=== PATIENT | male | born 1960 | race Two or more races ===

== ENCOUNTER 2018-04-19 02:47 | Emergency (ER) | payer SELFPAY ==
[~2018-04-19] VITALS: Ht 193 cm; Wt 158.8 kg
[2018-04-19] MEDS ORDERED: ONDANSETRON HCL 4 MG/2 ML VIAL ONE (03:51)
[2018-04-19] MEDS ORDERED: ONDANSETRON HCL 4 MG/2 ML VIAL IV ONE (04:00)
[2018-04-19] MEDS ORDERED: HYDROmorphone HCL 2 MG/ML VL IV ONE (04:00)
[2018-04-19] MEDS ORDERED: CARISOPRODOL 350 MG TAB PO ONE (08:30)
[2018-04-19 09:05] VITALS: BP 130/78
== END 2018-04-19 08:19 | disposition home or self-care (01) ==
LOC: EDBD 02:47 → ER 02:53
DX: M54.5 Low back pain (principal); J45.909 Unspecified asthma, uncomplicated
CPT/HCPCS: 72131; 93005; 96374; 96375; 99284; J1170; J2405

== ENCOUNTER → 2020-06-08 | Outpatient (CLI) | payer OTHER ==
[2020-06-08 10:32] LABS: Basophils # (auto) 0.1 10 ^3/uL (0-0.2); Basophils % (auto) 1.6 % (0.0-2.0); Eosinophils # (auto) 0.1 10 ^3/uL (0-0.8); Eosinophils % (auto) 1.5 % (0.0-7.0); Hematocrit 40.1 % (41.0-53.0); Hemoglobin 13.7 g/dL (13.5-17.5); Lymphocytes # (auto) 1.2 10 ^3/uL (0.4-5.4); Lymphocytes % (auto) 25.9 % (10.0-50.0); Mean Corpuscular Hemoglobin 30.2 pg (28.0-32.0); Mean Corpuscular Hgb Conc. 34.1 g/dL (32.0-36.0); Mean Corpuscular Volume 88.5 fL (80.0-100.0); Monocytes # (auto) 0.5 10 ^3/uL (0-1.3); Monocytes % (auto) 10.2 % (0.0-12.0); Neutrophils # (auto) 2.8 10 ^3/uL (1.6-8.6); Neutrophils % (auto) 60.8 % (37.0-80.0); Nucleated Red Blood Cells % 0.1 %; Platelet Count (auto) 221 10^3/uL (140-450); Red Blood Cells 4.53 10^6/uL (4.5-5.90); Red Cell Distribution Width 13.5 % (11.8-14.3); Urine Bacteria NONE SEEN /hpf (None Seen); Urine Blood Negative /uL (Negative); Urine Mucus FEW (None Seen); Urine Specific Gravity 1.024 (1.001-1.035); Urine WBC <1 /hpf (0 - 3); White Blood Cell 4.6 10^3/uL (4.4-10.8)
[2020-06-08 10:52] LABS: INR 1.05 (0.9-1.15); Partial Thromboplastin Time 30.5 sec (23.0-31.2)
[2020-06-08 11:06] LABS: Albumin 3.5 g/dL (3.4-5.0); Potassium 3.6 mmol/L (3.5-5.1)
[2020-06-08 11:11] LABS: Bilirubin, Total 0.6 mg/dL (0.2-1.0); Total Protein 6.7 g/dL (6.4-8.2)
== END | disposition home or self-care (01) ==
LOC: LAB 10:04
PROVIDERS: ATTEND Internal Medicine
DX: I50.9 Heart failure, unspecified (principal); J45.909 Unspecified asthma, uncomplicated; E66.01 Morbid (severe) obesity due to excess calories; K70.9 Alcoholic liver disease, unspecified; G47.33 Obstructive sleep apnea (adult) (pediatric); Z12.5 Encounter for screening for malignant neoplasm of prostate
CPT/HCPCS: 36415; 80053; 80061; 81001; 83036; 83880; 84153; 85025; 85610; 85730

== ENCOUNTER 2020-07-09 15:08 | Inpatient (IN) | payer OTHER ==
[~2020-07-09] VITALS: Ht 165.1 cm; Wt 147.9 kg
[2020-07-09] MEDS ORDERED: ETOMIDATE (2MG/ML) 20ML VIAL IV ONE ×2 (15:27→15:45)
[2020-07-09] MEDS ORDERED: SUCCINYLCHOLINE CHLORIDE 20 MG/ML 10ML VIAL IV ONE ×2 (15:27→15:45)
[2020-07-09] MEDS ORDERED: MIDAZOLAM DRIP 50 mg/50mL 50 ML IV ONE ×2 (15:28→16:39)
[2020-07-09] MEDS ORDERED: cefTRIAXone 1GM/50ML D5W 50 ML IV ONE (15:30)
[2020-07-09] MEDS ORDERED: FUROSEMIDE 40 MG/4 ML VIAL IV ONE (15:30)
[2020-07-09] MEDS: MIDAZOLAM DRIP 50 mg/50mL 50 ML IV SCH ×2 (15:45→20:00)
[2020-07-09] MEDS ORDERED: fentaNYL Drip 2500mCg/250mlNS 250 ML IV ONE (15:52)
[2020-07-09] MEDS ORDERED: NOREPINEPHRINE 8 MG/250ML KIT 250 ML IV ONE (15:58)
[2020-07-09 15:59] LABS: Urine Bacteria FEW /hpf (None Seen); Urine Blood 2+ /uL (Negative); Urine Hyaline Cast FEW /lpf (0 - 2); Urine Mucus FEW (None Seen); Urine WBC 2 /hpf (0 - 3)
[2020-07-09] MEDS: fentaNYL Drip 2500mCg/250mlNS 250 ML IV SCH (16:00)
[2020-07-09] MEDS: NOREPINEPHRINE 8 MG/250ML KIT 250 ML IV SCH (16:00)
[2020-07-09 16:03] LABS: Basophils # (auto) 0.1 10 ^3/uL (0-0.2); Basophils % (auto) 0.5 % (0.0-2.0); Eosinophils # (auto) 0 10 ^3/uL (0-0.8); Hematocrit 42.6 % (41.0-53.0); Hemoglobin 14.2 g/dL (13.5-17.5); Lymphocytes % (auto) 9.9 % (10.0-50.0); Mean Corpuscular Hemoglobin 29.9 pg (28.0-32.0); Mean Corpuscular Hgb Conc. 33.2 g/dL (32.0-36.0); Monocytes # (auto) 1.6 10 ^3/uL (0-1.3); Neutrophils # (auto) 16.4 10 ^3/uL (1.6-8.6); Neutrophils % (auto) 81.6 % (37.0-80.0); Nucleated Red Blood Cells % 0.2 %; Red Blood Cells 4.73 10^6/uL (4.5-5.90); Red Cell Distribution Width 13.8 % (11.8-14.3); White Blood Cell 20.1 10^3/uL (4.4-10.8)
[2020-07-09 16:12] LABS: Lactic Acid w/Reflex 10.2 mmol/L (0.4-2.0)
[2020-07-09 16:32] LABS: Potassium 3.4 mmol/L (3.5-5.1)
[2020-07-09 16:33] LABS: Albumin 2.6 g/dL (3.4-5.0); BUN/Creatinine Ratio 14.6; Bilirubin, Total 1.1 mg/dL (0.2-1.0); Calcium 7.4 mg/dL (8.5-10.1); Total Protein 7.4 g/dL (6.4-8.2)
[2020-07-09 16:34] LABS: CRP High Sensitivity 17.3 mg/dL (< 0.3); Magnesium 2.6 mg/dL (1.6-2.6)
[2020-07-09] MEDS ORDERED: ACETAMINOPHEN 650 mg PER 20.3 mL UD ONE (16:36)
[2020-07-09 16:53] LABS: INR 1.22 (0.9-1.15); Partial Thromboplastin Time 25.8 sec (23.0-31.2)
[2020-07-09] MEDS ORDERED: ACETAMINOPHEN 650 mg PER 20.3 mL UD PO ONE (17:15)
[2020-07-09] MEDS ORDERED: ENOXAPARIN SOD 150 MG/1 ML SYRINGE SC ONE (17:30)
[2020-07-09] MEDS ORDERED: DOXYCYCLINE 100MG/250ML 250 ML IV ONE (17:45)
[2020-07-09] MEDS ORDERED: DexAMETHasone SOD PHOS 10MG/1ML VIAL INJ IV ONE (17:45)
[2020-07-09] MEDS ORDERED: MORPHINE SULFATE INJECTION 2 MG/ML SYRG IV PRN (18:00)
[2020-07-09] MEDS ORDERED: NITROGLYCERIN 0.4 MG SL TAB SL PRN (18:00)
[2020-07-09 18:05] VITALS: BP 92/57
[2020-07-09] MEDS: PIPERACILLIN-TAZOB 2.25GM 50 ML IV SCH (18:49)
[2020-07-09 21:35] LABS: Creatinine, Urine 245 mg/dL (30.0-125.0); Sodium Urine 12 mmol/L (40-220)
[2020-07-10] VITALS (8 sets, daily range): BP systolic 98–128; BP diastolic 57–75
[2020-07-10] MEDS: PIPERACILLIN-TAZOB 2.25GM 50 ML IV SCH ×4 (01:17→17:31)
[2020-07-10] MEDS: NOREPINEPHRINE 8 MG/250ML KIT 250 ML IV SCH (07:26)
[2020-07-10] MEDS: DexAMETHasone SOD PHOS 10MG/1ML VIAL INJ IV SCH (09:58)
[2020-07-10] MEDS: ZINC SULFATE 220mg CAP or TAB PO SCH (09:59)
[2020-07-10] MEDS: ASPirin 81 mg TAB PO SCH (09:59)
[2020-07-10] MEDS: CHOLECALCIFEROL (VITD3) 2,000 UNIT CAP/TAB PO SCH (09:59)
[2020-07-10] MEDS: PANTOPRAZOLE 40 MG/10 ML VIAL INJ IV SCH (09:59)
[2020-07-10] MEDS: ENOXAPARIN SOD 150 MG/1 ML SYRINGE SC SCH (09:59)
[2020-07-10] MEDS: ASCORBIC ACID 1,000 MG TAB PO SCH (10:00)
[2020-07-10] MEDS ORDERED: DOXYCYCLINE 100MG/250ML 250 ML IV SCH (10:00)
[2020-07-10 11:02] LABS: Hematocrit 41.9 % (41.0-53.0); Hemoglobin 13.9 g/dL (13.5-17.5); Mean Corpuscular Hemoglobin 29.4 pg (28.0-32.0); Mean Corpuscular Hgb Conc. 33.3 g/dL (32.0-36.0); Mean Corpuscular Volume 88.3 fL (80.0-100.0); Red Blood Cells 4.74 10^6/uL (4.5-5.90); Red Cell Distribution Width 13.3 % (11.8-14.3); White Blood Cell 23.5 10^3/uL (4.4-10.8)
[2020-07-10 11:05] LABS: Basophils % (manual) 0 (0.0-2.0); Blast Cells 0; Eosinophils % (manual) 0 (0-7); Monocytes % (manual) 0 (0-12); Promyelocytes % 0; Reactive Lymphocytes 0
[2020-07-10 11:14] LABS: Albumin 2.4 g/dL (3.4-5.0); BUN/Creatinine Ratio 20.2; Bilirubin, Total 0.7 mg/dL (0.2-1.0); Calcium 7.7 mg/dL (8.5-10.1); Potassium 3.4 mmol/L (3.5-5.1)
[2020-07-10] MEDS ORDERED: SODIUM CHLORIDE 0.9% 1,000 ML IV ONE (12:30)
[2020-07-10] MEDS: MIDAZOLAM DRIP 50 mg/50mL 50 ML IV SCH ×3 (12:54→22:00)
[2020-07-10 13:24] LABS: Band Neutrophils % (manual) 12; Lymphocytes % (manual) 3 (10.0-50.0); Metamyelocytes % 2; Myelocytes % 1
[2020-07-10] MEDS: fentaNYL Drip 2500mCg/250mlNS 250 ML IV SCH (16:00)
[2020-07-10] MEDS ORDERED: REMDESIVIR 200 MG in NS 210ml LOADING DOSE ADULT IV ONE (18:00)
[2020-07-10] MEDS: LINEZOLID 600MG/300ML 300 ML IV SCH (22:21)
[2020-07-11] VITALS (88 sets, daily range): BP systolic 81–126; BP diastolic 33–66
[2020-07-11] MEDS ORDERED: MIDAZOLAM DRIP 50 mg/50mL 50 ML IV ONE (00:24)
[2020-07-11 05:55] LABS: Eosinophils # (auto) 0 10 ^3/uL (0-0.8); Lymphocytes # (auto) 0.6 10 ^3/uL (0.4-5.4); Monocytes # (auto) 0.9 10 ^3/uL (0-1.3); Monocytes % (auto) 3.8 % (0.0-12.0)
[2020-07-11] MEDS: PIPERACILLIN-TAZOB 2.25GM 50 ML IV SCH ×3 (06:00→12:06)
[2020-07-11 06:03] LABS: Basophils # (auto) 0.2 10 ^3/uL (0-0.2); Basophils % (auto) 0.7 % (0.0-2.0); Hemoglobin 13.2 g/dL (13.5-17.5); Lymphocytes % (auto) 2.5 % (10.0-50.0); Mean Corpuscular Hemoglobin 30.8 pg (28.0-32.0); Mean Corpuscular Hgb Conc. 34.8 g/dL (32.0-36.0); Mean Corpuscular Volume 88.6 fL (80.0-100.0); Neutrophils # (auto) 21.3 10 ^3/uL (1.6-8.6); Nucleated Red Blood Cells % 0.7 %; Red Blood Cells 4.29 10^6/uL (4.5-5.90); Red Cell Distribution Width 13.7 % (11.8-14.3); White Blood Cell 22.9 10^3/uL (4.4-10.8)
[2020-07-11 07:41] LABS: Potassium 3.7 mmol/L (3.5-5.1)
[2020-07-11 07:53] LABS: BUN/Creatinine Ratio 21.3; Calcium 7.6 mg/dL (8.5-10.1)
[2020-07-11] MEDS: ENOXAPARIN SOD 150 MG/1 ML SYRINGE SC SCH ×2 (09:02→22:00)
[2020-07-11] MEDS: LINEZOLID 600MG/300ML 300 ML IV SCH ×2 (09:02→22:00)
[2020-07-11] MEDS: ASPirin 81 mg TAB PO SCH (09:03)
[2020-07-11] MEDS: CHOLECALCIFEROL (VITD3) 2,000 UNIT CAP/TAB PO SCH (09:03)
[2020-07-11] MEDS: MIDAZOLAM DRIP 50 mg/50mL 50 ML IV SCH ×2 (09:03→18:47)
[2020-07-11] MEDS: ASCORBIC ACID 1,000 MG TAB PO SCH (09:03)
[2020-07-11] MEDS: ZINC SULFATE 220mg CAP or TAB PO SCH (09:03)
[2020-07-11] MEDS: DexAMETHasone SOD PHOS 10MG/1ML VIAL INJ IV SCH (09:04)
[2020-07-11] MEDS: PANTOPRAZOLE 40 MG/10 ML VIAL INJ IV SCH (10:00)
[2020-07-11] MEDS: fentaNYL Drip 2500mCg/250mlNS 250 ML IV SCH (16:00)
[2020-07-11] MEDS: NOREPINEPHRINE 8 MG/250ML KIT 250 ML IV SCH (16:00)
[2020-07-11] MEDS: REMDESIVIR 100mg in NS 230ml DAILYx4DAYS (NO VENT) IV SCH (17:45)
[2020-07-11] MEDS: PIPERACILLIN-TAZOB 3.375GM 100 ML IV SCH (17:47)
[2020-07-12] VITALS (84 sets, daily range): BP systolic 84–131; BP diastolic 46–78
[2020-07-12 01:32] LABS: Basophils # (auto) 0.2 10 ^3/uL (0-0.2); Basophils % (auto) 0.8 % (0.0-2.0); Eosinophils # (auto) 0 10 ^3/uL (0-0.8); Hemoglobin 13.6 g/dL (13.5-17.5); Lymphocytes # (auto) 0.7 10 ^3/uL (0.4-5.4); Lymphocytes % (auto) 3.2 % (10.0-50.0); Mean Corpuscular Volume 88.2 fL (80.0-100.0); Monocytes # (auto) 0.7 10 ^3/uL (0-1.3); Monocytes % (auto) 3.2 % (0.0-12.0); Neutrophils # (auto) 20.4 10 ^3/uL (1.6-8.6); Neutrophils % (auto) 92.8 % (37.0-80.0); Nucleated Red Blood Cells % 0.8 %; Red Blood Cells 4.53 10^6/uL (4.5-5.90); Red Cell Distribution Width 13.9 % (11.8-14.3); White Blood Cell 21.9 10^3/uL (4.4-10.8)
[2020-07-12 01:47] LABS: Albumin 2.2 g/dL (3.4-5.0); Calcium 7.7 mg/dL (8.5-10.1); Potassium 3.7 mmol/L (3.5-5.1)
[2020-07-12 01:52] LABS: BUN/Creatinine Ratio 25.7; Bilirubin, Total 0.5 mg/dL (0.2-1.0); Total Protein 6.3 g/dL (6.4-8.2)
[2020-07-12] MEDS: PIPERACILLIN-TAZOB 3.375GM 100 ML IV SCH ×4 (05:48→20:00)
[2020-07-12] MEDS: LINEZOLID 600MG/300ML 300 ML IV SCH ×2 (09:42→21:52)
[2020-07-12] MEDS: CHOLECALCIFEROL (VITD3) 2,000 UNIT CAP/TAB PO SCH (10:25)
[2020-07-12] MEDS: DexAMETHasone SOD PHOS 10MG/1ML VIAL INJ IV SCH (10:25)
[2020-07-12] MEDS: PANTOPRAZOLE 40 MG/10 ML VIAL INJ IV SCH (10:25)
[2020-07-12] MEDS: ASCORBIC ACID 1,000 MG TAB PO SCH (10:25)
[2020-07-12] MEDS: ZINC SULFATE 220mg CAP or TAB PO SCH (10:25)
[2020-07-12] MEDS: ASPirin 81 mg TAB PO SCH (10:25)
[2020-07-12] MEDS: ENOXAPARIN SOD 150 MG/1 ML SYRINGE SC SCH ×2 (10:26→21:36)
[2020-07-12] MEDS ORDERED: ATROPINE SULF 1 MG/10ml SYR IV PRN (12:00)
[2020-07-12] MEDS ORDERED: DEXTROSE (50%) 50ML SYRG IV PRN (12:00)
[2020-07-12] MEDS ORDERED: FUROSEMIDE 20 MG/2 ML VIAL IV ONE (13:30)
[2020-07-12] MEDS: SOD CHL 0.45% 1,000 ML IV SCH (15:10)
[2020-07-12] MEDS: REMDESIVIR 100mg in NS 230ml DAILYx4DAYS (NO VENT) IV SCH (17:00)
[2020-07-12 17:47] LABS: Creatinine, Urine 189 mg/dL (30.0-125.0); Sodium Urine 22 mmol/L (40-220)
[2020-07-12] MEDS ORDERED: FUROSEMIDE 20 MG/2 ML VIAL IV SCH (18:00)
[2020-07-12] MEDS ORDERED: SOD CHL 0.45% 500 ML IV ONE (18:15)
[2020-07-12] MEDS: ACCU-CHEK COMFORT CURVE STRIP VI SCH ×2 (18:20→21:36)
[2020-07-12] MEDS: InsuLIN REG 1unit/0.01ml Soln (100units/ml) SC SCH ×2 (18:30→22:19)
[2020-07-12] MEDS: NOREPINEPHRINE 8 MG/250ML KIT 250 ML IV SCH (19:02)
[2020-07-12] MEDS: fentaNYL Drip 2500mCg/250mlNS 250 ML IV SCH (19:32)
[2020-07-12] MEDS: MIDAZOLAM DRIP 50 mg/50mL 50 ML IV SCH (21:37)
[2020-07-12] MEDS ORDERED: ATORVASTATIN 20 MG TAB PO SCH (22:00)
[2020-07-13] VITALS (89 sets, daily range): BP systolic 92–148; BP diastolic 49–97
[2020-07-13] MEDS: PIPERACILLIN-TAZOB 3.375GM 100 ML IV SCH ×4 (00:27→19:03)
[2020-07-13] MEDS: MIDAZOLAM DRIP 50 mg/50mL 50 ML IV SCH ×3 (00:43→12:56)
[2020-07-13] MEDS: SOD CHL 0.45% 1,000 ML IV SCH ×2 (06:34→17:40)
[2020-07-13] MEDS: fentaNYL Drip 2500mCg/250mlNS 250 ML IV SCH (06:39)
[2020-07-13] MEDS: ACCU-CHEK COMFORT CURVE STRIP VI SCH ×4 (06:54→21:31)
[2020-07-13] MEDS: InsuLIN REG 1unit/0.01ml Soln (100units/ml) SC SCH ×4 (06:55→21:31)
[2020-07-13 09:12] LABS: Basophils # (auto) 0.1 10 ^3/uL (0-0.2); Basophils % (auto) 0.4 % (0.0-2.0); Eosinophils # (auto) 0 10 ^3/uL (0-0.8); Hemoglobin 13.6 g/dL (13.5-17.5); Lymphocytes # (auto) 0.3 10 ^3/uL (0.4-5.4); Mean Corpuscular Hemoglobin 29.7 pg (28.0-32.0); Mean Corpuscular Volume 89.8 fL (80.0-100.0); Monocytes # (auto) 0.7 10 ^3/uL (0-1.3); Monocytes % (auto) 4.4 % (0.0-12.0); Neutrophils # (auto) 15.7 10 ^3/uL (1.6-8.6); Neutrophils % (auto) 93.2 % (37.0-80.0); Nucleated Red Blood Cells % 0.2 %; Red Blood Cells 4.57 10^6/uL (4.5-5.90); Red Cell Distribution Width 13.7 % (11.8-14.3); White Blood Cell 16.9 10^3/uL (4.4-10.8)
[2020-07-13 09:33] LABS: Albumin 2.1 g/dL (3.4-5.0); BUN/Creatinine Ratio 27.9; Calcium 7.3 mg/dL (8.5-10.1); Potassium 3.9 mmol/L (3.5-5.1)
[2020-07-13 09:36] LABS: Bilirubin, Total 0.7 mg/dL (0.2-1.0); Total Protein 6.1 g/dL (6.4-8.2)
[2020-07-13] MEDS: ASPirin 81 mg TAB PO SCH (09:44)
[2020-07-13] MEDS: PANTOPRAZOLE 40 MG/10 ML VIAL INJ IV SCH (09:44)
[2020-07-13] MEDS: DexAMETHasone SOD PHOS 10MG/1ML VIAL INJ IV SCH (09:44)
[2020-07-13] MEDS: ZINC SULFATE 220mg CAP or TAB PO SCH (09:44)
[2020-07-13] MEDS: ASCORBIC ACID 1,000 MG TAB PO SCH (09:44)
[2020-07-13] MEDS: ENOXAPARIN SOD 150 MG/1 ML SYRINGE SC SCH ×2 (09:45→21:30)
[2020-07-13] MEDS: CHOLECALCIFEROL (VITD3) 2,000 UNIT CAP/TAB PO SCH (09:45)
[2020-07-13] MEDS: LINEZOLID 600MG/300ML 300 ML IV SCH ×2 (09:46→21:30)
[2020-07-13] MEDS: IPRATROPIUM BROM 0.5 MG/2.5ML INH SOL NEB SCH ×2 (13:05→18:36)
[2020-07-13] MEDS: ALBUTEROL SULF 2.5 MG/0.5ML(0.5%) NEB SOLN NEB SCH ×2 (13:06→18:36)
[2020-07-13] MEDS: REMDESIVIR 100mg in NS 230ml DAILYx4DAYS (NO VENT) IV SCH (17:34)
[2020-07-13] MEDS: NOREPINEPHRINE 8 MG/250ML KIT 250 ML IV SCH (17:34)
[2020-07-13] MEDS: BUDESONIDE (INHALATION) 0.5 MG/2 ML NEB NEB SCH (18:36)
[2020-07-13] MEDS ORDERED: DOPamine 1600MCG/ML D5W 250 ML IV ONE (21:38)
[2020-07-13] MEDS: DOPamine 1600MCG/ML D5W 250 ML IV SCH (22:00)
[2020-07-13] MEDS: ACETAMINOPHEN 500 MG TAB PO PRN (23:57)
[2020-07-14] VITALS (92 sets, daily range): BP systolic 89–161; BP diastolic 58–103
[2020-07-14] MEDS: IPRATROPIUM BROM 0.5 MG/2.5ML INH SOL NEB SCH ×4 (00:23→18:24)
[2020-07-14] MEDS: ALBUTEROL SULF 2.5 MG/0.5ML(0.5%) NEB SOLN NEB SCH ×4 (00:23→18:24)
[2020-07-14 03:42] LABS: Basophils # (auto) 0.1 10 ^3/uL (0-0.2); Basophils % (auto) 0.5 % (0.0-2.0); Eosinophils # (auto) 0 10 ^3/uL (0-0.8); Eosinophils % (auto) 0.1 % (0.0-7.0); Hemoglobin 14.7 g/dL (13.5-17.5); Lymphocytes # (auto) 0.2 10 ^3/uL (0.4-5.4); Lymphocytes % (auto) 1.4 % (10.0-50.0); Mean Corpuscular Hemoglobin 28.8 pg (28.0-32.0); Mean Corpuscular Volume 90.2 fL (80.0-100.0); Monocytes # (auto) 0.9 10 ^3/uL (0-1.3); Monocytes % (auto) 5.4 % (0.0-12.0); Neutrophils % (auto) 92.6 % (37.0-80.0); Nucleated Red Blood Cells % 0.5 %; Red Cell Distribution Width 13.4 % (11.8-14.3); White Blood Cell 17.2 10^3/uL (4.4-10.8)
[2020-07-14 04:00] LABS: Albumin 2.2 g/dL (3.4-5.0); Calcium 7.5 mg/dL (8.5-10.1); Potassium 4.3 mmol/L (3.5-5.1)
[2020-07-14] MEDS: DOPamine 1600MCG/ML D5W 250 ML IV SCH ×2 (04:00→13:44)
[2020-07-14 04:05] LABS: BUN/Creatinine Ratio 26.6; Bilirubin, Total 1.3 mg/dL (0.2-1.0); Total Protein 6.3 g/dL (6.4-8.2)
[2020-07-14] MEDS: PIPERACILLIN-TAZOB 3.375GM 100 ML IV SCH ×4 (05:30→18:32)
[2020-07-14] MEDS: SOD CHL 0.45% 1,000 ML IV SCH ×2 (05:31→12:29)
[2020-07-14] MEDS: ACCU-CHEK COMFORT CURVE STRIP VI SCH ×4 (05:31→22:00)
[2020-07-14] MEDS: InsuLIN REG 1unit/0.01ml Soln (100units/ml) SC SCH ×4 (05:31→22:00)
[2020-07-14] MEDS: LINEZOLID 600MG/300ML 300 ML IV SCH ×2 (10:05→22:00)
[2020-07-14] MEDS: DexAMETHasone SOD PHOS 10MG/1ML VIAL INJ IV SCH (10:05)
[2020-07-14] MEDS: ENOXAPARIN SOD 150 MG/1 ML SYRINGE SC SCH ×2 (10:06→22:00)
[2020-07-14] MEDS: CHOLECALCIFEROL (VITD3) 2,000 UNIT CAP/TAB PO SCH (10:06)
[2020-07-14] MEDS: ASCORBIC ACID 1,000 MG TAB PO SCH (10:06)
[2020-07-14] MEDS: ZINC SULFATE 220mg CAP or TAB PO SCH (10:06)
[2020-07-14] MEDS: PANTOPRAZOLE 40 MG/10 ML VIAL INJ IV SCH (10:06)
[2020-07-14] MEDS: ASPirin 81 mg TAB PO SCH (10:06)
[2020-07-14] MEDS: BUDESONIDE (INHALATION) 0.5 MG/2 ML NEB NEB SCH ×2 (10:22→18:24)
[2020-07-14] MEDS ORDERED: Jevity 1.2 Cal/Fiber 1 Liter GT SCH (11:15)
[2020-07-14] MEDS: fentaNYL Drip 2500mCg/250mlNS 250 ML IV SCH (16:00)
[2020-07-14] MEDS: NOREPINEPHRINE 8 MG/250ML KIT 250 ML IV SCH (16:00)
[2020-07-14] MEDS: REMDESIVIR 100mg in NS 230ml DAILYx4DAYS (NO VENT) IV SCH (17:10)
[2020-07-14] MEDS: MIDAZOLAM DRIP 50 mg/50mL 50 ML IV SCH ×2 (17:10→18:36)
[2020-07-14] MEDS: ACETAMINOPHEN 500 MG TAB PO PRN (20:14)
[2020-07-15] VITALS (98 sets, daily range): BP systolic 103–150; BP diastolic 57–91
[2020-07-15] MEDS: DOPamine 1600MCG/ML D5W 250 ML IV SCH ×3 (00:42→13:41)
[2020-07-15 02:40] LABS: Basophils # (auto) 0.1 10 ^3/uL (0-0.2); Eosinophils # (auto) 0 10 ^3/uL (0-0.8); Hematocrit 46.3 % (41.0-53.0); Lymphocytes # (auto) 0.2 10 ^3/uL (0.4-5.4); Lymphocytes % (auto) 1.1 % (10.0-50.0); Mean Corpuscular Hemoglobin 29.2 pg (28.0-32.0); Mean Corpuscular Hgb Conc. 32.4 g/dL (32.0-36.0); Mean Corpuscular Volume 90.2 fL (80.0-100.0); Monocytes # (auto) 0.6 10 ^3/uL (0-1.3); Monocytes % (auto) 4.2 % (0.0-12.0); Neutrophils # (auto) 13.8 10 ^3/uL (1.6-8.6); Neutrophils % (auto) 93.7 % (37.0-80.0); Nucleated Red Blood Cells % 0.2 %; Red Blood Cells 5.13 10^6/uL (4.5-5.90); Red Cell Distribution Width 13.7 % (11.8-14.3); White Blood Cell 14.7 10^3/uL (4.4-10.8)
[2020-07-15 03:00] LABS: Calcium 7.2 mg/dL (8.5-10.1); Potassium 4.6 mmol/L (3.5-5.1)
[2020-07-15 03:03] LABS: Albumin 2.1 g/dL (3.4-5.0); BUN/Creatinine Ratio 21.1
[2020-07-15 03:08] LABS: Bilirubin, Total 1.2 mg/dL (0.2-1.0); Total Protein 6.2 g/dL (6.4-8.2)
[2020-07-15] MEDS: ACCU-CHEK COMFORT CURVE STRIP VI SCH ×4 (05:36→21:14)
[2020-07-15] MEDS: InsuLIN REG 1unit/0.01ml Soln (100units/ml) SC SCH ×4 (05:36→21:14)
[2020-07-15] MEDS: PIPERACILLIN-TAZOB 3.375GM 100 ML IV SCH ×4 (05:36→18:00)
[2020-07-15] MEDS: ALBUTEROL SULF 2.5 MG/0.5ML(0.5%) NEB SOLN NEB SCH ×5 (06:00→22:21)
[2020-07-15] MEDS: IPRATROPIUM BROM 0.5 MG/2.5ML INH SOL NEB SCH ×5 (06:00→22:22)
[2020-07-15] MEDS: SOD CHL 0.45% 1,000 ML IV SCH (07:15)
[2020-07-15] MEDS: DexAMETHasone SOD PHOS 10MG/1ML VIAL INJ IV SCH (09:31)
[2020-07-15] MEDS: PANTOPRAZOLE 40 MG/10 ML VIAL INJ IV SCH (09:32)
[2020-07-15] MEDS: CHOLECALCIFEROL (VITD3) 2,000 UNIT CAP/TAB PO SCH (09:32)
[2020-07-15] MEDS: ZINC SULFATE 220mg CAP or TAB PO SCH (09:32)
[2020-07-15] MEDS: ASCORBIC ACID 1,000 MG TAB PO SCH (09:32)
[2020-07-15] MEDS: LINEZOLID 600MG/300ML 300 ML IV SCH ×2 (09:32→21:13)
[2020-07-15] MEDS: ENOXAPARIN SOD 150 MG/1 ML SYRINGE SC SCH ×3 (09:33→22:00)
[2020-07-15] MEDS: BUDESONIDE (INHALATION) 0.5 MG/2 ML NEB NEB SCH ×2 (09:34→18:46)
[2020-07-15] MEDS: fentaNYL Drip 2500mCg/250mlNS 250 ML IV SCH (11:56)
[2020-07-15] MEDS: MIDAZOLAM DRIP 50 mg/50mL 50 ML IV SCH (13:41)
[2020-07-15] MEDS: ACETAMINOPHEN 500 MG TAB PO PRN (14:25)
[2020-07-15] MEDS: NOREPINEPHRINE 8 MG/250ML KIT 250 ML IV SCH (17:19)
[2020-07-15] MEDS ORDERED: IBUPROFEN 600 MG TAB PO PRN (22:15)
[2020-07-15] MEDS ORDERED: ACETAMINOPHEN 650 MG RECT SUPP PR PRN (22:15)
[2020-07-16] VITALS (99 sets, daily range): BP systolic 89–142; BP diastolic 52–89
[2020-07-16 01:54] LABS: Basophils # (auto) 0 10 ^3/uL (0-0.2); Basophils % (auto) 0.2 % (0.0-2.0); Eosinophils # (auto) 0 10 ^3/uL (0-0.8); Hematocrit 44.3 % (41.0-53.0); Hemoglobin 14.8 g/dL (13.5-17.5); Lymphocytes # (auto) 0.2 10 ^3/uL (0.4-5.4); Lymphocytes % (auto) 1.4 % (10.0-50.0); Mean Corpuscular Hemoglobin 29.9 pg (28.0-32.0); Mean Corpuscular Hgb Conc. 33.5 g/dL (32.0-36.0); Mean Corpuscular Volume 89.3 fL (80.0-100.0); Monocytes # (auto) 0.8 10 ^3/uL (0-1.3); Monocytes % (auto) 5.6 % (0.0-12.0); Neutrophils # (auto) 13.6 10 ^3/uL (1.6-8.6); Neutrophils % (auto) 92.8 % (37.0-80.0); Nucleated Red Blood Cells % 0.3 %; Red Blood Cells 4.97 10^6/uL (4.5-5.90); Red Cell Distribution Width 13.6 % (11.8-14.3); White Blood Cell 14.6 10^3/uL (4.4-10.8)
[2020-07-16 02:08] LABS: INR 1.27 (0.9-1.15); Partial Thromboplastin Time 29.5 sec (23.0-31.2)
[2020-07-16] MEDS: SOD CHL 0.45% 1,000 ML IV SCH ×2 (03:15→23:00)
[2020-07-16] MEDS: DOPamine 1600MCG/ML D5W 250 ML IV SCH ×3 (03:39→21:00)
[2020-07-16] MEDS: PIPERACILLIN-TAZOB 3.375GM 100 ML IV SCH ×4 (05:30→18:17)
[2020-07-16] MEDS: BUDESONIDE (INHALATION) 0.5 MG/2 ML NEB NEB SCH ×2 (06:01→22:47)
[2020-07-16] MEDS: IPRATROPIUM BROM 0.5 MG/2.5ML INH SOL NEB SCH ×3 (06:01→18:55)
[2020-07-16] MEDS: ALBUTEROL SULF 2.5 MG/0.5ML(0.5%) NEB SOLN NEB SCH ×3 (06:01→18:55)
[2020-07-16] MEDS: InsuLIN REG 1unit/0.01ml Soln (100units/ml) SC SCH ×4 (06:14→21:39)
[2020-07-16] MEDS: ACCU-CHEK COMFORT CURVE STRIP VI SCH ×4 (06:15→21:40)
[2020-07-16] MEDS: ZINC SULFATE 220mg CAP or TAB PO SCH (09:45)
[2020-07-16] MEDS: PANTOPRAZOLE 40 MG/10 ML VIAL INJ IV SCH (09:45)
[2020-07-16] MEDS: DexAMETHasone SOD PHOS 10MG/1ML VIAL INJ IV SCH (09:45)
[2020-07-16] MEDS: LINEZOLID 600MG/300ML 300 ML IV SCH (09:45)
[2020-07-16] MEDS: ASCORBIC ACID 1,000 MG TAB PO SCH (09:45)
[2020-07-16] MEDS: ENOXAPARIN SOD 150 MG/1 ML SYRINGE SC SCH ×2 (09:46→20:27)
[2020-07-16] MEDS: CHOLECALCIFEROL (VITD3) 2,000 UNIT CAP/TAB PO SCH (09:46)
[2020-07-16] MEDS: MIDAZOLAM DRIP 50 mg/50mL 50 ML IV SCH (10:34)
[2020-07-16] MEDS: fentaNYL Drip 2500mCg/250mlNS 250 ML IV SCH (12:42)
[2020-07-16] MEDS: NOREPINEPHRINE 8 MG/250ML KIT 250 ML IV SCH (16:00)
[2020-07-17] VITALS (94 sets, daily range): BP systolic 72–125; BP diastolic 36–76
[2020-07-17] MEDS: ALBUTEROL SULF 2.5 MG/0.5ML(0.5%) NEB SOLN NEB SCH ×4 (00:16→18:22)
[2020-07-17] MEDS: IPRATROPIUM BROM 0.5 MG/2.5ML INH SOL NEB SCH ×4 (00:16→18:22)
[2020-07-17 02:27] LABS: Basophils # (auto) 0 10 ^3/uL (0-0.2); Basophils % (auto) 0.2 % (0.0-2.0); Eosinophils # (auto) 0.2 10 ^3/uL (0-0.8); Eosinophils % (auto) 1.3 % (0.0-7.0); Hematocrit 40.4 % (41.0-53.0); Hemoglobin 13.5 g/dL (13.5-17.5); Lymphocytes # (auto) 0.5 10 ^3/uL (0.4-5.4); Lymphocytes % (auto) 3.6 % (10.0-50.0); Mean Corpuscular Hgb Conc. 33.5 g/dL (32.0-36.0); Mean Corpuscular Volume 89.7 fL (80.0-100.0); Monocytes # (auto) 1.3 10 ^3/uL (0-1.3); Monocytes % (auto) 8.5 % (0.0-12.0); Neutrophils # (auto) 12.7 10 ^3/uL (1.6-8.6); Neutrophils % (auto) 86.4 % (37.0-80.0); Nucleated Red Blood Cells % 0.1 %; Red Cell Distribution Width 13.5 % (11.8-14.3); White Blood Cell 14.7 10^3/uL (4.4-10.8)
[2020-07-17 02:54] LABS: Albumin 2.1 g/dL (3.4-5.0); Calcium 7.3 mg/dL (8.5-10.1); Potassium 5.3 mmol/L (3.5-5.1)
[2020-07-17 02:57] LABS: BUN/Creatinine Ratio 26.5; Bilirubin, Total 1.4 mg/dL (0.2-1.0); Total Protein 5.6 g/dL (6.4-8.2)
[2020-07-17] MEDS: PIPERACILLIN-TAZOB 3.375GM 100 ML IV SCH ×5 (05:18→23:20)
[2020-07-17] MEDS: DOPamine 1600MCG/ML D5W 250 ML IV SCH ×2 (05:18→11:00)
[2020-07-17] MEDS: InsuLIN REG 1unit/0.01ml Soln (100units/ml) SC SCH ×4 (06:09→22:00)
[2020-07-17] MEDS: ACCU-CHEK COMFORT CURVE STRIP VI SCH ×4 (06:09→22:00)
[2020-07-17] MEDS: BUDESONIDE (INHALATION) 0.5 MG/2 ML NEB NEB SCH ×2 (06:15→18:22)
[2020-07-17] MEDS: ENOXAPARIN SOD 150 MG/1 ML SYRINGE SC SCH ×2 (10:00→22:00)
[2020-07-17] MEDS: MIDAZOLAM DRIP 50 mg/50mL 50 ML IV SCH ×2 (10:30→15:07)
[2020-07-17] MEDS: fentaNYL Drip 2500mCg/250mlNS 250 ML IV SCH (11:01)
[2020-07-17] MEDS: PANTOPRAZOLE 40 MG/10 ML VIAL INJ IV SCH (11:20)
[2020-07-17] MEDS: DexAMETHasone SOD PHOS 10MG/1ML VIAL INJ IV SCH (11:20)
[2020-07-17] MEDS: ASCORBIC ACID 1,000 MG TAB PO SCH (11:21)
[2020-07-17] MEDS: ZINC SULFATE 220mg CAP or TAB PO SCH (11:21)
[2020-07-17] MEDS: CHOLECALCIFEROL (VITD3) 2,000 UNIT CAP/TAB PO SCH (11:21)
[2020-07-17] MEDS ORDERED: InsuLIN REG 1unit/0.01ml Soln (100units/ml) IV ONE (11:45)
[2020-07-17] MEDS ORDERED: DEXTROSE (50%) 50ML SYRG IV ONE (11:45)
[2020-07-17] MEDS ORDERED: SODIUM BICARBONATE 8.4% INJ 50ML SYRINGE IV ONE (12:00)
[2020-07-17] MEDS: NOREPINEPHRINE 8 MG/250ML KIT 250 ML IV SCH (12:20)
[2020-07-18] VITALS (93 sets, daily range): BP systolic 95–124; BP diastolic 39–64
[2020-07-18] MEDS: IPRATROPIUM BROM 0.5 MG/2.5ML INH SOL NEB SCH ×4 (01:30→22:03)
[2020-07-18] MEDS: ALBUTEROL SULF 2.5 MG/0.5ML(0.5%) NEB SOLN NEB SCH ×4 (01:30→22:03)
[2020-07-18] MEDS: DOPamine 1600MCG/ML D5W 250 ML IV SCH ×2 (03:45→19:05)
[2020-07-18 04:20] LABS: Basophils # (auto) 0 10 ^3/uL (0-0.2); Basophils % (auto) 0.1 % (0.0-2.0); Eosinophils # (auto) 0 10 ^3/uL (0-0.8); Eosinophils % (auto) 0.1 % (0.0-7.0); Hematocrit 36.3 % (41.0-53.0); Hemoglobin 12.1 g/dL (13.5-17.5); Lymphocytes # (auto) 0.2 10 ^3/uL (0.4-5.4); Lymphocytes % (auto) 1.6 % (10.0-50.0); Mean Corpuscular Hemoglobin 29.9 pg (28.0-32.0); Mean Corpuscular Hgb Conc. 33.4 g/dL (32.0-36.0); Mean Corpuscular Volume 89.6 fL (80.0-100.0); Monocytes # (auto) 0.7 10 ^3/uL (0-1.3); Monocytes % (auto) 4.9 % (0.0-12.0); Neutrophils # (auto) 12.6 10 ^3/uL (1.6-8.6); Neutrophils % (auto) 93.3 % (37.0-80.0); Red Blood Cells 4.05 10^6/uL (4.5-5.90); Red Cell Distribution Width 13.3 % (11.8-14.3); White Blood Cell 13.4 10^3/uL (4.4-10.8)
[2020-07-18] MEDS: PIPERACILLIN-TAZOB 3.375GM 100 ML IV SCH ×3 (06:00→19:03)
[2020-07-18] MEDS: InsuLIN REG 1unit/0.01ml Soln (100units/ml) SC SCH ×4 (06:02→22:34)
[2020-07-18] MEDS: ACCU-CHEK COMFORT CURVE STRIP VI SCH ×4 (06:03→22:30)
[2020-07-18] MEDS: fentaNYL Drip 2500mCg/250mlNS 250 ML IV SCH (09:46)
[2020-07-18] MEDS: MIDAZOLAM DRIP 50 mg/50mL 50 ML IV SCH ×2 (09:48→19:06)
[2020-07-18] MEDS: ENOXAPARIN SOD 150 MG/1 ML SYRINGE SC SCH ×2 (09:48→22:00)
[2020-07-18] MEDS: BUDESONIDE (INHALATION) 0.5 MG/2 ML NEB NEB SCH ×2 (10:00→22:03)
[2020-07-18] MEDS: CHOLECALCIFEROL (VITD3) 2,000 UNIT CAP/TAB PO SCH (11:24)
[2020-07-18] MEDS: ASCORBIC ACID 1,000 MG TAB PO SCH (11:24)
[2020-07-18] MEDS: PANTOPRAZOLE 40 MG/10 ML VIAL INJ IV SCH (11:24)
[2020-07-18] MEDS: ZINC SULFATE 220mg CAP or TAB PO SCH (11:24)
[2020-07-18] MEDS: DexAMETHasone SOD PHOS 10MG/1ML VIAL INJ IV SCH (11:25)
[2020-07-18 11:43] LABS: Potassium 5.3 mmol/L (3.5-5.1); Sodium 134 mmol/L (136-145)
[2020-07-18 11:44] LABS: Alanine Aminotransferase 98 U/L (16-61); Albumin 2.1 g/dL (3.4-5.0); Alkaline Phosphatase 70 U/L (45-117); Anion Gap 5 (5-15); Aspartate Aminotransferase 37 U/L (15-37); BUN/Creatinine Ratio 26.5; Bilirubin, Total 0.7 mg/dL (0.2-1.0); Blood Urea Nitrogen 26 mg/dL (7-18); Calcium 7.3 mg/dL (8.5-10.1); Carbon Dioxide 29 mmol/L (21-32); Chloride 100 mmol/L (98-107); GFR African American 101 mL/min; GFR Non-African American 84 mL/min; Glucose 202 mg/dL (74-106); Total Protein 5.5 g/dL (6.4-8.2)
[2020-07-18] MEDS: NOREPINEPHRINE 8 MG/250ML KIT 250 ML IV SCH (16:00)
[2020-07-19] VITALS (89 sets, daily range): BP systolic 100–132; BP diastolic 48–68
[2020-07-19] MEDS: PIPERACILLIN-TAZOB 3.375GM 100 ML IV SCH ×4 (00:40→18:00)
[2020-07-19] MEDS: ALBUTEROL SULF 2.5 MG/0.5ML(0.5%) NEB SOLN NEB SCH ×3 (05:37→23:01)
[2020-07-19] MEDS: BUDESONIDE (INHALATION) 0.5 MG/2 ML NEB NEB SCH ×2 (05:37→23:02)
[2020-07-19] MEDS: IPRATROPIUM BROM 0.5 MG/2.5ML INH SOL NEB SCH ×3 (05:40→23:03)
[2020-07-19 06:05] LABS: Basophils # (auto) 0 10 ^3/uL (0-0.2); Basophils % (auto) 0.1 % (0.0-2.0); Eosinophils # (auto) 0 10 ^3/uL (0-0.8); Eosinophils % (auto) 0.1 % (0.0-7.0); Hematocrit 32.5 % (41.0-53.0); Hemoglobin 11.1 g/dL (13.5-17.5); Lymphocytes # (auto) 0.4 10 ^3/uL (0.4-5.4); Mean Corpuscular Hemoglobin 30.7 pg (28.0-32.0); Mean Corpuscular Hgb Conc. 34.2 g/dL (32.0-36.0); Mean Corpuscular Volume 89.6 fL (80.0-100.0); Monocytes # (auto) 0.8 10 ^3/uL (0-1.3); Monocytes % (auto) 5.4 % (0.0-12.0); Neutrophils # (auto) 12.8 10 ^3/uL (1.6-8.6); Neutrophils % (auto) 91.4 % (37.0-80.0); Red Blood Cells 3.63 10^6/uL (4.5-5.90); Red Cell Distribution Width 13.4 % (11.8-14.3)
[2020-07-19 06:11] LABS: INR 1.18 (0.9-1.15); Partial Thromboplastin Time 27.6 sec (23.0-31.2)
[2020-07-19 06:13] LABS: Potassium 5.2 mmol/L (3.5-5.1)
[2020-07-19 06:19] LABS: Albumin 2.2 g/dL (3.4-5.0); BUN/Creatinine Ratio 27.6; Bilirubin, Total 0.7 mg/dL (0.2-1.0); Calcium 7.5 mg/dL (8.5-10.1); Total Protein 5.6 g/dL (6.4-8.2)
[2020-07-19] MEDS: InsuLIN REG 1unit/0.01ml Soln (100units/ml) SC SCH ×4 (06:36→22:00)
[2020-07-19] MEDS: ACCU-CHEK COMFORT CURVE STRIP VI SCH ×4 (07:13→22:00)
[2020-07-19] MEDS: ENOXAPARIN SOD 150 MG/1 ML SYRINGE SC SCH ×2 (10:00→22:00)
[2020-07-19] MEDS: ZINC SULFATE 220mg CAP or TAB PO SCH (10:00)
[2020-07-19] MEDS: CHOLECALCIFEROL (VITD3) 2,000 UNIT CAP/TAB PO SCH (10:00)
[2020-07-19] MEDS: ASCORBIC ACID 1,000 MG TAB PO SCH (10:00)
[2020-07-19] MEDS: PANTOPRAZOLE 40 MG/10 ML VIAL INJ IV SCH (10:33)
[2020-07-19] MEDS: DexAMETHasone SOD PHOS 10MG/1ML VIAL INJ IV SCH (10:33)
[2020-07-19] MEDS ORDERED: IOHEXOL 350 MG/ML 100ML IJ ONE (13:57)
[2020-07-19] MEDS: DOPamine 1600MCG/ML D5W 250 ML IV SCH (14:15)
[2020-07-19] MEDS: NOREPINEPHRINE 8 MG/250ML KIT 250 ML IV SCH (16:00)
[2020-07-19] MEDS: fentaNYL Drip 2500mCg/250mlNS 250 ML IV SCH (16:00)
[2020-07-20] VITALS (88 sets, daily range): BP systolic 104–144; BP diastolic 49–78
[2020-07-20] MEDS: PIPERACILLIN-TAZOB 3.375GM 100 ML IV SCH ×4 (00:12→17:55)
[2020-07-20] MEDS: fentaNYL Drip 2500mCg/250mlNS 250 ML IV SCH ×2 (01:32→13:32)
[2020-07-20 06:03] LABS: Hematocrit 33.2 % (41.0-53.0); Hemoglobin 10.8 g/dL (13.5-17.5); Mean Corpuscular Hemoglobin 29.5 pg (28.0-32.0); Mean Corpuscular Hgb Conc. 32.6 g/dL (32.0-36.0); Mean Corpuscular Volume 90.4 fL (80.0-100.0); Red Blood Cells 3.68 10^6/uL (4.5-5.90); Red Cell Distribution Width 13.7 % (11.8-14.3); White Blood Cell 14.7 10^3/uL (4.4-10.8)
[2020-07-20] MEDS: ALBUTEROL SULF 2.5 MG/0.5ML(0.5%) NEB SOLN NEB SCH ×3 (06:15→22:47)
[2020-07-20] MEDS: BUDESONIDE (INHALATION) 0.5 MG/2 ML NEB NEB SCH ×2 (06:15→22:47)
[2020-07-20] MEDS: InsuLIN REG 1unit/0.01ml Soln (100units/ml) SC SCH ×4 (06:17→21:48)
[2020-07-20] MEDS: ACCU-CHEK COMFORT CURVE STRIP VI SCH ×4 (06:18→21:58)
[2020-07-20] MEDS: IPRATROPIUM BROM 0.5 MG/2.5ML INH SOL NEB SCH ×3 (06:20→22:47)
[2020-07-20 06:28] LABS: Albumin 2.3 g/dL (3.4-5.0); BUN/Creatinine Ratio 27.3; Bilirubin, Total 0.6 mg/dL (0.2-1.0); Calcium 7.8 mg/dL (8.5-10.1); Total Protein 5.7 g/dL (6.4-8.2)
[2020-07-20 07:08] LABS: Band Neutrophils % (manual) 0; Basophils % (manual) 0 (0.0-2.0); Blast Cells 0; Eosinophils % (manual) 0 (0-7); Promyelocytes % 0; Reactive Lymphocytes 0
[2020-07-20] MEDS: DOPamine 1600MCG/ML D5W 250 ML IV SCH (07:30)
[2020-07-20 07:48] LABS: Lymphocytes % (manual) 4 (10.0-50.0); Metamyelocytes % 1; Monocytes % (manual) 4 (0-12); Myelocytes % 2
[2020-07-20] MEDS: MIDAZOLAM DRIP 50 mg/50mL 50 ML IV SCH ×2 (08:38→16:50)
[2020-07-20] MEDS: DexAMETHasone SOD PHOS 10MG/1ML VIAL INJ IV SCH (09:56)
[2020-07-20] MEDS: ASCORBIC ACID 1,000 MG TAB PO SCH (09:56)
[2020-07-20] MEDS: PANTOPRAZOLE 40 MG/10 ML VIAL INJ IV SCH (09:56)
[2020-07-20] MEDS: ZINC SULFATE 220mg CAP or TAB PO SCH (09:56)
[2020-07-20] MEDS: CHOLECALCIFEROL (VITD3) 2,000 UNIT CAP/TAB PO SCH (09:57)
[2020-07-20] MEDS: ENOXAPARIN SOD 150 MG/1 ML SYRINGE SC SCH ×2 (09:57→21:58)
[2020-07-20] MEDS: NOREPINEPHRINE 8 MG/250ML KIT 250 ML IV SCH (16:00)
[2020-07-21] VITALS (101 sets, daily range): BP systolic 95–153; BP diastolic 41–87
[2020-07-21] MEDS: PIPERACILLIN-TAZOB 3.375GM 100 ML IV SCH ×3 (00:33→11:33)
[2020-07-21] MEDS: DOPamine 1600MCG/ML D5W 250 ML IV SCH ×3 (00:33→15:30)
[2020-07-21] MEDS: fentaNYL Drip 2500mCg/250mlNS 250 ML IV SCH ×3 (00:39→21:47)
[2020-07-21] MEDS: NOREPINEPHRINE 8 MG/250ML KIT 250 ML IV SCH (00:47)
[2020-07-21] MEDS: MIDAZOLAM DRIP 50 mg/50mL 50 ML IV SCH ×3 (00:48→23:07)
[2020-07-21] MEDS: ACCU-CHEK COMFORT CURVE STRIP VI SCH ×4 (06:03→22:00)
[2020-07-21] MEDS: InsuLIN REG 1unit/0.01ml Soln (100units/ml) SC SCH ×4 (06:04→22:00)
[2020-07-21 06:20] LABS: Hematocrit 32.7 % (41.0-53.0); Hemoglobin 10.7 g/dL (13.5-17.5); Mean Corpuscular Hemoglobin 29.6 pg (28.0-32.0); Mean Corpuscular Hgb Conc. 32.8 g/dL (32.0-36.0); Mean Corpuscular Volume 90.1 fL (80.0-100.0); Red Blood Cells 3.63 10^6/uL (4.5-5.90); Red Cell Distribution Width 13.9 % (11.8-14.3); White Blood Cell 19.6 10^3/uL (4.4-10.8)
[2020-07-21 06:45] LABS: Potassium 4.8 mmol/L (3.5-5.1)
[2020-07-21 06:51] LABS: Basophils % (manual) 0 (0.0-2.0); Blast Cells 0; Eosinophils % (manual) 0 (0-7); Promyelocytes % 0; Reactive Lymphocytes 0
[2020-07-21 06:58] LABS: Albumin 2.3 g/dL (3.4-5.0); Bilirubin, Total 0.7 mg/dL (0.2-1.0); Calcium 7.7 mg/dL (8.5-10.1); Total Protein 5.7 g/dL (6.4-8.2)
[2020-07-21] MEDS: IPRATROPIUM BROM 0.5 MG/2.5ML INH SOL NEB SCH ×3 (07:18→18:33)
[2020-07-21] MEDS: BUDESONIDE (INHALATION) 0.5 MG/2 ML NEB NEB SCH ×2 (07:18→18:33)
[2020-07-21] MEDS: ALBUTEROL SULF 2.5 MG/0.5ML(0.5%) NEB SOLN NEB SCH ×3 (07:18→18:33)
[2020-07-21] MEDS: ZINC SULFATE 220mg CAP or TAB PO SCH (09:30)
[2020-07-21] MEDS: DexAMETHasone SOD PHOS 10MG/1ML VIAL INJ IV SCH (09:30)
[2020-07-21] MEDS: PANTOPRAZOLE 40 MG/10 ML VIAL INJ IV SCH (09:30)
[2020-07-21] MEDS: ASCORBIC ACID 1,000 MG TAB PO SCH (09:31)
[2020-07-21] MEDS: CHOLECALCIFEROL (VITD3) 2,000 UNIT CAP/TAB PO SCH (09:31)
[2020-07-21] MEDS: ENOXAPARIN SOD 150 MG/1 ML SYRINGE SC SCH (09:31)
[2020-07-21 11:42] LABS: Band Neutrophils % (manual) 1; Lymphocytes % (manual) 3 (10.0-50.0); Metamyelocytes % 1; Monocytes % (manual) 9 (0-12); Myelocytes % 1
[2020-07-22] VITALS (96 sets, daily range): BP systolic 99–142; BP diastolic 48–93
[2020-07-22] MEDS: MIDAZOLAM DRIP 50 mg/50mL 50 ML IV SCH ×4 (00:05→22:19)
[2020-07-22] MEDS: DOPamine 1600MCG/ML D5W 250 ML IV SCH ×3 (00:23→15:56)
[2020-07-22] MEDS: IPRATROPIUM BROM 0.5 MG/2.5ML INH SOL NEB SCH ×3 (06:00→21:37)
[2020-07-22] MEDS: ALBUTEROL SULF 2.5 MG/0.5ML(0.5%) NEB SOLN NEB SCH ×3 (06:00→21:37)
[2020-07-22 06:06] LABS: Basophils # (auto) 0.1 10 ^3/uL (0-0.2); Basophils % (auto) 0.3 % (0.0-2.0); Eosinophils # (auto) 0 10 ^3/uL (0-0.8); Eosinophils % (auto) 0.1 % (0.0-7.0); Hematocrit 34.5 % (41.0-53.0); Hemoglobin 11.4 g/dL (13.5-17.5); Lymphocytes # (auto) 0.9 10 ^3/uL (0.4-5.4); Lymphocytes % (auto) 4.5 % (10.0-50.0); Mean Corpuscular Hgb Conc. 33.1 g/dL (32.0-36.0); Mean Corpuscular Volume 90.4 fL (80.0-100.0); Monocytes # (auto) 1.1 10 ^3/uL (0-1.3); Neutrophils % (auto) 89.1 % (37.0-80.0); Nucleated Red Blood Cells % 0.1 %; Red Blood Cells 3.82 10^6/uL (4.5-5.90); Red Cell Distribution Width 13.8 % (11.8-14.3); White Blood Cell 19.1 10^3/uL (4.4-10.8)
[2020-07-22 06:26] LABS: Potassium 4.6 mmol/L (3.5-5.1)
[2020-07-22 06:36] LABS: Albumin 2.4 g/dL (3.4-5.0); BUN/Creatinine Ratio 31.5; Bilirubin, Total 0.6 mg/dL (0.2-1.0); Calcium 8.2 mg/dL (8.5-10.1); Total Protein 5.9 g/dL (6.4-8.2)
[2020-07-22] MEDS: InsuLIN REG 1unit/0.01ml Soln (100units/ml) SC SCH ×4 (07:00→22:11)
[2020-07-22] MEDS: ACCU-CHEK COMFORT CURVE STRIP VI SCH ×4 (07:00→22:10)
[2020-07-22] MEDS: fentaNYL Drip 2500mCg/250mlNS 250 ML IV SCH ×2 (08:19→20:39)
[2020-07-22] MEDS: CHOLECALCIFEROL (VITD3) 2,000 UNIT CAP/TAB PO SCH (09:38)
[2020-07-22] MEDS: ASCORBIC ACID 1,000 MG TAB PO SCH (09:38)
[2020-07-22] MEDS: PANTOPRAZOLE 40 MG/10 ML VIAL INJ IV SCH (09:38)
[2020-07-22] MEDS: ZINC SULFATE 220mg CAP or TAB PO SCH (09:38)
[2020-07-22] MEDS ORDERED: DexAMETHasone SOD PHOS 10MG/1ML VIAL INJ IV SCH (10:00)
[2020-07-22] MEDS: BUDESONIDE (INHALATION) 0.5 MG/2 ML NEB NEB SCH ×2 (10:16→21:37)
[2020-07-22] MEDS: NOREPINEPHRINE 8 MG/250ML KIT 250 ML IV SCH (16:00)
[2020-07-23] VITALS (96 sets, daily range): BP systolic 79–138; BP diastolic 39–79
[2020-07-23] MEDS: DOPamine 1600MCG/ML D5W 250 ML IV SCH ×3 (01:50→18:56)
[2020-07-23] MEDS: MIDAZOLAM DRIP 50 mg/50mL 50 ML IV SCH ×3 (01:51→22:31)
[2020-07-23 04:35] LABS: Basophils # (auto) 0 10 ^3/uL (0-0.2); Basophils % (auto) 0.1 % (0.0-2.0); Eosinophils # (auto) 0 10 ^3/uL (0-0.8); Eosinophils % (auto) 0.1 % (0.0-7.0); Hematocrit 34.5 % (41.0-53.0); Hemoglobin 11.6 g/dL (13.5-17.5); Lymphocytes # (auto) 0.6 10 ^3/uL (0.4-5.4); Lymphocytes % (auto) 3.1 % (10.0-50.0); Mean Corpuscular Hemoglobin 30.1 pg (28.0-32.0); Mean Corpuscular Hgb Conc. 33.5 g/dL (32.0-36.0); Monocytes # (auto) 1.1 10 ^3/uL (0-1.3); Monocytes % (auto) 5.8 % (0.0-12.0); Neutrophils # (auto) 16.4 10 ^3/uL (1.6-8.6); Neutrophils % (auto) 90.9 % (37.0-80.0); Nucleated Red Blood Cells % 0.1 %; Red Blood Cells 3.84 10^6/uL (4.5-5.90); Red Cell Distribution Width 14.1 % (11.8-14.3); White Blood Cell 18.1 10^3/uL (4.4-10.8)
[2020-07-23 04:36] LABS: Albumin 2.4 g/dL (3.4-5.0); Potassium 4.6 mmol/L (3.5-5.1)
[2020-07-23 04:42] LABS: BUN/Creatinine Ratio 32.4; Bilirubin, Total 0.6 mg/dL (0.2-1.0); Total Protein 5.9 g/dL (6.4-8.2)
[2020-07-23] MEDS: InsuLIN REG 1unit/0.01ml Soln (100units/ml) SC SCH ×3 (07:00→17:00)
[2020-07-23] MEDS: ACCU-CHEK COMFORT CURVE STRIP VI SCH ×3 (07:03→17:00)
[2020-07-23] MEDS: IPRATROPIUM BROM 0.5 MG/2.5ML INH SOL NEB SCH ×3 (07:48→21:29)
[2020-07-23] MEDS: ALBUTEROL SULF 2.5 MG/0.5ML(0.5%) NEB SOLN NEB SCH ×3 (07:48→21:29)
[2020-07-23] MEDS: fentaNYL Drip 2500mCg/250mlNS 250 ML IV SCH ×2 (09:09→18:55)
[2020-07-23] MEDS: ASCORBIC ACID 1,000 MG TAB PO SCH (10:00)
[2020-07-23] MEDS: BUDESONIDE (INHALATION) 0.5 MG/2 ML NEB NEB SCH ×2 (10:00→21:29)
[2020-07-23] MEDS: PANTOPRAZOLE 40 MG/10 ML VIAL INJ IV SCH (10:09)
[2020-07-23] MEDS: CHOLECALCIFEROL (VITD3) 2,000 UNIT CAP/TAB PO SCH (10:10)
[2020-07-23] MEDS: ZINC SULFATE 220mg CAP or TAB PO SCH (10:10)
[2020-07-23] MEDS: NOREPINEPHRINE 8 MG/250ML KIT 250 ML IV SCH (16:00)
[2020-07-23] MEDS ORDERED: TPN PER PHARMACY 0 ML IV SCH (19:00)
[2020-07-23] MEDS ORDERED: AMINO ACID INFUSION IN D5W 2,000 ML IV NR (20:00)
[2020-07-24] VITALS (97 sets, daily range): BP systolic 61–127; BP diastolic 27–78
[2020-07-24] MEDS: DOPamine 1600MCG/ML D5W 250 ML IV SCH ×3 (05:03→20:20)
[2020-07-24] MEDS: fentaNYL Drip 2500mCg/250mlNS 250 ML IV SCH (05:03)
[2020-07-24] MEDS: MIDAZOLAM DRIP 50 mg/50mL 50 ML IV SCH ×4 (05:03→20:15)
[2020-07-24] MEDS: IPRATROPIUM BROM 0.5 MG/2.5ML INH SOL NEB SCH ×3 (06:49→20:35)
[2020-07-24] MEDS: ALBUTEROL SULF 2.5 MG/0.5ML(0.5%) NEB SOLN NEB SCH ×3 (06:49→20:35)
[2020-07-24] MEDS: BUDESONIDE (INHALATION) 0.5 MG/2 ML NEB NEB SCH ×2 (06:53→20:35)
[2020-07-24 08:30] LABS: Basophils # (auto) 0 10 ^3/uL (0-0.2); Basophils % (auto) 0.3 % (0.0-2.0); Eosinophils # (auto) 0.4 10 ^3/uL (0-0.8); Eosinophils % (auto) 3.6 % (0.0-7.0); Hemoglobin 12.1 g/dL (13.5-17.5); Lymphocytes # (auto) 0.8 10 ^3/uL (0.4-5.4); Mean Corpuscular Hemoglobin 30.4 pg (28.0-32.0); Mean Corpuscular Hgb Conc. 33.6 g/dL (32.0-36.0); Mean Corpuscular Volume 90.5 fL (80.0-100.0); Monocytes # (auto) 0.5 10 ^3/uL (0-1.3); Monocytes % (auto) 5.5 % (0.0-12.0); Neutrophils # (auto) 8.2 10 ^3/uL (1.6-8.6); Neutrophils % (auto) 82.6 % (37.0-80.0); Nucleated Red Blood Cells % 0.1 %; Red Blood Cells 3.98 10^6/uL (4.5-5.90); White Blood Cell 9.9 10^3/uL (4.4-10.8)
[2020-07-24 08:53] LABS: Potassium 3.7 mmol/L (3.5-5.1)
[2020-07-24 09:13] LABS: Albumin 2.4 g/dL (3.4-5.0); BUN/Creatinine Ratio 30.4; Bilirubin, Total 1.1 mg/dL (0.2-1.0); Calcium 8.1 mg/dL (8.5-10.1); Magnesium 2.3 mg/dL (1.6-2.6); Phosphorus 3.6 mg/dL (2.5-4.90); Pre Albumin 34.4 mg/dL (20.0-40.0); Total Protein 5.5 g/dL (6.4-8.2)
[2020-07-24] MEDS: ASCORBIC ACID 1,000 MG TAB PO SCH (11:46)
[2020-07-24] MEDS: ZINC SULFATE 220mg CAP or TAB PO SCH (11:46)
[2020-07-24] MEDS: PANTOPRAZOLE 40 MG/10 ML VIAL INJ IV SCH (11:46)
[2020-07-24] MEDS: CHOLECALCIFEROL (VITD3) 2,000 UNIT CAP/TAB PO SCH (11:47)
[2020-07-24] MEDS: ACCU-CHEK COMFORT CURVE STRIP VI SCH ×3 (11:48→23:32)
[2020-07-24] MEDS: InsuLIN REG 1unit/0.01ml Soln (100units/ml) SC SCH ×2 (11:48→18:03)
[2020-07-24] MEDS ORDERED: DEXTROSE (50%) 50ML SYRG IV SCH (12:00)
[2020-07-24] MEDS: NOREPINEPHRINE 8 MG/250ML KIT 250 ML IV SCH (16:00)
[2020-07-24] MEDS ORDERED: TPN PER PHARMACY IV NR ×9 (20:00)
[2020-07-25] VITALS (99 sets, daily range): BP systolic 71–120; BP diastolic 41–82
[2020-07-25 04:05] LABS: Basophils # (auto) 0.1 10 ^3/uL (0-0.2); Eosinophils # (auto) 0.5 10 ^3/uL (0-0.8); Eosinophils % (auto) 5.5 % (0.0-7.0); Hematocrit 35.4 % (41.0-53.0); Hemoglobin 11.7 g/dL (13.5-17.5); Lymphocytes # (auto) 0.5 10 ^3/uL (0.4-5.4); Lymphocytes % (auto) 6.1 % (10.0-50.0); Mean Corpuscular Hgb Conc. 33.2 g/dL (32.0-36.0); Mean Corpuscular Volume 90.6 fL (80.0-100.0); Monocytes # (auto) 0.4 10 ^3/uL (0-1.3); Monocytes % (auto) 4.8 % (0.0-12.0); Neutrophils # (auto) 6.9 10 ^3/uL (1.6-8.6); Neutrophils % (auto) 82.6 % (37.0-80.0); Red Blood Cells 3.91 10^6/uL (4.5-5.90); Red Cell Distribution Width 14.4 % (11.8-14.3); White Blood Cell 8.3 10^3/uL (4.4-10.8)
[2020-07-25 04:24] LABS: Potassium 3.6 mmol/L (3.5-5.1)
[2020-07-25 04:31] LABS: BUN/Creatinine Ratio 21.9; Bilirubin, Total 0.9 mg/dL (0.2-1.0); Calcium 7.2 mg/dL (8.5-10.1); Magnesium 2.1 mg/dL (1.6-2.6); Phosphorus 3.2 mg/dL (2.5-4.90); Total Protein 5.1 g/dL (6.4-8.2)
[2020-07-25] MEDS: MIDAZOLAM DRIP 50 mg/50mL 50 ML IV SCH ×4 (05:00→22:00)
[2020-07-25] MEDS: DOPamine 1600MCG/ML D5W 250 ML IV SCH ×3 (05:00→15:47)
[2020-07-25] MEDS: fentaNYL Drip 2500mCg/250mlNS 250 ML IV SCH ×2 (05:00→15:31)
[2020-07-25] MEDS: ACCU-CHEK COMFORT CURVE STRIP VI SCH ×3 (06:00→18:15)
[2020-07-25] MEDS: InsuLIN REG 1unit/0.01ml Soln (100units/ml) SC SCH ×4 (06:00→18:21)
[2020-07-25] MEDS: IPRATROPIUM BROM 0.5 MG/2.5ML INH SOL NEB SCH ×3 (08:39→23:32)
[2020-07-25] MEDS: ALBUTEROL SULF 2.5 MG/0.5ML(0.5%) NEB SOLN NEB SCH ×3 (08:39→23:32)
[2020-07-25] MEDS: BUDESONIDE (INHALATION) 0.5 MG/2 ML NEB NEB SCH ×2 (08:39→23:32)
[2020-07-25] MEDS: ZINC SULFATE 220mg CAP or TAB PO SCH (10:45)
[2020-07-25] MEDS: ASCORBIC ACID 1,000 MG TAB PO SCH (10:45)
[2020-07-25] MEDS: PANTOPRAZOLE 40 MG/10 ML VIAL INJ IV SCH (10:45)
[2020-07-25] MEDS: CHOLECALCIFEROL (VITD3) 2,000 UNIT CAP/TAB PO SCH (10:45)
[2020-07-25] MEDS: NOREPINEPHRINE 8 MG/250ML KIT 250 ML IV SCH (16:00)
[2020-07-25] MEDS ORDERED: TPN PER PHARMACY IV NR ×10 (20:00)
[2020-07-26] VITALS (96 sets, daily range): BP systolic 74–114; BP diastolic 38–79
[2020-07-26] MEDS: fentaNYL Drip 2500mCg/250mlNS 250 ML IV SCH ×2 (03:00→12:29)
[2020-07-26] MEDS: DOPamine 1600MCG/ML D5W 250 ML IV SCH ×5 (04:00→22:30)
[2020-07-26] MEDS: MIDAZOLAM DRIP 50 mg/50mL 50 ML IV SCH ×3 (05:00→18:13)
[2020-07-26 05:36] LABS: Basophils # (auto) 0 10 ^3/uL (0-0.2); Basophils % (auto) 0.5 % (0.0-2.0); Eosinophils # (auto) 0.6 10 ^3/uL (0-0.8); Eosinophils % (auto) 6.4 % (0.0-7.0); Hematocrit 35.4 % (41.0-53.0); Hemoglobin 12.1 g/dL (13.5-17.5); Lymphocytes # (auto) 0.5 10 ^3/uL (0.4-5.4); Lymphocytes % (auto) 4.9 % (10.0-50.0); Mean Corpuscular Hemoglobin 30.9 pg (28.0-32.0); Mean Corpuscular Hgb Conc. 34.1 g/dL (32.0-36.0); Mean Corpuscular Volume 90.6 fL (80.0-100.0); Monocytes # (auto) 0.5 10 ^3/uL (0-1.3); Monocytes % (auto) 5.1 % (0.0-12.0); Neutrophils # (auto) 8.3 10 ^3/uL (1.6-8.6); Neutrophils % (auto) 83.1 % (37.0-80.0); Nucleated Red Blood Cells % 0.1 %; Red Blood Cells 3.91 10^6/uL (4.5-5.90); Red Cell Distribution Width 14.5 % (11.8-14.3)
[2020-07-26 05:48] LABS: Potassium 3.8 mmol/L (3.5-5.1)
[2020-07-26 05:56] LABS: BUN/Creatinine Ratio 19.4
[2020-07-26 05:57] LABS: Bilirubin, Total 0.8 mg/dL (0.2-1.0); Calcium 7.5 mg/dL (8.5-10.1); Magnesium 2.1 mg/dL (1.6-2.6); Phosphorus 3.2 mg/dL (2.5-4.90); Total Protein 5.5 g/dL (6.4-8.2)
[2020-07-26] MEDS: InsuLIN REG 1unit/0.01ml Soln (100units/ml) SC SCH ×4 (06:00→17:31)
[2020-07-26] MEDS: ACCU-CHEK COMFORT CURVE STRIP VI SCH ×4 (06:00→17:30)
[2020-07-26] MEDS: PANTOPRAZOLE 40 MG/10 ML VIAL INJ IV SCH (09:21)
[2020-07-26] MEDS: CHOLECALCIFEROL (VITD3) 2,000 UNIT CAP/TAB PO SCH (09:22)
[2020-07-26] MEDS: ZINC SULFATE 220mg CAP or TAB PO SCH (09:22)
[2020-07-26] MEDS: ASCORBIC ACID 1,000 MG TAB PO SCH (09:22)
[2020-07-26] MEDS: ALBUTEROL SULF 2.5 MG/0.5ML(0.5%) NEB SOLN NEB SCH ×3 (09:56→22:33)
[2020-07-26] MEDS: IPRATROPIUM BROM 0.5 MG/2.5ML INH SOL NEB SCH ×3 (09:57→22:33)
[2020-07-26] MEDS: BUDESONIDE (INHALATION) 0.5 MG/2 ML NEB NEB SCH ×2 (09:57→22:33)
[2020-07-26] MEDS: NOREPINEPHRINE 8 MG/250ML KIT 250 ML IV SCH (16:00)
[2020-07-26] MEDS ORDERED: TPN PER PHARMACY IV NR ×21 (20:00)
[2020-07-27] VITALS (92 sets, daily range): BP systolic 50–140; BP diastolic 15–92
[2020-07-27] MEDS: InsuLIN REG 1unit/0.01ml Soln (100units/ml) SC SCH ×4 (00:20→18:00)
[2020-07-27] MEDS: DOPamine 1600MCG/ML D5W 250 ML IV SCH ×3 (03:00→23:22)
[2020-07-27 04:24] LABS: Basophils # (auto) 0.1 10 ^3/uL (0-0.2); Basophils % (auto) 0.6 % (0.0-2.0); Eosinophils # (auto) 0.7 10 ^3/uL (0-0.8); Eosinophils % (auto) 8.7 % (0.0-7.0); Hematocrit 37.3 % (41.0-53.0); Hemoglobin 12.5 g/dL (13.5-17.5); Lymphocytes # (auto) 0.5 10 ^3/uL (0.4-5.4); Lymphocytes % (auto) 6.4 % (10.0-50.0); Mean Corpuscular Hemoglobin 30.3 pg (28.0-32.0); Mean Corpuscular Hgb Conc. 33.5 g/dL (32.0-36.0); Mean Corpuscular Volume 90.5 fL (80.0-100.0); Monocytes # (auto) 0.5 10 ^3/uL (0-1.3); Monocytes % (auto) 6.3 % (0.0-12.0); Neutrophils # (auto) 6.6 10 ^3/uL (1.6-8.6); Red Blood Cells 4.13 10^6/uL (4.5-5.90); Red Cell Distribution Width 14.4 % (11.8-14.3); White Blood Cell 8.5 10^3/uL (4.4-10.8)
[2020-07-27 05:00] LABS: Albumin 2.1 g/dL (3.4-5.0); Calcium 8.1 mg/dL (8.5-10.1); Magnesium 2.3 mg/dL (1.6-2.6)
[2020-07-27 05:04] LABS: BUN/Creatinine Ratio 20.3; Bilirubin, Total 0.6 mg/dL (0.2-1.0); Phosphorus 2.9 mg/dL (2.5-4.90); Total Protein 5.7 g/dL (6.4-8.2)
[2020-07-27] MEDS: ACCU-CHEK COMFORT CURVE STRIP VI SCH ×4 (05:56→18:00)
[2020-07-27] MEDS: IPRATROPIUM BROM 0.5 MG/2.5ML INH SOL NEB SCH ×3 (06:29→22:04)
[2020-07-27] MEDS: ALBUTEROL SULF 2.5 MG/0.5ML(0.5%) NEB SOLN NEB SCH ×3 (06:29→22:04)
[2020-07-27] MEDS: BUDESONIDE (INHALATION) 0.5 MG/2 ML NEB NEB SCH ×2 (06:30→22:04)
[2020-07-27] MEDS: ASCORBIC ACID 1,000 MG TAB PO SCH (09:11)
[2020-07-27] MEDS: ZINC SULFATE 220mg CAP or TAB PO SCH (09:11)
[2020-07-27] MEDS: PANTOPRAZOLE 40 MG/10 ML VIAL INJ IV SCH (09:11)
[2020-07-27] MEDS: CHOLECALCIFEROL (VITD3) 2,000 UNIT CAP/TAB PO SCH (09:11)
[2020-07-27] MEDS: NOREPINEPHRINE 8 MG/250ML KIT 250 ML IV SCH (16:00)
[2020-07-27] MEDS: fentaNYL Drip 2500mCg/250mlNS 250 ML IV SCH ×2 (16:42→23:40)
[2020-07-27] MEDS: MIDAZOLAM DRIP 50 mg/50mL 50 ML IV SCH (18:48)
[2020-07-27] MEDS ORDERED: TPN PER PHARMACY IV NR ×10 (20:00)
[2020-07-28] VITALS (92 sets, daily range): BP systolic 62–142; BP diastolic 30–86
[2020-07-28] MEDS: ACCU-CHEK COMFORT CURVE STRIP VI SCH ×4 (00:06→17:31)
[2020-07-28] MEDS: InsuLIN REG 1unit/0.01ml Soln (100units/ml) SC SCH ×4 (00:07→17:32)
[2020-07-28] MEDS: MIDAZOLAM DRIP 50 mg/50mL 50 ML IV SCH ×3 (02:25→18:56)
[2020-07-28] MEDS: DOPamine 1600MCG/ML D5W 250 ML IV SCH ×9 (02:40→23:55)
[2020-07-28 04:21] LABS: Basophils # (auto) 0.1 10 ^3/uL (0-0.2); Basophils % (auto) 0.7 % (0.0-2.0); Eosinophils # (auto) 0.7 10 ^3/uL (0-0.8); Eosinophils % (auto) 8.9 % (0.0-7.0); Hemoglobin 11.9 g/dL (13.5-17.5); Lymphocytes # (auto) 0.4 10 ^3/uL (0.4-5.4); Lymphocytes % (auto) 4.8 % (10.0-50.0); Mean Corpuscular Hemoglobin 30.3 pg (28.0-32.0); Mean Corpuscular Hgb Conc. 33.2 g/dL (32.0-36.0); Mean Corpuscular Volume 91.3 fL (80.0-100.0); Monocytes # (auto) 0.5 10 ^3/uL (0-1.3); Monocytes % (auto) 5.9 % (0.0-12.0); Neutrophils # (auto) 6.4 10 ^3/uL (1.6-8.6); Neutrophils % (auto) 79.7 % (37.0-80.0); Red Blood Cells 3.94 10^6/uL (4.5-5.90); Red Cell Distribution Width 14.5 % (11.8-14.3); White Blood Cell 8.1 10^3/uL (4.4-10.8)
[2020-07-28 04:52] LABS: Albumin 2.1 g/dL (3.4-5.0); BUN/Creatinine Ratio 19.1; Bilirubin, Total 0.5 mg/dL (0.2-1.0); Calcium 7.9 mg/dL (8.5-10.1); Magnesium 2.2 mg/dL (1.6-2.6); Phosphorus 2.7 mg/dL (2.5-4.90); Total Protein 5.8 g/dL (6.4-8.2)
[2020-07-28] MEDS: ALBUTEROL SULF 2.5 MG/0.5ML(0.5%) NEB SOLN NEB SCH ×3 (07:01→18:52)
[2020-07-28] MEDS: IPRATROPIUM BROM 0.5 MG/2.5ML INH SOL NEB SCH ×3 (07:01→18:52)
[2020-07-28] MEDS: BUDESONIDE (INHALATION) 0.5 MG/2 ML NEB NEB SCH ×2 (10:00→18:52)
[2020-07-28] MEDS: PANTOPRAZOLE 40 MG/10 ML VIAL INJ IV SCH (10:29)
[2020-07-28] MEDS: ASCORBIC ACID 1,000 MG TAB PO SCH (10:29)
[2020-07-28] MEDS: ZINC SULFATE 220mg CAP or TAB PO SCH (10:29)
[2020-07-28] MEDS: CHOLECALCIFEROL (VITD3) 2,000 UNIT CAP/TAB PO SCH (10:29)
[2020-07-28] MEDS: fentaNYL Drip 2500mCg/250mlNS 250 ML IV SCH (11:56)
[2020-07-28] MEDS: NOREPINEPHRINE 8 MG/250ML KIT 250 ML IV SCH (16:00)
[2020-07-28] MEDS ORDERED: TPN PER PHARMACY IV NR ×10 (20:00)
[2020-07-29] VITALS (92 sets, daily range): BP systolic 56–129; BP diastolic 31–76
[2020-07-29] MEDS: ACETAMINOPHEN 500 MG TAB PO PRN (02:23)
[2020-07-29] MEDS: MIDAZOLAM DRIP 50 mg/50mL 50 ML IV SCH ×2 (02:47→18:00)
[2020-07-29] MEDS: DOPamine 1600MCG/ML D5W 250 ML IV SCH ×6 (02:50→18:46)
[2020-07-29 04:29] LABS: Basophils # (auto) 0 10 ^3/uL (0-0.2); Basophils % (auto) 0.8 % (0.0-2.0); Eosinophils # (auto) 0.6 10 ^3/uL (0-0.8); Eosinophils % (auto) 10.3 % (0.0-7.0); Hematocrit 34.9 % (41.0-53.0); Hemoglobin 11.7 g/dL (13.5-17.5); Lymphocytes # (auto) 0.4 10 ^3/uL (0.4-5.4); Lymphocytes % (auto) 7.1 % (10.0-50.0); Mean Corpuscular Hemoglobin 30.2 pg (28.0-32.0); Mean Corpuscular Hgb Conc. 33.4 g/dL (32.0-36.0); Mean Corpuscular Volume 90.4 fL (80.0-100.0); Monocytes # (auto) 0.8 10 ^3/uL (0-1.3); Monocytes % (auto) 14.9 % (0.0-12.0); Neutrophils # (auto) 3.7 10 ^3/uL (1.6-8.6); Neutrophils % (auto) 66.9 % (37.0-80.0); Nucleated Red Blood Cells % 0.1 %; Red Blood Cells 3.86 10^6/uL (4.5-5.90); Red Cell Distribution Width 14.7 % (11.8-14.3); White Blood Cell 5.6 10^3/uL (4.4-10.8)
[2020-07-29 04:46] LABS: Albumin 1.9 g/dL (3.4-5.0); Calcium 7.4 mg/dL (8.5-10.1); Potassium 3.9 mmol/L (3.5-5.1)
[2020-07-29 04:50] LABS: BUN/Creatinine Ratio 25.4; Bilirubin, Total 0.6 mg/dL (0.2-1.0); Phosphorus 2.7 mg/dL (2.5-4.90); Total Protein 5.5 g/dL (6.4-8.2)
[2020-07-29] MEDS: InsuLIN REG 1unit/0.01ml Soln (100units/ml) SC SCH ×5 (06:00→23:53)
[2020-07-29] MEDS: ACCU-CHEK COMFORT CURVE STRIP VI SCH ×5 (06:00→23:52)
[2020-07-29] MEDS: IPRATROPIUM BROM 0.5 MG/2.5ML INH SOL NEB SCH ×3 (07:27→22:44)
[2020-07-29] MEDS: BUDESONIDE (INHALATION) 0.5 MG/2 ML NEB NEB SCH ×2 (07:28→22:44)
[2020-07-29] MEDS: ALBUTEROL SULF 2.5 MG/0.5ML(0.5%) NEB SOLN NEB SCH ×3 (07:28→22:44)
[2020-07-29] MEDS ORDERED: MEROPENEM 500MG IVPB 50 ML IV ONE (10:30)
[2020-07-29] MEDS: PANTOPRAZOLE 40 MG/10 ML VIAL INJ IV SCH (11:04)
[2020-07-29] MEDS: ASCORBIC ACID 1,000 MG TAB PO SCH (11:05)
[2020-07-29] MEDS: ZINC SULFATE 220mg CAP or TAB PO SCH (11:05)
[2020-07-29] MEDS: CHOLECALCIFEROL (VITD3) 2,000 UNIT CAP/TAB PO SCH (11:06)
[2020-07-29] MEDS: fentaNYL Drip 2500mCg/250mlNS 250 ML IV SCH (12:05)
[2020-07-29] MEDS: NOREPINEPHRINE 8 MG/250ML KIT 250 ML IV SCH (16:00)
[2020-07-29] MEDS: MEROPENEM 1GM IVPB 100 ML IV SCH (18:36)
[2020-07-29] MEDS ORDERED: TPN PER PHARMACY IV NR ×10 (20:00)
[2020-07-29] MEDS ORDERED: LINEZOLID 600MG TABLET PO SCH (22:00)
[2020-07-29] MEDS: LINEZOLID 600MG/300ML 300 ML IV SCH (22:00)
[2020-07-30] VITALS (89 sets, daily range): BP systolic 46–153; BP diastolic 15–94
[2020-07-30] MEDS: MEROPENEM 1GM IVPB 100 ML IV SCH ×3 (03:00→18:51)
[2020-07-30 04:53] LABS: Hematocrit 34.8 % (41.0-53.0); Hemoglobin 12.2 g/dL (13.5-17.5); Mean Corpuscular Hgb Conc. 34.9 g/dL (32.0-36.0); Mean Corpuscular Volume 88.8 fL (80.0-100.0); Red Blood Cells 3.92 10^6/uL (4.5-5.90); Red Cell Distribution Width 15.3 % (11.8-14.3); White Blood Cell 4.9 10^3/uL (4.4-10.8)
[2020-07-30 05:09] LABS: Albumin 1.7 g/dL (3.4-5.0); BUN/Creatinine Ratio 23.4; Bilirubin, Total 0.6 mg/dL (0.2-1.0); Calcium 7.5 mg/dL (8.5-10.1); Phosphorus 2.4 mg/dL (2.5-4.90); Pre Albumin 13.5 mg/dL (20.0-40.0); Total Protein 5.6 g/dL (6.4-8.2)
[2020-07-30 05:50] LABS: Basophils % (manual) 0 (0.0-2.0); Metamyelocytes % 0
[2020-07-30 05:51] LABS: Blast Cells 0; Myelocytes % 0; Promyelocytes % 0; Reactive Lymphocytes 0
[2020-07-30] MEDS: ACCU-CHEK COMFORT CURVE STRIP VI SCH ×3 (06:00→17:55)
[2020-07-30] MEDS: InsuLIN REG 1unit/0.01ml Soln (100units/ml) SC SCH ×3 (06:00→17:55)
[2020-07-30 06:21] LABS: Band Neutrophils % (manual) 37; Eosinophils % (manual) 1 (0-7); Lymphocytes % (manual) 14 (10.0-50.0); Monocytes % (manual) 23 (0-12)
[2020-07-30] MEDS: ALBUTEROL SULF 2.5 MG/0.5ML(0.5%) NEB SOLN NEB SCH ×3 (06:40→19:27)
[2020-07-30] MEDS: IPRATROPIUM BROM 0.5 MG/2.5ML INH SOL NEB SCH ×3 (06:40→19:27)
[2020-07-30] MEDS: DOPamine 1600MCG/ML D5W 250 ML IV SCH ×4 (07:18→23:00)
[2020-07-30] MEDS: BUDESONIDE (INHALATION) 0.5 MG/2 ML NEB NEB SCH ×2 (10:00→19:27)
[2020-07-30] MEDS: ZINC SULFATE 220mg CAP or TAB PO SCH (10:20)
[2020-07-30] MEDS: PANTOPRAZOLE 40 MG/10 ML VIAL INJ IV SCH (10:20)
[2020-07-30] MEDS: CHOLECALCIFEROL (VITD3) 2,000 UNIT CAP/TAB PO SCH (10:20)
[2020-07-30] MEDS: ASCORBIC ACID 1,000 MG TAB PO SCH (10:20)
[2020-07-30] MEDS: fentaNYL Drip 2500mCg/250mlNS 250 ML IV SCH (11:30)
[2020-07-30 11:43] LABS: Urine Bacteria NONE SEEN /hpf (None Seen); Urine Blood TRACE /uL (Negative); Urine Hyaline Cast FEW /lpf (0 - 2); Urine Mucus FEW (None Seen); Urine Specific Gravity 1.022 (1.001-1.035); Urine WBC 3 /hpf (0 - 3)
[2020-07-30 12:15] LABS: INR 1.07 (0.9-1.15); Partial Thromboplastin Time 31.6 sec (23.0-31.2)
[2020-07-30] MEDS ORDERED: SODIUM PHOSP 40 MEQ in D5W 5% 250 ML IV ONE ×2 (12:30→16:15)
[2020-07-30] MEDS: LINEZOLID 600MG/300ML 300 ML IV SCH ×2 (14:10→22:00)
[2020-07-30] MEDS ORDERED: LIDOCAINE 1% (LOCAL ANESTH.) PF 5ml SDV ID ONE (15:15)
[2020-07-30] MEDS: NOREPINEPHRINE 8 MG/250ML KIT 250 ML IV SCH (16:00)
[2020-07-30] MEDS: MIDAZOLAM DRIP 50 mg/50mL 50 ML IV SCH ×2 (18:50→23:00)
[2020-07-30] MEDS ORDERED: TPN PER PHARMACY IV NR ×11 (20:00)
[2020-07-30] MEDS: SODIUM CHLOR 0.9% PF (SALINE LOCK) 10ML VIAL/SYR IV SCH (22:00)
[2020-07-31] VITALS (91 sets, daily range): BP systolic 66–144; BP diastolic 24–83
[2020-07-31] MEDS: ACETAMINOPHEN 500 MG TAB PO PRN
[2020-07-31] MEDS: DOPamine 1600MCG/ML D5W 250 ML IV SCH ×10 (00:30→23:48)
[2020-07-31] MEDS: MEROPENEM 1GM IVPB 100 ML IV SCH ×3 (03:26→18:46)
[2020-07-31] MEDS: MIDAZOLAM DRIP 50 mg/50mL 50 ML IV SCH ×5 (03:45→20:04)
[2020-07-31] MEDS: InsuLIN REG 1unit/0.01ml Soln (100units/ml) SC SCH ×4 (06:00→18:04)
[2020-07-31] MEDS: ACCU-CHEK COMFORT CURVE STRIP VI SCH ×4 (06:00→18:04)
[2020-07-31] MEDS: BUDESONIDE (INHALATION) 0.5 MG/2 ML NEB NEB SCH ×2 (06:55→22:42)
[2020-07-31] MEDS: ALBUTEROL SULF 2.5 MG/0.5ML(0.5%) NEB SOLN NEB SCH ×3 (06:55→22:41)
[2020-07-31] MEDS: IPRATROPIUM BROM 0.5 MG/2.5ML INH SOL NEB SCH ×3 (06:55→22:41)
[2020-07-31 09:49] LABS: Hemoglobin 9.5 g/dL (13.5-17.5); Mean Corpuscular Hemoglobin 30.7 pg (28.0-32.0); Mean Corpuscular Hgb Conc. 32.7 g/dL (32.0-36.0); Mean Corpuscular Volume 94.1 fL (80.0-100.0); Red Blood Cells 3.09 10^6/uL (4.5-5.90); Red Cell Distribution Width 15.4 % (11.8-14.3); White Blood Cell 3.2 10^3/uL (4.4-10.8)
[2020-07-31 09:58] LABS: Basophils % (manual) 0 (0.0-2.0); Blast Cells 0; Promyelocytes % 0; Reactive Lymphocytes 0
[2020-07-31 10:10] LABS: Albumin 1.2 g/dL (3.4-5.0); Calcium 6.1 mg/dL (8.5-10.1)
[2020-07-31] MEDS: ZINC SULFATE 220mg CAP or TAB PO SCH (10:10)
[2020-07-31 10:14] LABS: Bilirubin, Total 2.2 mg/dL (0.2-1.0); Phosphorus 2.2 mg/dL (2.5-4.90); Total Protein 4.4 g/dL (6.4-8.2)
[2020-07-31] MEDS: CHOLECALCIFEROL (VITD3) 2,000 UNIT CAP/TAB PO SCH (10:15)
[2020-07-31] MEDS: LINEZOLID 600MG/300ML 300 ML IV SCH ×2 (10:15→22:10)
[2020-07-31] MEDS: ASCORBIC ACID 1,000 MG TAB PO SCH (10:15)
[2020-07-31] MEDS: SODIUM CHLOR 0.9% PF (SALINE LOCK) 10ML VIAL/SYR IV SCH ×2 (10:20→22:09)
[2020-07-31] MEDS: PANTOPRAZOLE 40 MG/10 ML VIAL INJ IV SCH (10:20)
[2020-07-31] MEDS ORDERED: POTASSIUM CHL 20MEQ/100ML 100 ML IV SCH (11:00)
[2020-07-31] MEDS ORDERED: POTASSIUM PHOSPHATE 44 MEQ in D5W 5% 250 ML IV ONE (11:00)
[2020-07-31] MEDS: fentaNYL Drip 2500mCg/250mlNS 250 ML IV SCH (12:07)
[2020-07-31 12:12] LABS: Band Neutrophils % (manual) 22; Eosinophils % (manual) 16 (0-7); Lymphocytes % (manual) 16 (10.0-50.0); Metamyelocytes % 1; Monocytes % (manual) 20 (0-12); Myelocytes % 1
[2020-07-31 15:14] LABS: Chloride 102 mmol/L (98-107); Sodium 131 mmol/L (136-145)
[2020-07-31 15:15] LABS: Alkaline Phosphatase 161 U/L (45-117); Anion Gap 6 (5-15); BUN/Creatinine Ratio 26.2; Blood Urea Nitrogen 16 mg/dL (7-18); Carbon Dioxide 23 mmol/L (21-32); GFR African American 175 mL/min; GFR Non-African American 145 mL/min; Glucose 190 mg/dL (74-106)
[2020-07-31 15:21] LABS: Aspartate Aminotransferase 72 U/L (15-37)
[2020-07-31 15:22] LABS: Alanine Aminotransferase 126 U/L (16-61); Albumin 1.6 g/dL (3.4-5.0); Bilirubin, Total 0.7 mg/dL (0.2-1.0); Calcium 7.2 mg/dL (8.5-10.1); Total Protein 5.5 g/dL (6.4-8.2)
[2020-07-31] MEDS: NOREPINEPHRINE 8 MG/250ML KIT 250 ML IV SCH (16:00)
[2020-07-31] MEDS ORDERED: TPN PER PHARMACY IV NR ×10 (20:00)
[2020-08-01] VITALS (98 sets, daily range): BP systolic 53–140; BP diastolic 27–86
[2020-08-01] MEDS: MIDAZOLAM DRIP 50 mg/50mL 50 ML IV SCH ×2 (00:31→23:50)
[2020-08-01] MEDS: fentaNYL Drip 2500mCg/250mlNS 250 ML IV SCH (00:40)
[2020-08-01] MEDS: DOPamine 1600MCG/ML D5W 250 ML IV SCH ×6 (02:20→22:25)
[2020-08-01] MEDS: MEROPENEM 1GM IVPB 100 ML IV SCH ×3 (03:00→18:38)
[2020-08-01] MEDS: ACETAMINOPHEN 500 MG TAB PO PRN (03:29)
[2020-08-01 04:55] LABS: Hemoglobin 10.7 g/dL (13.5-17.5); Mean Corpuscular Hemoglobin 30.6 pg (28.0-32.0); Mean Corpuscular Hgb Conc. 34.4 g/dL (32.0-36.0); Mean Corpuscular Volume 89.1 fL (80.0-100.0); Red Blood Cells 3.48 10^6/uL (4.5-5.90); Red Cell Distribution Width 15.2 % (11.8-14.3); White Blood Cell 3.4 10^3/uL (4.4-10.8)
[2020-08-01 04:58] LABS: Basophils % (manual) 0 (0.0-2.0); Blast Cells 0; Myelocytes % 0; Promyelocytes % 0; Reactive Lymphocytes 0
[2020-08-01 05:36] LABS: Albumin 1.4 g/dL (3.4-5.0); BUN/Creatinine Ratio 34.1; Bilirubin, Total 0.4 mg/dL (0.2-1.0); Calcium 7.6 mg/dL (8.5-10.1); Magnesium 2.5 mg/dL (1.6-2.6); Phosphorus 2.8 mg/dL (2.5-4.90)
[2020-08-01] MEDS: InsuLIN REG 1unit/0.01ml Soln (100units/ml) SC SCH ×4 (06:00→17:25)
[2020-08-01] MEDS: ACCU-CHEK COMFORT CURVE STRIP VI SCH ×4 (06:00→17:22)
[2020-08-01 06:33] LABS: Band Neutrophils % (manual) 16; Eosinophils % (manual) 18 (0-7); Lymphocytes % (manual) 13 (10.0-50.0); Metamyelocytes % 7; Monocytes % (manual) 14 (0-12)
[2020-08-01] MEDS: BUDESONIDE (INHALATION) 0.5 MG/2 ML NEB NEB SCH ×2 (06:44→22:05)
[2020-08-01] MEDS: IPRATROPIUM BROM 0.5 MG/2.5ML INH SOL NEB SCH ×3 (06:44→22:05)
[2020-08-01] MEDS: ALBUTEROL SULF 2.5 MG/0.5ML(0.5%) NEB SOLN NEB SCH ×3 (06:44→22:05)
[2020-08-01] MEDS: PANTOPRAZOLE 40 MG/10 ML VIAL INJ IV SCH (10:21)
[2020-08-01] MEDS: ZINC SULFATE 220mg CAP or TAB PO SCH (10:22)
[2020-08-01] MEDS: LINEZOLID 600MG/300ML 300 ML IV SCH ×2 (10:22→22:00)
[2020-08-01] MEDS: SODIUM CHLOR 0.9% PF (SALINE LOCK) 10ML VIAL/SYR IV SCH ×2 (10:22→22:00)
[2020-08-01] MEDS: CHOLECALCIFEROL (VITD3) 2,000 UNIT CAP/TAB PO SCH (10:22)
[2020-08-01] MEDS: ASCORBIC ACID 1,000 MG TAB PO SCH (12:05)
[2020-08-01] MEDS: NOREPINEPHRINE 8 MG/250ML KIT 250 ML IV SCH (16:00)
[2020-08-01] MEDS ORDERED: TPN PER PHARMACY IV NR ×11 (20:00)
[2020-08-02] VITALS (98 sets, daily range): BP systolic 52–142; BP diastolic 16–90
[2020-08-02] MEDS: fentaNYL Drip 2500mCg/250mlNS 250 ML IV SCH ×2 (00:45→11:35)
[2020-08-02] MEDS: DOPamine 1600MCG/ML D5W 250 ML IV SCH ×6 (00:56→13:35)
[2020-08-02] MEDS: MEROPENEM 1GM IVPB 100 ML IV SCH ×3 (02:32→18:27)
[2020-08-02] MEDS: MIDAZOLAM DRIP 50 mg/50mL 50 ML IV SCH ×4 (04:12→22:06)
[2020-08-02] MEDS: InsuLIN REG 1unit/0.01ml Soln (100units/ml) SC SCH ×5 (06:00→23:57)
[2020-08-02] MEDS: ACCU-CHEK COMFORT CURVE STRIP VI SCH ×5 (06:00→23:57)
[2020-08-02] MEDS: ALBUTEROL SULF 2.5 MG/0.5ML(0.5%) NEB SOLN NEB SCH ×3 (07:10→19:46)
[2020-08-02] MEDS: BUDESONIDE (INHALATION) 0.5 MG/2 ML NEB NEB SCH ×2 (07:10→19:46)
[2020-08-02] MEDS: IPRATROPIUM BROM 0.5 MG/2.5ML INH SOL NEB SCH ×3 (07:10→19:47)
[2020-08-02 08:15] LABS: Alanine Aminotransferase 110 U/L (16-61)
[2020-08-02 08:17] LABS: Alkaline Phosphatase 138 U/L (45-117); Anion Gap 4 (5-15); Aspartate Aminotransferase 59 U/L (15-37); BUN/Creatinine Ratio 35.6; Blood Urea Nitrogen 16 mg/dL (7-18); Calcium 7.7 mg/dL (8.5-10.1); Carbon Dioxide 30 mmol/L (21-32); Chloride 101 mmol/L (98-107); GFR African American 249 mL/min; GFR Non-African American 206 mL/min; Glucose 142 mg/dL (74-106); Sodium 135 mmol/L (136-145)
[2020-08-02 08:18] LABS: Albumin 1.3 g/dL (3.4-5.0); Bilirubin, Total 0.3 mg/dL (0.2-1.0); Magnesium 2.4 mg/dL (1.6-2.6); Phosphorus 3.4 mg/dL (2.5-4.90)
[2020-08-02] MEDS: ASCORBIC ACID 1,000 MG TAB PO SCH (10:00)
[2020-08-02] MEDS: PANTOPRAZOLE 40 MG/10 ML VIAL INJ IV SCH (10:00)
[2020-08-02] MEDS: SODIUM CHLOR 0.9% PF (SALINE LOCK) 10ML VIAL/SYR IV SCH ×2 (10:00→22:00)
[2020-08-02] MEDS: ZINC SULFATE 220mg CAP or TAB PO SCH (10:00)
[2020-08-02] MEDS: CHOLECALCIFEROL (VITD3) 2,000 UNIT CAP/TAB PO SCH (10:00)
[2020-08-02] MEDS: LINEZOLID 600MG/300ML 300 ML IV SCH ×2 (10:00→22:00)
[2020-08-02 10:06] LABS: Hemoglobin 8.3 g/dL (13.5-17.5)
[2020-08-02 10:08] LABS: Hematocrit 27.5 % (41.0-53.0); Mean Corpuscular Hemoglobin 32.9 pg (28.0-32.0); Mean Corpuscular Hgb Conc. 30.1 g/dL (32.0-36.0); Red Blood Cells 2.53 10^6/uL (4.5-5.90); Red Cell Distribution Width 16.9 % (11.8-14.3)
[2020-08-02 10:16] LABS: Basophils % (manual) 0 (0.0-2.0); Blast Cells 0; Promyelocytes % 0; Reactive Lymphocytes 0
[2020-08-02 11:49] LABS: Band Neutrophils % (manual) 17; Eosinophils % (manual) 15 (0-7); Lymphocytes % (manual) 18 (10.0-50.0); Metamyelocytes % 9; Monocytes % (manual) 4 (0-12); Myelocytes % 4
[2020-08-02] MEDS: DOPamine 3200MCG/ML 250 ML IV SCH ×2 (15:46→20:20)
[2020-08-02] MEDS: NOREPINEPHRINE 8 MG/250ML KIT 250 ML IV SCH (16:00)
[2020-08-02] MEDS ORDERED: TPN PER PHARMACY IV NR ×10 (20:00)
[2020-08-03] VITALS (95 sets, daily range): BP systolic 79–149; BP diastolic 28–89
[2020-08-03] MEDS: DOPamine 3200MCG/ML 250 ML IV SCH ×3 (01:26→15:23)
[2020-08-03] MEDS: MEROPENEM 1GM IVPB 100 ML IV SCH ×3 (02:31→19:00)
[2020-08-03] MEDS: MIDAZOLAM DRIP 50 mg/50mL 50 ML IV SCH ×6 (02:49→23:53)
[2020-08-03 05:05] LABS: Hematocrit 30.1 % (41.0-53.0); Hemoglobin 10.1 g/dL (13.5-17.5); Mean Corpuscular Hemoglobin 30.3 pg (28.0-32.0); Mean Corpuscular Hgb Conc. 33.7 g/dL (32.0-36.0); Mean Corpuscular Volume 90.1 fL (80.0-100.0); Red Blood Cells 3.34 10^6/uL (4.5-5.90); Red Cell Distribution Width 15.3 % (11.8-14.3); White Blood Cell 6.7 10^3/uL (4.4-10.8)
[2020-08-03 05:25] LABS: Albumin 1.4 g/dL (3.4-5.0); Calcium 7.7 mg/dL (8.5-10.1); Magnesium 2.3 mg/dL (1.6-2.6)
[2020-08-03 05:27] LABS: Basophils % (manual) 0 (0.0-2.0); Blast Cells 0; Promyelocytes % 0; Reactive Lymphocytes 0
[2020-08-03 05:29] LABS: BUN/Creatinine Ratio 33.3; Bilirubin, Total 0.6 mg/dL (0.2-1.0); Phosphorus 4.2 mg/dL (2.5-4.90)
[2020-08-03] MEDS: InsuLIN REG 1unit/0.01ml Soln (100units/ml) SC SCH ×4 (06:00→23:45)
[2020-08-03] MEDS: ACCU-CHEK COMFORT CURVE STRIP VI SCH ×4 (06:00→23:45)
[2020-08-03 06:11] LABS: Eosinophils % (manual) 8 (0-7); Lymphocytes % (manual) 22 (10.0-50.0); Monocytes % (manual) 7 (0-12)
[2020-08-03 06:12] LABS: Band Neutrophils % (manual) 22; Metamyelocytes % 3; Myelocytes % 3
[2020-08-03] MEDS: IPRATROPIUM BROM 0.5 MG/2.5ML INH SOL NEB SCH ×2 (07:12→14:00)
[2020-08-03] MEDS: ALBUTEROL SULF 2.5 MG/0.5ML(0.5%) NEB SOLN NEB SCH ×2 (07:12→14:00)
[2020-08-03] MEDS: BUDESONIDE (INHALATION) 0.5 MG/2 ML NEB NEB SCH (07:12)
[2020-08-03] MEDS: NOREPINEPHRINE 8 MG/250ML KIT 250 ML IV SCH (09:02)
[2020-08-03] MEDS: SODIUM CHLOR 0.9% PF (SALINE LOCK) 10ML VIAL/SYR IV SCH ×2 (10:00→22:03)
[2020-08-03] MEDS: PANTOPRAZOLE 40 MG/10 ML VIAL INJ IV SCH (10:15)
[2020-08-03] MEDS: ASCORBIC ACID 1,000 MG TAB PO SCH (10:15)
[2020-08-03] MEDS: CHOLECALCIFEROL (VITD3) 2,000 UNIT CAP/TAB PO SCH (10:15)
[2020-08-03] MEDS: LINEZOLID 600MG/300ML 300 ML IV SCH ×2 (10:15→22:03)
[2020-08-03] MEDS: ZINC SULFATE 220mg CAP or TAB PO SCH (10:15)
[2020-08-03] MEDS: fentaNYL Drip 2500mCg/250mlNS 250 ML IV SCH ×3 (11:38→23:52)
[2020-08-03] MEDS ORDERED: TPN PER PHARMACY IV NR ×12 (20:00)
[2020-08-03] MEDS: ACETAMINOPHEN 500 MG TAB PO PRN (23:52)
[2020-08-04] VITALS (97 sets, daily range): BP systolic 56–156; BP diastolic 27–95
[2020-08-04] MEDS: ALBUTEROL SULF 2.5 MG/0.5ML(0.5%) NEB SOLN NEB SCH ×4 (00:10→20:29)
[2020-08-04] MEDS: IPRATROPIUM BROM 0.5 MG/2.5ML INH SOL NEB SCH ×4 (00:10→20:29)
[2020-08-04] MEDS: BUDESONIDE (INHALATION) 0.5 MG/2 ML NEB NEB SCH ×3 (00:10→20:29)
[2020-08-04] MEDS: MEROPENEM 1GM IVPB 100 ML IV SCH ×3 (03:00→18:20)
[2020-08-04 05:25] LABS: Basophils # (auto) 0.1 10 ^3/uL (0-0.2); Basophils % (auto) 0.6 % (0.0-2.0); Eosinophils % (auto) 7.4 % (0.0-7.0); Hematocrit 29.3 % (41.0-53.0); Hemoglobin 9.8 g/dL (13.5-17.5); Lymphocytes # (auto) 0.6 10 ^3/uL (0.4-5.4); Lymphocytes % (auto) 4.7 % (10.0-50.0); Mean Corpuscular Hgb Conc. 33.5 g/dL (32.0-36.0); Mean Corpuscular Volume 89.7 fL (80.0-100.0); Monocytes # (auto) 0.5 10 ^3/uL (0-1.3); Monocytes % (auto) 4.1 % (0.0-12.0); Neutrophils # (auto) 10.8 10 ^3/uL (1.6-8.6); Neutrophils % (auto) 83.2 % (37.0-80.0); Red Blood Cells 3.26 10^6/uL (4.5-5.90); Red Cell Distribution Width 15.3 % (11.8-14.3)
[2020-08-04 05:41] LABS: Potassium 4.3 mmol/L (3.5-5.1)
[2020-08-04 05:50] LABS: Albumin 1.4 g/dL (3.4-5.0); BUN/Creatinine Ratio 47.2; Bilirubin, Total 0.3 mg/dL (0.2-1.0); Calcium 7.8 mg/dL (8.5-10.1); Magnesium 2.4 mg/dL (1.6-2.6); Phosphorus 4.3 mg/dL (2.5-4.90)
[2020-08-04] MEDS: InsuLIN REG 1unit/0.01ml Soln (100units/ml) SC SCH ×3 (06:00→18:00)
[2020-08-04] MEDS: ACCU-CHEK COMFORT CURVE STRIP VI SCH ×3 (06:33→18:17)
[2020-08-04] MEDS: PANTOPRAZOLE 40 MG/10 ML VIAL INJ IV SCH (10:16)
[2020-08-04] MEDS: SODIUM CHLOR 0.9% PF (SALINE LOCK) 10ML VIAL/SYR IV SCH ×2 (10:16→21:32)
[2020-08-04] MEDS: CHOLECALCIFEROL (VITD3) 2,000 UNIT CAP/TAB PO SCH (10:17)
[2020-08-04] MEDS: ASCORBIC ACID 1,000 MG TAB PO SCH (10:17)
[2020-08-04] MEDS: ZINC SULFATE 220mg CAP or TAB PO SCH (10:17)
[2020-08-04] MEDS: LINEZOLID 600MG/300ML 300 ML IV SCH ×2 (10:23→21:32)
[2020-08-04] MEDS ORDERED: METOCLOPRAMIDE HCL 5MG/ml INJ 2ml VIAL IV ONE (11:30)
[2020-08-04] MEDS ORDERED: FLUCONAZOLE 200MG/100ML 100 ML IV ONE (11:30)
[2020-08-04] MEDS: MIDAZOLAM DRIP 50 mg/50mL 50 ML IV SCH ×2 (12:09→22:18)
[2020-08-04] MEDS: METOCLOPRAMIDE HCL 5MG/ml INJ 2ml VIAL IV SCH ×2 (12:09→21:32)
[2020-08-04] MEDS ORDERED: TPN PER PHARMACY IV NR ×10 (20:00)
[2020-08-04] MEDS: fentaNYL Drip 2500mCg/250mlNS 250 ML IV SCH (22:18)
[2020-08-05] VITALS (98 sets, daily range): BP systolic 73–160; BP diastolic 34–84
[2020-08-05] MEDS: ACCU-CHEK COMFORT CURVE STRIP VI SCH ×5 (00:21→23:48)
[2020-08-05] MEDS: DOPamine 3200MCG/ML 250 ML IV SCH ×2 (00:22→19:45)
[2020-08-05] MEDS: MEROPENEM 1GM IVPB 100 ML IV SCH ×3 (03:00→19:29)
[2020-08-05] MEDS: MIDAZOLAM DRIP 50 mg/50mL 50 ML IV SCH ×3 (04:09→22:35)
[2020-08-05 04:41] LABS: Potassium 4.3 mmol/L (3.5-5.1)
[2020-08-05 04:48] LABS: Albumin 1.5 g/dL (3.4-5.0); BUN/Creatinine Ratio 35.7; Bilirubin, Total 0.4 mg/dL (0.2-1.0); Calcium 7.8 mg/dL (8.5-10.1); Magnesium 2.3 mg/dL (1.6-2.6); Phosphorus 3.9 mg/dL (2.5-4.90); Total Protein 5.1 g/dL (6.4-8.2)
[2020-08-05] MEDS: InsuLIN REG 1unit/0.01ml Soln (100units/ml) SC SCH ×5 (05:55→23:48)
[2020-08-05] MEDS: METOCLOPRAMIDE HCL 5MG/ml INJ 2ml VIAL IV SCH ×3 (05:55→22:26)
[2020-08-05] MEDS: IPRATROPIUM BROM 0.5 MG/2.5ML INH SOL NEB SCH ×2 (08:32→14:00)
[2020-08-05] MEDS: ALBUTEROL SULF 2.5 MG/0.5ML(0.5%) NEB SOLN NEB SCH ×3 (08:32→22:09)
[2020-08-05] MEDS ORDERED: FLUCONAZOLE 200MG/100ML 100 ML IV SCH (09:00)
[2020-08-05] MEDS: LINEZOLID 600MG/300ML 300 ML IV SCH ×2 (10:00→22:26)
[2020-08-05] MEDS: BUDESONIDE (INHALATION) 0.5 MG/2 ML NEB NEB SCH ×2 (10:12→22:09)
[2020-08-05] MEDS ORDERED: Jevity 1.2 Cal/Fiber 1 Liter GT SCH (10:15)
[2020-08-05] MEDS: ASCORBIC ACID 1,000 MG TAB PO SCH (12:00)
[2020-08-05] MEDS: CHOLECALCIFEROL (VITD3) 2,000 UNIT CAP/TAB PO SCH (12:00)
[2020-08-05] MEDS: PANTOPRAZOLE 40 MG/10 ML VIAL INJ IV SCH (12:00)
[2020-08-05] MEDS: SODIUM CHLOR 0.9% PF (SALINE LOCK) 10ML VIAL/SYR IV SCH ×2 (12:00→22:26)
[2020-08-05] MEDS: ZINC SULFATE 220mg CAP or TAB PO SCH (12:00)
[2020-08-05] MEDS: fentaNYL Drip 2500mCg/250mlNS 250 ML IV SCH (23:50)
[2020-08-06] VITALS (94 sets, daily range): BP systolic 82–159; BP diastolic 43–94
[2020-08-06] MEDS: MEROPENEM 1GM IVPB 100 ML IV SCH (03:00)
[2020-08-06 04:56] LABS: Hematocrit 31.1 % (41.0-53.0); Hemoglobin 10.5 g/dL (13.5-17.5); Mean Corpuscular Hemoglobin 30.3 pg (28.0-32.0); Mean Corpuscular Hgb Conc. 33.8 g/dL (32.0-36.0); Mean Corpuscular Volume 89.6 fL (80.0-100.0); Red Blood Cells 3.47 10^6/uL (4.5-5.90); Red Cell Distribution Width 15.3 % (11.8-14.3); White Blood Cell 11.5 10^3/uL (4.4-10.8)
[2020-08-06 05:13] LABS: Basophils % (manual) 0 (0.0-2.0); Blast Cells 0; Myelocytes % 0; Promyelocytes % 0; Reactive Lymphocytes 0
[2020-08-06 05:17] LABS: Calcium 8.5 mg/dL (8.5-10.1); Potassium 4.9 mmol/L (3.5-5.1)
[2020-08-06 05:19] LABS: BUN/Creatinine Ratio 30.8
[2020-08-06] MEDS: METOCLOPRAMIDE HCL 5MG/ml INJ 2ml VIAL IV SCH ×3 (05:58→22:00)
[2020-08-06] MEDS: ACCU-CHEK COMFORT CURVE STRIP VI SCH ×3 (05:58→18:00)
[2020-08-06] MEDS: InsuLIN REG 1unit/0.01ml Soln (100units/ml) SC SCH ×3 (06:03→18:00)
[2020-08-06] MEDS: IPRATROPIUM BROM 0.5 MG/2.5ML INH SOL NEB SCH ×3 (06:30→19:22)
[2020-08-06] MEDS: ALBUTEROL SULF 2.5 MG/0.5ML(0.5%) NEB SOLN NEB SCH ×3 (06:30→19:22)
[2020-08-06] MEDS: BUDESONIDE (INHALATION) 0.5 MG/2 ML NEB NEB SCH ×2 (06:30→19:22)
[2020-08-06 06:49] LABS: Band Neutrophils % (manual) 12; Eosinophils % (manual) 1 (0-7); Lymphocytes % (manual) 6 (10.0-50.0); Metamyelocytes % 2; Monocytes % (manual) 4 (0-12)
[2020-08-06] MEDS: SODIUM CHLOR 0.9% PF (SALINE LOCK) 10ML VIAL/SYR IV SCH ×2 (10:00→22:00)
[2020-08-06] MEDS: ZINC SULFATE 220mg CAP or TAB PO SCH (10:30)
[2020-08-06] MEDS: ASCORBIC ACID 1,000 MG TAB PO SCH (10:30)
[2020-08-06] MEDS: PANTOPRAZOLE 40 MG/10 ML VIAL INJ IV SCH (10:30)
[2020-08-06] MEDS: CHOLECALCIFEROL (VITD3) 2,000 UNIT CAP/TAB PO SCH (10:30)
[2020-08-06] MEDS: DOPamine 3200MCG/ML 250 ML IV SCH (15:00)
[2020-08-06] MEDS: MIDAZOLAM DRIP 50 mg/50mL 50 ML IV SCH (23:33)
[2020-08-07] VITALS (96 sets, daily range): BP systolic 81–137; BP diastolic 39–85
[2020-08-07] MEDS: fentaNYL Drip 2500mCg/250mlNS 250 ML IV SCH ×2 (00:15→05:16)
[2020-08-07] MEDS ORDERED: DOPamine 1600MCG/ML D5W 250 ML IV ONE (01:43)
[2020-08-07] MEDS: DOPamine 3200MCG/ML 250 ML IV SCH (01:46)
[2020-08-07 04:55] LABS: Hematocrit 26.3 % (41.0-53.0); Hemoglobin 8.9 g/dL (13.5-17.5); Mean Corpuscular Hemoglobin 30.4 pg (28.0-32.0); Mean Corpuscular Hgb Conc. 33.9 g/dL (32.0-36.0); Mean Corpuscular Volume 89.8 fL (80.0-100.0); Red Blood Cells 2.92 10^6/uL (4.5-5.90); Red Cell Distribution Width 15.6 % (11.8-14.3); White Blood Cell 13.9 10^3/uL (4.4-10.8)
[2020-08-07 05:19] LABS: BUN/Creatinine Ratio 38.6; Calcium 8.2 mg/dL (8.5-10.1)
[2020-08-07 05:55] LABS: Basophils % (manual) 0 (0.0-2.0); Blast Cells 0; Eosinophils % (manual) 0 (0-7); Promyelocytes % 0; Reactive Lymphocytes 0
[2020-08-07] MEDS: ACCU-CHEK COMFORT CURVE STRIP VI SCH ×4 (06:00→18:00)
[2020-08-07] MEDS: METOCLOPRAMIDE HCL 5MG/ml INJ 2ml VIAL IV SCH ×3 (06:00→22:16)
[2020-08-07] MEDS: InsuLIN REG 1unit/0.01ml Soln (100units/ml) SC SCH ×4 (06:00→18:00)
[2020-08-07] MEDS: IPRATROPIUM BROM 0.5 MG/2.5ML INH SOL NEB SCH ×3 (06:50→21:37)
[2020-08-07] MEDS: BUDESONIDE (INHALATION) 0.5 MG/2 ML NEB NEB SCH ×2 (06:50→21:37)
[2020-08-07] MEDS: ALBUTEROL SULF 2.5 MG/0.5ML(0.5%) NEB SOLN NEB SCH ×3 (06:50→21:37)
[2020-08-07 07:41] LABS: Band Neutrophils % (manual) 14; Lymphocytes % (manual) 6 (10.0-50.0); Metamyelocytes % 6; Monocytes % (manual) 7 (0-12); Myelocytes % 2
[2020-08-07] MEDS: SODIUM CHLOR 0.9% PF (SALINE LOCK) 10ML VIAL/SYR IV SCH ×2 (10:15→22:16)
[2020-08-07] MEDS: ASCORBIC ACID 1,000 MG TAB PO SCH (10:15)
[2020-08-07] MEDS: PANTOPRAZOLE 40 MG/10 ML VIAL INJ IV SCH (10:15)
[2020-08-07] MEDS: ZINC SULFATE 220mg CAP or TAB PO SCH (10:15)
[2020-08-07] MEDS: CHOLECALCIFEROL (VITD3) 2,000 UNIT CAP/TAB PO SCH (10:15)
[2020-08-08] VITALS (96 sets, daily range): BP systolic 87–136; BP diastolic 46–74
[2020-08-08 04:21] LABS: Hematocrit 25.4 % (41.0-53.0); Hemoglobin 8.5 g/dL (13.5-17.5); Mean Corpuscular Hemoglobin 30.7 pg (28.0-32.0); Mean Corpuscular Hgb Conc. 33.5 g/dL (32.0-36.0); Mean Corpuscular Volume 91.6 fL (80.0-100.0); Red Blood Cells 2.78 10^6/uL (4.5-5.90); Red Cell Distribution Width 15.6 % (11.8-14.3); White Blood Cell 10.1 10^3/uL (4.4-10.8)
[2020-08-08 04:34] LABS: Potassium 3.8 mmol/L (3.5-5.1)
[2020-08-08 04:36] LABS: Basophils % (manual) 0 (0.0-2.0); Blast Cells 0; Eosinophils % (manual) 0 (0-7); Promyelocytes % 0; Reactive Lymphocytes 0
[2020-08-08] MEDS ORDERED: DOPamine 1600MCG/ML D5W 250 ML IV ONE (05:28)
[2020-08-08] MEDS: IPRATROPIUM BROM 0.5 MG/2.5ML INH SOL NEB SCH ×3 (06:00→19:54)
[2020-08-08] MEDS: ALBUTEROL SULF 2.5 MG/0.5ML(0.5%) NEB SOLN NEB SCH ×3 (06:00→19:55)
[2020-08-08] MEDS: ACCU-CHEK COMFORT CURVE STRIP VI SCH ×4 (06:00→17:23)
[2020-08-08] MEDS: InsuLIN REG 1unit/0.01ml Soln (100units/ml) SC SCH ×4 (06:00→17:23)
[2020-08-08 06:41] LABS: Band Neutrophils % (manual) 4; Lymphocytes % (manual) 11 (10.0-50.0); Metamyelocytes % 3; Monocytes % (manual) 2 (0-12); Myelocytes % 1
[2020-08-08] MEDS: METOCLOPRAMIDE HCL 5MG/ml INJ 2ml VIAL IV SCH ×3 (06:41→21:36)
[2020-08-08] MEDS: CHOLECALCIFEROL (VITD3) 2,000 UNIT CAP/TAB PO SCH (10:00)
[2020-08-08] MEDS: ASCORBIC ACID 1,000 MG TAB PO SCH (10:00)
[2020-08-08] MEDS: PANTOPRAZOLE 40 MG/10 ML VIAL INJ IV SCH (10:00)
[2020-08-08] MEDS: BUDESONIDE (INHALATION) 0.5 MG/2 ML NEB NEB SCH ×2 (10:00→19:54)
[2020-08-08] MEDS: SODIUM CHLOR 0.9% PF (SALINE LOCK) 10ML VIAL/SYR IV SCH ×2 (10:00→22:00)
[2020-08-08] MEDS: ZINC SULFATE 220mg CAP or TAB PO SCH (10:00)
[2020-08-08] MEDS: DOPamine 3200MCG/ML 250 ML IV SCH (11:30)
[2020-08-08] MEDS: MIDAZOLAM DRIP 50 mg/50mL 50 ML IV SCH ×2 (12:00→20:30)
[2020-08-09] VITALS (88 sets, daily range): BP systolic 10–125; BP diastolic 52–75
[2020-08-09] MEDS: fentaNYL Drip 2500mCg/250mlNS 250 ML IV SCH ×2 (00:15→18:59)
[2020-08-09] MEDS: ACCU-CHEK COMFORT CURVE STRIP VI SCH ×4 (00:20→17:17)
[2020-08-09] MEDS: DOPamine 3200MCG/ML 250 ML IV SCH ×2 (00:45→20:00)
[2020-08-09 04:31] LABS: Red Cell Distribution Width 16.1 % (11.8-14.3)
[2020-08-09 04:34] LABS: Hematocrit 24.5 % (41.0-53.0); Hemoglobin 8.3 g/dL (13.5-17.5); Mean Corpuscular Hemoglobin 30.8 pg (28.0-32.0); Mean Corpuscular Hgb Conc. 33.7 g/dL (32.0-36.0); Mean Corpuscular Volume 91.3 fL (80.0-100.0); Red Blood Cells 2.68 10^6/uL (4.5-5.90); White Blood Cell 7.9 10^3/uL (4.4-10.8)
[2020-08-09 05:04] LABS: Potassium 3.6 mmol/L (3.5-5.1)
[2020-08-09 05:09] LABS: BUN/Creatinine Ratio 39.1; Calcium 7.6 mg/dL (8.5-10.1)
[2020-08-09] MEDS: InsuLIN REG 1unit/0.01ml Soln (100units/ml) SC SCH ×4 (05:44→17:17)
[2020-08-09] MEDS: ALBUTEROL SULF 2.5 MG/0.5ML(0.5%) NEB SOLN NEB SCH ×3 (06:00→18:51)
[2020-08-09] MEDS: IPRATROPIUM BROM 0.5 MG/2.5ML INH SOL NEB SCH ×3 (06:00→18:51)
[2020-08-09 06:03] LABS: Basophils % (manual) 0 (0.0-2.0); Blast Cells 0; Metamyelocytes % 0; Promyelocytes % 0; Reactive Lymphocytes 0
[2020-08-09] MEDS: METOCLOPRAMIDE HCL 5MG/ml INJ 2ml VIAL IV SCH ×3 (06:17→20:41)
[2020-08-09 09:24] LABS: Band Neutrophils % (manual) 11; Eosinophils % (manual) 1 (0-7); Lymphocytes % (manual) 13 (10.0-50.0); Monocytes % (manual) 4 (0-12); Myelocytes % 1
[2020-08-09] MEDS: CHOLECALCIFEROL (VITD3) 2,000 UNIT CAP/TAB PO SCH (10:00)
[2020-08-09] MEDS: BUDESONIDE (INHALATION) 0.5 MG/2 ML NEB NEB SCH ×2 (10:00→18:51)
[2020-08-09] MEDS: PANTOPRAZOLE 40 MG/10 ML VIAL INJ IV SCH (10:01)
[2020-08-09] MEDS: ASCORBIC ACID 1,000 MG TAB PO SCH (10:01)
[2020-08-09] MEDS: ZINC SULFATE 220mg CAP or TAB PO SCH (10:01)
[2020-08-09] MEDS: SODIUM CHLOR 0.9% PF (SALINE LOCK) 10ML VIAL/SYR IV SCH ×2 (10:01→20:41)
[2020-08-09] MEDS: MIDAZOLAM DRIP 50 mg/50mL 50 ML IV SCH ×2 (11:33→16:10)
[2020-08-09] MEDS: D5W 5% 1,000 ML IV SCH (15:44)
[2020-08-10] VITALS (46 sets, daily range): BP systolic 95–139; BP diastolic 48–80
[2020-08-10] MEDS: ACCU-CHEK COMFORT CURVE STRIP VI SCH ×4 (01:16→18:00)
[2020-08-10] MEDS: D5W 5% 1,000 ML IV SCH (03:00)
[2020-08-10] MEDS: ACETAMINOPHEN 500 MG TAB PO PRN (04:00)
[2020-08-10] MEDS: PROPOFOL 100 ML IV SCH (04:15)
[2020-08-10] MEDS: InsuLIN REG 1unit/0.01ml Soln (100units/ml) SC SCH ×4 (06:00→18:00)
[2020-08-10] MEDS: METOCLOPRAMIDE HCL 5MG/ml INJ 2ml VIAL IV SCH ×3 (06:17→22:19)
[2020-08-10 06:20] LABS: Red Cell Distribution Width 16.2 % (11.8-14.3)
[2020-08-10 06:22] LABS: Hematocrit 22.3 % (41.0-53.0); Hemoglobin 7.6 g/dL (13.5-17.5); Mean Corpuscular Hemoglobin 31.5 pg (28.0-32.0); Mean Corpuscular Volume 92.8 fL (80.0-100.0); White Blood Cell 6.2 10^3/uL (4.4-10.8)
[2020-08-10] MEDS: ALBUTEROL SULF 2.5 MG/0.5ML(0.5%) NEB SOLN NEB SCH ×3 (06:45→19:47)
[2020-08-10] MEDS: BUDESONIDE (INHALATION) 0.5 MG/2 ML NEB NEB SCH ×2 (06:45→19:47)
[2020-08-10] MEDS: IPRATROPIUM BROM 0.5 MG/2.5ML INH SOL NEB SCH ×3 (06:45→19:47)
[2020-08-10] MEDS: fentaNYL Drip 2500mCg/250mlNS 250 ML IV SCH (06:48)
[2020-08-10 06:58] LABS: Basophils % (manual) 0 (0.0-2.0); Blast Cells 0; Promyelocytes % 0; Reactive Lymphocytes 0
[2020-08-10 08:34] LABS: Band Neutrophils % (manual) 3; Eosinophils % (manual) 1 (0-7); Lymphocytes % (manual) 10 (10.0-50.0); Metamyelocytes % 2; Monocytes % (manual) 9 (0-12); Myelocytes % 2
[2020-08-10 09:06] LABS: BUN/Creatinine Ratio 21.2; Calcium 7.1 mg/dL (8.5-10.1); Potassium 3.3 mmol/L (3.5-5.1)
[2020-08-10] MEDS: SODIUM CHLOR 0.9% PF (SALINE LOCK) 10ML VIAL/SYR IV SCH ×2 (10:18→22:20)
[2020-08-10] MEDS: PANTOPRAZOLE 40 MG/10 ML VIAL INJ IV SCH (10:18)
[2020-08-10] MEDS: MIDAZOLAM DRIP 50 mg/50mL 50 ML IV SCH ×3 (10:29→20:26)
[2020-08-10] MEDS: ASCORBIC ACID 1,000 MG TAB PO SCH (10:45)
[2020-08-10] MEDS: CHOLECALCIFEROL (VITD3) 2,000 UNIT CAP/TAB PO SCH (10:45)
[2020-08-10] MEDS: ZINC SULFATE 220mg CAP or TAB PO SCH (10:45)
[2020-08-10] MEDS: POTASSIUM CHL 20MEQ/100ML 100 ML IV SCH ×2 (12:00→13:00)
[2020-08-10] MEDS ORDERED: POTASSIUM CHL 20MEQ/100ML 100 ML IV ONE (13:15)
[2020-08-10] MEDS: DOPamine 3200MCG/ML 250 ML IV SCH (15:15)
[2020-08-10] MEDS ORDERED: CLINIMIX PER PHARMACY 0 ML IV SCH (17:15)
[2020-08-10] MEDS: AMINO ACID INFUSION IN D10W 1,000 ML IV NR (20:27)
[2020-08-11] VITALS (99 sets, daily range): BP systolic 98–130; BP diastolic 52–74
[2020-08-11 05:26] LABS: Albumin 1.7 g/dL (3.4-5.0); Calcium 7.9 mg/dL (8.5-10.1); Magnesium 1.8 mg/dL (1.6-2.6); Potassium 3.7 mmol/L (3.5-5.1)
[2020-08-11 05:31] LABS: BUN/Creatinine Ratio 19.5; Bilirubin, Total 0.3 mg/dL (0.2-1.0); Phosphorus 3.7 mg/dL (2.5-4.90); Pre Albumin 12.8 mg/dL (20.0-40.0); Total Protein 4.9 g/dL (6.4-8.2)
[2020-08-11 05:50] LABS: Hemoglobin 8.4 g/dL (13.5-17.5)
[2020-08-11 05:52] LABS: Hematocrit 24.3 % (41.0-53.0); Mean Corpuscular Hemoglobin 31.2 pg (28.0-32.0); Mean Corpuscular Hgb Conc. 34.6 g/dL (32.0-36.0); Mean Corpuscular Volume 90.1 fL (80.0-100.0); Red Cell Distribution Width 16.1 % (11.8-14.3); White Blood Cell 5.6 10^3/uL (4.4-10.8)
[2020-08-11] MEDS: InsuLIN REG 1unit/0.01ml Soln (100units/ml) SC SCH ×5 (06:00→23:28)
[2020-08-11] MEDS: METOCLOPRAMIDE HCL 5MG/ml INJ 2ml VIAL IV SCH ×3 (06:21→22:00)
[2020-08-11] MEDS: ACCU-CHEK COMFORT CURVE STRIP VI SCH ×5 (06:21→23:28)
[2020-08-11 06:35] LABS: Basophils % (manual) 0 (0.0-2.0); Blast Cells 0; Promyelocytes % 0; Reactive Lymphocytes 0
[2020-08-11] MEDS: ALBUTEROL SULF 2.5 MG/0.5ML(0.5%) NEB SOLN NEB SCH ×3 (06:56→21:58)
[2020-08-11] MEDS: IPRATROPIUM BROM 0.5 MG/2.5ML INH SOL NEB SCH ×3 (06:56→21:58)
[2020-08-11] MEDS: BUDESONIDE (INHALATION) 0.5 MG/2 ML NEB NEB SCH ×2 (06:57→21:58)
[2020-08-11] MEDS: PROPOFOL 100 ML IV SCH ×4 (08:00→22:57)
[2020-08-11] MEDS: MIDAZOLAM DRIP 50 mg/50mL 50 ML IV SCH ×4 (09:20→22:58)
[2020-08-11] MEDS: ASCORBIC ACID 1,000 MG TAB PO SCH (10:00)
[2020-08-11 10:12] LABS: Band Neutrophils % (manual) 1; Eosinophils % (manual) 3 (0-7); Lymphocytes % (manual) 13 (10.0-50.0); Metamyelocytes % 2; Monocytes % (manual) 7 (0-12); Myelocytes % 1
[2020-08-11] MEDS: DOPamine 3200MCG/ML 250 ML IV SCH (10:30)
[2020-08-11] MEDS ORDERED: MEROPENEM 1GM IVPB 0 ML IV ONE (10:36)
[2020-08-11] MEDS ORDERED: FLUCONAZOLE 200 MG/100 ML IV ONE (10:36)
[2020-08-11] MEDS: ZINC SULFATE 220mg CAP or TAB PO SCH (11:06)
[2020-08-11] MEDS: SODIUM CHLOR 0.9% PF (SALINE LOCK) 10ML VIAL/SYR IV SCH ×2 (11:06→22:24)
[2020-08-11] MEDS: CHOLECALCIFEROL (VITD3) 2,000 UNIT CAP/TAB PO SCH (11:06)
[2020-08-11] MEDS: PANTOPRAZOLE 40 MG/10 ML VIAL INJ IV SCH (11:06)
[2020-08-11] MEDS ORDERED: CLINIMIX PER PHARMACY IV NR (20:00)
[2020-08-11] MEDS ORDERED: AMINO ACID INFUSION IN D10W 1,000 ML IV NR ×2 (20:00→21:00)
[2020-08-11] MEDS: fentaNYL Drip 2500mCg/250mlNS 250 ML IV SCH (20:12)
[2020-08-11] MEDS: AMINO ACID INFUSION IN D10W 1,000 ML IV NR ×2 (20:12→21:16)
[2020-08-12] VITALS (99 sets, daily range): BP systolic 96–118; BP diastolic 54–73
[2020-08-12] MEDS: MIDAZOLAM DRIP 50 mg/50mL 50 ML IV SCH ×3 (02:47→21:21)
[2020-08-12] MEDS: PROPOFOL 100 ML IV SCH ×5 (02:52→21:21)
[2020-08-12] MEDS: DOPamine 3200MCG/ML 250 ML IV SCH (05:45)
[2020-08-12] MEDS: METOCLOPRAMIDE HCL 5MG/ml INJ 2ml VIAL IV SCH ×3 (06:00→22:00)
[2020-08-12] MEDS: InsuLIN REG 1unit/0.01ml Soln (100units/ml) SC SCH ×4 (06:00→23:59)
[2020-08-12] MEDS: ACCU-CHEK COMFORT CURVE STRIP VI SCH ×4 (06:00→23:59)
[2020-08-12 07:06] LABS: Albumin 1.7 g/dL (3.4-5.0); Calcium 7.7 mg/dL (8.5-10.1); Magnesium 1.7 mg/dL (1.6-2.6); Potassium 3.6 mmol/L (3.5-5.1)
[2020-08-12 07:13] LABS: Bilirubin, Total 0.4 mg/dL (0.2-1.0); Phosphorus 3.5 mg/dL (2.5-4.90); Total Protein 4.9 g/dL (6.4-8.2)
[2020-08-12] MEDS: IPRATROPIUM BROM 0.5 MG/2.5ML INH SOL NEB SCH ×3 (07:25→22:08)
[2020-08-12] MEDS: ALBUTEROL SULF 2.5 MG/0.5ML(0.5%) NEB SOLN NEB SCH ×3 (07:25→22:08)
[2020-08-12] MEDS: BUDESONIDE (INHALATION) 0.5 MG/2 ML NEB NEB SCH ×2 (07:25→22:08)
[2020-08-12] MEDS: PANTOPRAZOLE 40 MG/10 ML VIAL INJ IV SCH (09:27)
[2020-08-12] MEDS: ASCORBIC ACID 1,000 MG TAB PO SCH (09:28)
[2020-08-12] MEDS: ZINC SULFATE 220mg CAP or TAB PO SCH (09:28)
[2020-08-12] MEDS: CHOLECALCIFEROL (VITD3) 2,000 UNIT CAP/TAB PO SCH (09:28)
[2020-08-12] MEDS: SODIUM CHLOR 0.9% PF (SALINE LOCK) 10ML VIAL/SYR IV SCH ×2 (10:00→22:08)
[2020-08-12] MEDS: AMINO ACID INFUSION IN D10W 1,000 ML IV NR ×2 (19:54→20:05)
[2020-08-12] MEDS: fentaNYL Drip 2500mCg/250mlNS 250 ML IV SCH (22:10)
[2020-08-13] VITALS (97 sets, daily range): BP systolic 80–141; BP diastolic 40–84
[2020-08-13] MEDS: DOPamine 3200MCG/ML 250 ML IV SCH ×3 (01:00→19:52)
[2020-08-13] MEDS: PROPOFOL 100 ML IV SCH ×2 (01:51→03:41)
[2020-08-13] MEDS: MIDAZOLAM DRIP 50 mg/50mL 50 ML IV SCH (03:40)
[2020-08-13 04:15] LABS: Potassium 3.4 mmol/L (3.5-5.1)
[2020-08-13 04:19] LABS: Albumin 1.7 g/dL (3.4-5.0); Calcium 7.5 mg/dL (8.5-10.1); Magnesium 1.9 mg/dL (1.6-2.6)
[2020-08-13 04:28] LABS: Bilirubin, Total 0.3 mg/dL (0.2-1.0); Phosphorus 3.6 mg/dL (2.5-4.90); Total Protein 4.9 g/dL (6.4-8.2)
[2020-08-13 04:30] LABS: Basophils # (auto) 0 10 ^3/uL (0-0.2); Basophils % (auto) 0.7 % (0.0-2.0); Eosinophils # (auto) 0.2 10 ^3/uL (0-0.8); Eosinophils % (auto) 3.7 % (0.0-7.0); Hematocrit 24.2 % (41.0-53.0); Hemoglobin 8.6 g/dL (13.5-17.5); Lymphocytes # (auto) 0.7 10 ^3/uL (0.4-5.4); Lymphocytes % (auto) 14.5 % (10.0-50.0); Mean Corpuscular Hgb Conc. 35.6 g/dL (32.0-36.0); Mean Corpuscular Volume 89.9 fL (80.0-100.0); Monocytes # (auto) 0.4 10 ^3/uL (0-1.3); Monocytes % (auto) 7.8 % (0.0-12.0); Neutrophils # (auto) 3.4 10 ^3/uL (1.6-8.6); Neutrophils % (auto) 73.3 % (37.0-80.0); Nucleated Red Blood Cells % 0.2 %; Red Cell Distribution Width 16.2 % (11.8-14.3); White Blood Cell 4.7 10^3/uL (4.4-10.8)
[2020-08-13] MEDS: METOCLOPRAMIDE HCL 5MG/ml INJ 2ml VIAL IV SCH ×3 (06:00→22:00)
[2020-08-13] MEDS: InsuLIN REG 1unit/0.01ml Soln (100units/ml) SC SCH ×4 (06:00→23:13)
[2020-08-13] MEDS: ACCU-CHEK COMFORT CURVE STRIP VI SCH ×4 (06:05→23:13)
[2020-08-13] MEDS: ALBUTEROL SULF 2.5 MG/0.5ML(0.5%) NEB SOLN NEB SCH ×3 (07:39→21:59)
[2020-08-13] MEDS: IPRATROPIUM BROM 0.5 MG/2.5ML INH SOL NEB SCH ×3 (07:39→21:59)
[2020-08-13] MEDS: PANTOPRAZOLE 40 MG/10 ML VIAL INJ IV SCH (10:00)
[2020-08-13] MEDS: ASCORBIC ACID 1,000 MG TAB PO SCH (10:00)
[2020-08-13] MEDS: CHOLECALCIFEROL (VITD3) 2,000 UNIT CAP/TAB PO SCH (10:00)
[2020-08-13] MEDS: SODIUM CHLOR 0.9% PF (SALINE LOCK) 10ML VIAL/SYR IV SCH ×2 (10:00→22:00)
[2020-08-13] MEDS: ZINC SULFATE 220mg CAP or TAB PO SCH (10:00)
[2020-08-13] MEDS: POTASSIUM CHL 20MEQ/100ML 100 ML IV SCH ×2 (14:00→15:00)
[2020-08-13] MEDS ORDERED: DOPamine 1600MCG/ML D5W 0 ML IV ONE (19:44)
[2020-08-13] MEDS: fentaNYL Drip 2500mCg/250mlNS 250 ML IV SCH (19:52)
[2020-08-13] MEDS ORDERED: AMINO ACID INFUSION IN D10W 1,000 ML IV NR (20:00)
[2020-08-14] VITALS (95 sets, daily range): BP systolic 66–140; BP diastolic 32–88
[2020-08-14 04:50] LABS: Basophils # (auto) 0 10 ^3/uL (0-0.2); Basophils % (auto) 0.6 % (0.0-2.0); Eosinophils # (auto) 0.1 10 ^3/uL (0-0.8); Eosinophils % (auto) 1.3 % (0.0-7.0); Hemoglobin 9.6 g/dL (13.5-17.5); Lymphocytes # (auto) 0.9 10 ^3/uL (0.4-5.4); Mean Corpuscular Hemoglobin 30.9 pg (28.0-32.0); Mean Corpuscular Hgb Conc. 34.3 g/dL (32.0-36.0); Mean Corpuscular Volume 90.2 fL (80.0-100.0); Monocytes # (auto) 0.6 10 ^3/uL (0-1.3); Monocytes % (auto) 8.6 % (0.0-12.0); Neutrophils # (auto) 5.7 10 ^3/uL (1.6-8.6); Neutrophils % (auto) 77.5 % (37.0-80.0); Nucleated Red Blood Cells % 0.1 %; Red Blood Cells 3.11 10^6/uL (4.5-5.90); Red Cell Distribution Width 16.1 % (11.8-14.3); White Blood Cell 7.4 10^3/uL (4.4-10.8)
[2020-08-14 05:05] LABS: Albumin 1.9 g/dL (3.4-5.0); BUN/Creatinine Ratio 15.4; Calcium 8.1 mg/dL (8.5-10.1); Magnesium 1.7 mg/dL (1.6-2.6); Potassium 3.4 mmol/L (3.5-5.1)
[2020-08-14 05:08] LABS: Bilirubin, Total 0.4 mg/dL (0.2-1.0); Phosphorus 3.4 mg/dL (2.5-4.90); Total Protein 5.7 g/dL (6.4-8.2)
[2020-08-14] MEDS: METOCLOPRAMIDE HCL 5MG/ml INJ 2ml VIAL IV SCH ×3 (05:52→22:00)
[2020-08-14] MEDS: ACCU-CHEK COMFORT CURVE STRIP VI SCH ×4 (06:00→22:39)
[2020-08-14] MEDS: IPRATROPIUM BROM 0.5 MG/2.5ML INH SOL NEB SCH ×3 (06:00→18:24)
[2020-08-14] MEDS: InsuLIN REG 1unit/0.01ml Soln (100units/ml) SC SCH ×4 (06:00→22:38)
[2020-08-14] MEDS: ALBUTEROL SULF 2.5 MG/0.5ML(0.5%) NEB SOLN NEB SCH ×3 (06:00→18:24)
[2020-08-14] MEDS: CHOLECALCIFEROL (VITD3) 2,000 UNIT CAP/TAB PO SCH (09:40)
[2020-08-14] MEDS: ZINC SULFATE 220mg CAP or TAB PO SCH (09:40)
[2020-08-14] MEDS: SODIUM CHLOR 0.9% PF (SALINE LOCK) 10ML VIAL/SYR IV SCH ×2 (09:40→22:00)
[2020-08-14] MEDS: PANTOPRAZOLE 40 MG/10 ML VIAL INJ IV SCH (09:40)
[2020-08-14] MEDS: ASCORBIC ACID 1,000 MG TAB PO SCH (09:40)
[2020-08-14] MEDS: POTASSIUM CHL 20MEQ/100ML 100 ML IV SCH ×2 (10:31→11:46)
[2020-08-14] MEDS: PROPOFOL 100 ML IV SCH ×3 (10:37→19:45)
[2020-08-14] MEDS ORDERED: TPN PER PHARMACY 0 ML IV SCH (10:45)
[2020-08-14] MEDS: MIDAZOLAM DRIP 50 mg/50mL 50 ML IV SCH (12:00)
[2020-08-14] MEDS: AMINO ACID INFUSION IN D10W 1,000 ML IV NR (15:15)
[2020-08-14] MEDS: DOPamine 3200MCG/ML 250 ML IV SCH (19:45)
[2020-08-14] MEDS: fentaNYL Drip 2500mCg/250mlNS 250 ML IV SCH (19:45)
[2020-08-14] MEDS ORDERED: TPN PER PHARMACY IV NR ×6 (20:00)
[2020-08-14] MEDS ORDERED: AMINO ACID INFUSION IN D10W 1,000 ML IV NR (20:00)
[2020-08-15] VITALS (98 sets, daily range): BP systolic 65–126; BP diastolic 21–73
[2020-08-15] MEDS: PROPOFOL 100 ML IV SCH ×5 (02:00→22:55)
[2020-08-15 04:41] LABS: Potassium 4.3 mmol/L (3.5-5.1)
[2020-08-15 04:46] LABS: Albumin 1.6 g/dL (3.4-5.0); BUN/Creatinine Ratio 15.2; Bilirubin, Total 0.4 mg/dL (0.2-1.0); Calcium 7.7 mg/dL (8.5-10.1); Magnesium 1.7 mg/dL (1.6-2.6); Phosphorus 4.9 mg/dL (2.5-4.90); Total Protein 5.2 g/dL (6.4-8.2)
[2020-08-15] MEDS: ACCU-CHEK COMFORT CURVE STRIP VI SCH ×4 (05:57→22:55)
[2020-08-15] MEDS: InsuLIN REG 1unit/0.01ml Soln (100units/ml) SC SCH ×4 (05:57→22:54)
[2020-08-15] MEDS: METOCLOPRAMIDE HCL 5MG/ml INJ 2ml VIAL IV SCH ×3 (05:57→22:00)
[2020-08-15] MEDS: ALBUTEROL SULF 2.5 MG/0.5ML(0.5%) NEB SOLN NEB SCH ×3 (06:00→21:38)
[2020-08-15] MEDS: IPRATROPIUM BROM 0.5 MG/2.5ML INH SOL NEB SCH ×3 (06:00→21:38)
[2020-08-15] MEDS: fentaNYL Drip 2500mCg/250mlNS 250 ML IV SCH (09:38)
[2020-08-15] MEDS: CHOLECALCIFEROL (VITD3) 2,000 UNIT CAP/TAB PO SCH (09:39)
[2020-08-15] MEDS: PANTOPRAZOLE 40 MG/10 ML VIAL INJ IV SCH (09:39)
[2020-08-15] MEDS: ZINC SULFATE 220mg CAP or TAB PO SCH (09:39)
[2020-08-15] MEDS: ASCORBIC ACID 1,000 MG TAB PO SCH (09:39)
[2020-08-15] MEDS: SODIUM CHLOR 0.9% PF (SALINE LOCK) 10ML VIAL/SYR IV SCH ×2 (09:39→22:00)
[2020-08-15] MEDS: MIDAZOLAM DRIP 50 mg/50mL 50 ML IV SCH (12:00)
[2020-08-15] MEDS: NOREPINEPHRINE 8 MG/250ML KIT 250 ML IV SCH (15:24)
[2020-08-15] MEDS ORDERED: TPN PER PHARMACY IV NR ×8 (20:00)
[2020-08-16] VITALS (83 sets, daily range): BP systolic 88–154; BP diastolic 46–87
[2020-08-16] MEDS: fentaNYL Drip 2500mCg/250mlNS 250 ML IV SCH (01:30)
[2020-08-16] MEDS: DOPamine 3200MCG/ML 250 ML IV SCH (02:22)
[2020-08-16] MEDS: InsuLIN REG 1unit/0.01ml Soln (100units/ml) SC SCH ×4 (05:33→23:29)
[2020-08-16] MEDS: METOCLOPRAMIDE HCL 5MG/ml INJ 2ml VIAL IV SCH ×3 (05:33→22:00)
[2020-08-16] MEDS: ACCU-CHEK COMFORT CURVE STRIP VI SCH ×4 (05:34→23:29)
[2020-08-16 06:29] LABS: Albumin 2.4 g/dL (3.4-5.0); Magnesium 2.4 mg/dL (1.6-2.6); Potassium 4.2 mmol/L (3.5-5.1)
[2020-08-16 06:35] LABS: BUN/Creatinine Ratio 37.6; Phosphorus 3.4 mg/dL (2.5-4.90); Total Protein 6.5 g/dL (6.4-8.2)
[2020-08-16] MEDS: ALBUTEROL SULF 2.5 MG/0.5ML(0.5%) NEB SOLN NEB SCH ×3 (07:12→22:53)
[2020-08-16] MEDS: IPRATROPIUM BROM 0.5 MG/2.5ML INH SOL NEB SCH ×3 (07:12→22:53)
[2020-08-16] MEDS: PROPOFOL 100 ML IV SCH ×4 (07:15→21:44)
[2020-08-16] MEDS: NOREPINEPHRINE 8 MG/250ML KIT 250 ML IV SCH (07:15)
[2020-08-16] MEDS: PANTOPRAZOLE 40 MG/10 ML VIAL INJ IV SCH (09:30)
[2020-08-16] MEDS: ZINC SULFATE 220mg CAP or TAB PO SCH (09:30)
[2020-08-16] MEDS: CHOLECALCIFEROL (VITD3) 2,000 UNIT CAP/TAB PO SCH (09:30)
[2020-08-16] MEDS: ASCORBIC ACID 1,000 MG TAB PO SCH (09:30)
[2020-08-16] MEDS: ACETAMINOPHEN 500 MG TAB PO PRN (09:30)
[2020-08-16] MEDS: SODIUM CHLOR 0.9% PF (SALINE LOCK) 10ML VIAL/SYR IV SCH ×2 (09:30→22:00)
[2020-08-16] MEDS: MIDAZOLAM DRIP 50 mg/50mL 50 ML IV SCH (12:00)
[2020-08-16] MEDS ORDERED: MEROPENEM 1GM IVPB 100 ML IV ONE ×2 (12:30→12:32)
[2020-08-16] MEDS ORDERED: FLUCONAZOLE 200MG/100ML 100 ML IV ONE (14:15)
[2020-08-16] MEDS ORDERED: PIPERACILLIN-TAZOB 3.375GM 100 ML IV ONE (17:40)
[2020-08-16] MEDS: LINEZOLID 600MG/300ML 300 ML IV SCH (18:00)
[2020-08-16] MEDS ORDERED: TPN PER PHARMACY IV NR ×6 (20:00)
[2020-08-16] MEDS: MEROPENEM 1GM IVPB 100 ML IV SCH (22:00)
[2020-08-17] VITALS (84 sets, daily range): BP systolic 91–141; BP diastolic 52–87
[2020-08-17] MEDS: DOPamine 3200MCG/ML 250 ML IV SCH (01:15)
[2020-08-17] MEDS: PROPOFOL 100 ML IV SCH ×7 (01:47→21:25)
[2020-08-17 03:49] LABS: Basophils # (auto) 0.1 10 ^3/uL (0-0.2); Basophils % (auto) 1.2 % (0.0-2.0); Eosinophils # (auto) 0.2 10 ^3/uL (0-0.8); Eosinophils % (auto) 3.9 % (0.0-7.0); Lymphocytes # (auto) 0.9 10 ^3/uL (0.4-5.4); Monocytes # (auto) 0.6 10 ^3/uL (0-1.3); Neutrophils # (auto) 3.4 10 ^3/uL (1.6-8.6); Nucleated Red Blood Cells % 0.1 %
[2020-08-17 03:51] LABS: Hematocrit 23.1 % (41.0-53.0); Lymphocytes % (auto) 17.7 % (10.0-50.0); Mean Corpuscular Hemoglobin 31.2 pg (28.0-32.0); Mean Corpuscular Hgb Conc. 34.8 g/dL (32.0-36.0); Mean Corpuscular Volume 89.7 fL (80.0-100.0); Monocytes % (auto) 11.2 % (0.0-12.0); Red Blood Cells 2.58 10^6/uL (4.5-5.90); White Blood Cell 5.1 10^3/uL (4.4-10.8)
[2020-08-17 04:07] LABS: Albumin 1.6 g/dL (3.4-5.0); Calcium 7.5 mg/dL (8.5-10.1); Magnesium 2.1 mg/dL (1.6-2.6); Potassium 3.4 mmol/L (3.5-5.1)
[2020-08-17 04:10] LABS: Bilirubin, Total 0.3 mg/dL (0.2-1.0); Phosphorus 3.8 mg/dL (2.5-4.90); Total Protein 5.3 g/dL (6.4-8.2)
[2020-08-17] MEDS: fentaNYL Drip 2500mCg/250mlNS 250 ML IV SCH (04:51)
[2020-08-17] MEDS: METOCLOPRAMIDE HCL 5MG/ml INJ 2ml VIAL IV SCH ×2 (04:53→21:00)
[2020-08-17] MEDS: LINEZOLID 600MG/300ML 300 ML IV SCH ×2 (04:53→17:30)
[2020-08-17] MEDS: MEROPENEM 1GM IVPB 100 ML IV SCH ×4 (04:53→21:01)
[2020-08-17] MEDS: InsuLIN REG 1unit/0.01ml Soln (100units/ml) SC SCH ×3 (05:26→22:58)
[2020-08-17] MEDS: ACCU-CHEK COMFORT CURVE STRIP VI SCH ×4 (05:26→22:58)
[2020-08-17] MEDS: ALBUTEROL SULF 2.5 MG/0.5ML(0.5%) NEB SOLN NEB SCH ×3 (06:15→19:21)
[2020-08-17] MEDS: IPRATROPIUM BROM 0.5 MG/2.5ML INH SOL NEB SCH ×3 (06:16→19:21)
[2020-08-17] MEDS: PANTOPRAZOLE 40 MG/10 ML VIAL INJ IV SCH (10:00)
[2020-08-17] MEDS: ASCORBIC ACID 1,000 MG TAB PO SCH (10:00)
[2020-08-17] MEDS: ZINC SULFATE 220mg CAP or TAB PO SCH (10:10)
[2020-08-17] MEDS: SODIUM CHLOR 0.9% PF (SALINE LOCK) 10ML VIAL/SYR IV SCH ×2 (10:10→21:01)
[2020-08-17] MEDS: FLUCONAZOLE 200MG/100ML 100 ML IV SCH (10:10)
[2020-08-17] MEDS: CHOLECALCIFEROL (VITD3) 2,000 UNIT CAP/TAB PO SCH (10:11)
[2020-08-17] MEDS: MIDAZOLAM DRIP 50 mg/50mL 50 ML IV SCH (12:00)
[2020-08-17] MEDS: POTASSIUM CHL 20MEQ/100ML 100 ML IV SCH ×2 (14:00→19:30)
[2020-08-17] MEDS: NOREPINEPHRINE 8 MG/250ML KIT 250 ML IV SCH (14:45)
[2020-08-17] MEDS ORDERED: Jevity 1.2 Cal/Fiber 1 Liter GT SCH (14:45)
[2020-08-17] MEDS ORDERED: TPN PER PHARMACY IV NR ×7 (20:00)
[2020-08-18] VITALS (88 sets, daily range): BP systolic 78–123; BP diastolic 42–81
[2020-08-18] MEDS: LINEZOLID 600MG/300ML 300 ML IV SCH ×2 (04:30→18:00)
[2020-08-18] MEDS: METOCLOPRAMIDE HCL 5MG/ml INJ 2ml VIAL IV SCH ×3 (05:53→22:00)
[2020-08-18] MEDS: ACETAMINOPHEN 500 MG TAB PO PRN (05:54)
[2020-08-18] MEDS: ACCU-CHEK COMFORT CURVE STRIP VI SCH ×3 (05:54→18:26)
[2020-08-18] MEDS: InsuLIN REG 1unit/0.01ml Soln (100units/ml) SC SCH ×3 (05:54→18:00)
[2020-08-18] MEDS: fentaNYL Drip 2500mCg/250mlNS 250 ML IV SCH ×2 (05:57→18:00)
[2020-08-18] MEDS: PROPOFOL 100 ML IV SCH ×4 (05:58→18:00)
[2020-08-18 06:08] LABS: Basophils # (auto) 0.1 10 ^3/uL (0-0.2); Lymphocytes # (auto) 0.9 10 ^3/uL (0.4-5.4); Monocytes # (auto) 0.4 10 ^3/uL (0-1.3); Monocytes % (auto) 7.9 % (0.0-12.0)
[2020-08-18 06:09] LABS: Eosinophils # (auto) 0.1 10 ^3/uL (0-0.8); Eosinophils % (auto) 2.5 % (0.0-7.0); Hematocrit 22.1 % (41.0-53.0); Hemoglobin 7.9 g/dL (13.5-17.5); Lymphocytes % (auto) 18.6 % (10.0-50.0); Mean Corpuscular Hemoglobin 35.1 pg (28.0-32.0); Mean Corpuscular Hgb Conc. 35.9 g/dL (32.0-36.0); Mean Corpuscular Volume 97.6 fL (80.0-100.0); Neutrophils # (auto) 3.4 10 ^3/uL (1.6-8.6); Nucleated Red Blood Cells % 0.2 %; Red Blood Cells 2.27 10^6/uL (4.5-5.90); Red Cell Distribution Width 15.9 % (11.8-14.3); White Blood Cell 4.9 10^3/uL (4.4-10.8)
[2020-08-18 06:22] LABS: Potassium 3.9 mmol/L (3.5-5.1)
[2020-08-18 06:28] LABS: Albumin 1.8 g/dL (3.4-5.0); BUN/Creatinine Ratio 16.7; Bilirubin, Total 0.4 mg/dL (0.2-1.0); Calcium 7.9 mg/dL (8.5-10.1); Total Protein 5.5 g/dL (6.4-8.2)
[2020-08-18] MEDS: MEROPENEM 1GM IVPB 100 ML IV SCH (07:00)
[2020-08-18 07:21] LABS: Urine Bacteria MOD /hpf (None Seen); Urine Blood 2+ /uL (Negative); Urine Mucus FEW (None Seen); Urine Specific Gravity 1.027 (1.001-1.035); Urine WBC 60 /hpf (0 - 3); Urine WBC Clumps PRESENT /hpf (None Seen)
[2020-08-18] MEDS: IPRATROPIUM BROM 0.5 MG/2.5ML INH SOL NEB SCH ×3 (07:47→19:13)
[2020-08-18] MEDS: ALBUTEROL SULF 2.5 MG/0.5ML(0.5%) NEB SOLN NEB SCH ×2 (07:47→14:30)
[2020-08-18] MEDS: ZINC SULFATE 220mg CAP or TAB PO SCH (10:00)
[2020-08-18] MEDS: ASCORBIC ACID 1,000 MG TAB PO SCH (10:00)
[2020-08-18] MEDS: FLUCONAZOLE 200MG/100ML 100 ML IV SCH (10:00)
[2020-08-18] MEDS: PANTOPRAZOLE 40 MG/10 ML VIAL INJ IV SCH (10:00)
[2020-08-18] MEDS: CHOLECALCIFEROL (VITD3) 2,000 UNIT CAP/TAB PO SCH (10:00)
[2020-08-18] MEDS: SODIUM CHLOR 0.9% PF (SALINE LOCK) 10ML VIAL/SYR IV SCH ×2 (10:19→22:00)
[2020-08-18] MEDS: MIDAZOLAM DRIP 50 mg/50mL 50 ML IV SCH (12:00)
[2020-08-18] MEDS: NOREPINEPHRINE 8 MG/250ML KIT 250 ML IV SCH (14:00)
[2020-08-18] MEDS ORDERED: AMIKACIN 0 ML IV SCH (14:30)
[2020-08-18] MEDS ORDERED: AMIKACIN IV ONE (17:30)
[2020-08-18] MEDS ORDERED: D5W 5% IV ONE (17:30)
== END 2020-08-18 23:30 | DRG 870 ==
LOC: EDBD 15:08 → EDUNIT# 15:08 → ER 15:08 → TELE 15:09 → ICU WEST 07-10 23:10
PROVIDERS: ADMIT Nurse Practitioner Acute Care; ATTEND Internal Medicine Nephrology
PROC: 4A143B0 Monitoring of Venous Pressure, Central, Percutaneous Approach (ICD-10-PCS; 2020-07-09)
PROC: 06HN33Z Insertion of Infusion Device into Left Femoral Vein, Percutaneous Approach (ICD-10-PCS; 2020-07-09)
PROC: 5A1955Z Respiratory Ventilation, Greater than 96 Consecutive Hours (ICD-10-PCS; principal; 2020-07-10)
PROC: 0BH17EZ Insertion of Endotracheal Airway into Trachea, Via Natural or Artificial Opening (ICD-10-PCS; 2020-07-10)
PROC: XW13325 Transfusion of Convalescent Plasma (Nonautologous) into Peripheral Vein, Percutaneous Approach, New Technology Group 5 (ICD-10-PCS; 2020-07-10)
PROC: XW033E5 Introduction of Remdesivir Anti-infective into Peripheral Vein, Percutaneous Approach, New Technology Group 5 (ICD-10-PCS; 2020-07-10)
PROC: 02HV33Z Insertion of Infusion Device into Superior Vena Cava, Percutaneous Approach (ICD-10-PCS; 2020-07-30)
DX: A41.89 Other specified sepsis (principal); U07.1 COVID-19; J12.82 Pneumonia due to coronavirus disease 2019; R65.21 Severe sepsis with septic shock; J96.01 Acute respiratory failure with hypoxia; N17.0 Acute kidney failure with tubular necrosis; E43 Unspecified severe protein-calorie malnutrition; G93.41 Metabolic encephalopathy; I60.9 Nontraumatic subarachnoid hemorrhage, unspecified; G93.6 Cerebral edema; J15.1 Pneumonia due to Pseudomonas; I21.A1 Myocardial infarction type 2; Z68.43 Body mass index [BMI] 50.0-59.9, adult; N39.0 Urinary tract infection, site not specified; Z16.24 Resistance to multiple antibiotics; E87.2 Acidosis; E87.6 Hypokalemia; E66.01 Morbid (severe) obesity due to excess calories; N18.2 Chronic kidney disease, stage 2 (mild); E78.5 Hyperlipidemia, unspecified; K70.40 Alcoholic hepatic failure without coma; I44.0 Atrioventricular block, first degree; J45.909 Unspecified asthma, uncomplicated; R00.1 Bradycardia, unspecified; R73.9 Hyperglycemia, unspecified; I50.9 Heart failure, unspecified; R04.0 Epistaxis; Z93.1 Gastrostomy status; E87.5 Hyperkalemia
CPT/HCPCS: 36415; 36569; 36600; 70450; 70496; 71045; 71250; 74176; 80048; 80053; 80061; 81001; 82040; 82271; 82570; 82728; 82805; 82962; 83036; 83605; 83615; 83735; 83880; 84100; 84300; 84478; 84484; 85007; 85025; 85027; 85379; 85610; 85730; 86141; 86850; 86900; 86901; 87040; 87070; 87077; 87081; 87086; 87088; 87186; 87205; 87426; 87804; 93005; 93306; 93923; 93970; 94002; 94003; 94640; C9113; G0378; J0330; J0696; J1100; J1265; J1450; J1815; J2185; J2250; J2543; J2704; J3480; J3490; J7060; J7131

== ENCOUNTER → 2021-01-31 | Outpatient (CLI) | payer OTHER | END | disposition home or self-care (01) | LOC: XYW 08:31 | PROVIDERS: ATTEND Internal Medicine | DX: I35.8 Other nonrheumatic aortic valve disorders (principal); I11.9 Hypertensive heart disease without heart failure | CPT/HCPCS: 93306 ==

== ENCOUNTER → 2021-03-04 | Outpatient (CLI) | payer OTHER ==
[2021-03-04 11:06] LABS: Basophils # (auto) 0 10 ^3/uL (0-0.2); Basophils % (auto) 0.3 % (0.0-2.0); Eosinophils # (auto) 0.1 10 ^3/uL (0-0.8); Eosinophils % (auto) 1.2 % (0.0-7.0); Hematocrit 39.1 % (41.0-53.0); Hemoglobin 13.4 g/dL (13.5-17.5); Lymphocytes # (auto) 1.4 10 ^3/uL (0.4-5.4); Mean Corpuscular Hemoglobin 29.6 pg (28.0-32.0); Mean Corpuscular Hgb Conc. 34.3 g/dL (32.0-36.0); Mean Corpuscular Volume 86.2 fL (80.0-100.0); Monocytes # (auto) 0.3 10 ^3/uL (0-1.3); Monocytes % (auto) 6.4 % (0.0-12.0); Neutrophils # (auto) 3.7 10 ^3/uL (1.6-8.6); Neutrophils % (auto) 67.1 % (37.0-80.0); Red Blood Cells 4.53 10^6/uL (4.5-5.90); Red Cell Distribution Width 15.4 % (11.8-14.3); White Blood Cell 5.5 10^3/uL (4.4-10.8)
[2021-03-04 12:00] LABS: Albumin 3.5 g/dL (3.4-5.0); BUN/Creatinine Ratio 16.4; Bilirubin, Total 0.4 mg/dL (0.2-1.0); Calcium 8.2 mg/dL (8.5-10.1)
== END | disposition home or self-care (01) ==
LOC: LAB 10:37
PROVIDERS: ATTEND Internal Medicine
DX: Z12.11 Encounter for screening for malignant neoplasm of colon (principal); R73.03 Prediabetes
CPT/HCPCS: 36415; 80053; 80061; 82043; 83036; 85025

== ENCOUNTER → 2021-07-09 | Outpatient (CLI) | payer OTHER ==
[2021-07-09 08:32] LABS: BUN/Creatinine Ratio 15.4; Calcium 7.7 mg/dL (8.5-10.1); Potassium 3.6 mmol/L (3.5-5.1)
== END | disposition home or self-care (01) ==
LOC: LAB 07:39
PROVIDERS: ATTEND Internal Medicine
DX: R73.03 Prediabetes (principal); I51.7 Cardiomegaly
CPT/HCPCS: 36415; 80048; 83880

== ENCOUNTER 2021-07-15 23:22 | Inpatient (IN) | payer OTHER ==
[~2021-07-15] VITALS: Ht 182.9 cm; Wt 145.8 kg
[2021-07-16 02:25] LABS: Hematocrit 45.4 % (41.0-53.0); Hemoglobin 15.5 g/dL (13.5-17.5); Mean Corpuscular Hemoglobin 30.8 pg (28.0-32.0); Mean Corpuscular Hgb Conc. 34.1 g/dL (32.0-36.0); Mean Corpuscular Volume 90.4 fL (80.0-100.0); Red Blood Cells 5.02 10^6/uL (4.5-5.90); Red Cell Distribution Width 13.3 % (11.8-14.3); White Blood Cell 10.7 10^3/uL (4.4-10.8)
[2021-07-16 02:30] LABS: Basophils % (manual) 0 (0.0-2.0); Blast Cells 0; Eosinophils % (manual) 0 (0-7); Metamyelocytes % 0; Promyelocytes % 0; Reactive Lymphocytes 0
[2021-07-16 02:44] LABS: Albumin 3.9 g/dL (3.4-5.0); BUN/Creatinine Ratio 12.3; Calcium 8.3 mg/dL (8.5-10.1); Potassium 4.7 mmol/L (3.5-5.1)
[2021-07-16] MEDS ORDERED: MORPHINE SULFATE 10 MG/ML INJ 1ML SDV IV ONE (02:45)
[2021-07-16] MEDS ORDERED: ONDANSETRON HCL 4 MG/2 ML VIAL IV ONE (02:45)
[2021-07-16] MEDS ORDERED: SODIUM CHLORIDE 0.9% 500 ML IVB ONE (02:45)
[2021-07-16 02:47] LABS: Bilirubin, Total 0.7 mg/dL (0.2-1.0); Total Protein 7.7 g/dL (6.4-8.2)
[2021-07-16 03:06] LABS: Magnesium 2.3 mg/dL (1.6-2.6)
[2021-07-16 03:49] LABS: Band Neutrophils % (manual) 8; Lymphocytes % (manual) 6 (10.0-50.0); Monocytes % (manual) 2 (0-12); Myelocytes % 1
[2021-07-16] MEDS ORDERED: ONDANSETRON HCL 4 MG/2 ML VIAL ONE (05:33)
[2021-07-16] MEDS ORDERED: MORPHINE SULFATE 4 MG/ML SYR/VIAL IV ONE (05:45)
[2021-07-16] MEDS ORDERED: MORPHINE SULFATE 4 MG/ML SYR/VIAL ONE (05:50)
[2021-07-16] MEDS ORDERED: MORPHINE SULFATE 4 MG/ML SYR/VIAL IV PRN (06:15)
[2021-07-16] MEDS ORDERED: ONDANSETRON HCL 4 MG/2 ML VIAL IV PRN (06:15)
[2021-07-16] MEDS ORDERED: SODIUM CHLORIDE 0.9% 1,000 ML IV SCH (06:15)
[2021-07-16] MEDS ORDERED: hydrALAZINE HCL 20 MG/ML VL IV PRN (07:00)
[2021-07-16 08:39] LABS: Urine Bacteria NONE SEEN /hpf (None Seen); Urine Blood Negative /uL (Negative); Urine Hyaline Cast FEW /lpf (0 - 2); Urine Mucus FEW (None Seen); Urine Specific Gravity 1.031 (1.001-1.035); Urine WBC 5 /hpf (0 - 3)
[2021-07-16] MEDS ORDERED: GASTROGRAFIN 120 ML SOL ONE (08:55)
[2021-07-16 09:00] VITALS: BP 115/74
[2021-07-16] MEDS: PANTOPRAZOLE 40 MG/10 ML VIAL INJ IV SCH (10:55)
[2021-07-16] MEDS ORDERED: POTA10TA51 PO (12:10)
[2021-07-16] MEDS ORDERED: APIX5TAB PO (12:10)
[2021-07-16] MEDS ORDERED: FURO40TA4 PO (12:10)
[2021-07-16] MEDS ORDERED: TAMS1CAP25 PO (12:10)
[2021-07-16] MEDS ORDERED: SPIR25TA8 PO (12:10)
[2021-07-16] MEDS ORDERED: METO25TA93 PO (12:10)
[2021-07-16] MEDS ORDERED: SACU1TAB PO (12:10)
[2021-07-16 13:00] VITALS: BP 129/76
[2021-07-16] MEDS: SODIUM CHLORIDE 0.9% 1,000 ML IV SCH (14:30)
[2021-07-16 17:00] VITALS: BP 113/76
[2021-07-16 22:00] VITALS: BP 112/55
[2021-07-17 05:00] VITALS: BP 106/54
[2021-07-17 06:31] LABS: Albumin 3.3 g/dL (3.4-5.0); BUN/Creatinine Ratio 14.6; Bilirubin, Total 0.6 mg/dL (0.2-1.0); Calcium 7.5 mg/dL (8.5-10.1); Total Protein 6.4 g/dL (6.4-8.2)
[2021-07-17 06:41] LABS: Basophils # (auto) 0 10 ^3/uL (0-0.2); Basophils % (auto) 0.3 % (0.0-2.0); Eosinophils # (auto) 0.1 10 ^3/uL (0-0.8); Eosinophils % (auto) 0.9 % (0.0-7.0); Hematocrit 41.8 % (41.0-53.0); Hemoglobin 14.2 g/dL (13.5-17.5); Lymphocytes # (auto) 1.4 10 ^3/uL (0.4-5.4); Lymphocytes % (auto) 20.7 % (10.0-50.0); Mean Corpuscular Hemoglobin 30.7 pg (28.0-32.0); Mean Corpuscular Hgb Conc. 33.9 g/dL (32.0-36.0); Mean Corpuscular Volume 90.5 fL (80.0-100.0); Monocytes # (auto) 0.5 10 ^3/uL (0-1.3); Monocytes % (auto) 6.8 % (0.0-12.0); Neutrophils # (auto) 4.8 10 ^3/uL (1.6-8.6); Neutrophils % (auto) 71.3 % (37.0-80.0); Nucleated Red Blood Cells % 0.1 %; Red Blood Cells 4.62 10^6/uL (4.5-5.90); Red Cell Distribution Width 13.5 % (11.8-14.3); White Blood Cell 6.7 10^3/uL (4.4-10.8)
[2021-07-17] MEDS: SODIUM CHLORIDE 0.9% 1,000 ML IV SCH (06:46)
[2021-07-17] MEDS: PANTOPRAZOLE 40 MG/10 ML VIAL INJ IV SCH (09:09)
[2021-07-17 12:35] VITALS: BP 109/74
== END 2021-07-17 16:21 | disposition home or self-care (01) | DRG 389 ==
LOC: ER 23:22 → EDBD 23:22 → OVERFLOW 07-16 06:05 → WEST WING 07-16 08:41
PROVIDERS: ADMIT Nurse Practitioner; ATTEND Internal Medicine
DX: K56.600 Partial intestinal obstruction, unspecified as to cause (principal); I50.32 Chronic diastolic (congestive) heart failure; Z68.41 Body mass index [BMI] 40.0-44.9, adult; I11.0 Hypertensive heart disease with heart failure; K57.90 Diverticulosis of intestine, part unspecified, without perforation or abscess without bleeding; E66.01 Morbid (severe) obesity due to excess calories; J45.909 Unspecified asthma, uncomplicated; N40.0 Benign prostatic hyperplasia without lower urinary tract symptoms; Z20.822 Contact with and (suspected) exposure to COVID-19; E78.5 Hyperlipidemia, unspecified; Z80.0 Family history of malignant neoplasm of digestive organs; Z86.16 Personal history of COVID-19; Z82.5 Family history of asthma and other chronic lower respiratory diseases; Z87.01 Personal history of pneumonia (recurrent); Z90.49 Acquired absence of other specified parts of digestive tract; Z79.899 Other long term (current) drug therapy
CPT/HCPCS: 36415; 74176; 74250; 80053; 81001; 82150; 83690; 83735; 85007; 85025; 85027; 87426; 93005; 96361; 96374; 96375; C9113; G0378; J2405

== ENCOUNTER 2021-10-13 12:20 | Emergency (ER) | payer OTHER ==
[~2021-10-13] VITALS: Ht 172.7 cm; Wt 152.0 kg
[~2021-10-13 12:20] MED LIST: APIX5TAB PO; FURO40TA4 PO; METO25TA93 PO; POTA10TA51 PO; SACU1TAB PO; SPIR25TA8 PO; TAMS1CAP25 PO
[2021-10-13 13:15] LABS: Basophils # (auto) 0 10 ^3/uL (0-0.2); Basophils % (auto) 0.2 % (0.0-2.0); Eosinophils # (auto) 0.1 10 ^3/uL (0-0.8); Eosinophils % (auto) 1.4 % (0.0-7.0); Hematocrit 42.8 % (41.0-53.0); Hemoglobin 14.8 g/dL (13.5-17.5); Lymphocytes # (auto) 1.1 10 ^3/uL (0.4-5.4); Lymphocytes % (auto) 21.7 % (10.0-50.0); Mean Corpuscular Hemoglobin 30.7 pg (28.0-32.0); Mean Corpuscular Hgb Conc. 34.7 g/dL (32.0-36.0); Mean Corpuscular Volume 88.5 fL (80.0-100.0); Monocytes # (auto) 0.3 10 ^3/uL (0-1.3); Monocytes % (auto) 6.2 % (0.0-12.0); Neutrophils # (auto) 3.6 10 ^3/uL (1.6-8.6); Neutrophils % (auto) 70.5 % (37.0-80.0); Red Blood Cells 4.83 10^6/uL (4.5-5.90); Red Cell Distribution Width 13.3 % (11.8-14.3); White Blood Cell 5.2 10^3/uL (4.4-10.8)
[2021-10-13 13:24] LABS: Albumin 3.4 g/dL (3.4-5.0); BUN/Creatinine Ratio 15.5; Calcium 8.2 mg/dL (8.5-10.1); Potassium 3.9 mmol/L (3.5-5.1)
[2021-10-13 13:29] LABS: Bilirubin, Total 0.4 mg/dL (0.2-1.0); Total Protein 6.6 g/dL (6.4-8.2)
[2021-10-13 13:38] LABS: Urine Bacteria NONE SEEN /hpf (None Seen); Urine Blood Negative /uL (Negative); Urine Specific Gravity 1.025 (1.001-1.035); Urine WBC 3 /hpf (0 - 3)
[2021-10-13 13:44] LABS: Alcohol, Urine < 3.0 mg/dL (0-10); Amphetamine Screen, Urine NEGATIVE (NEGATIVE); Barbiturate Scree,Urine NEGATIVE (NEGATIVE); Benzodiazephine Screen, Urine NEGATIVE (NEGATIVE); Cannabinoid Screen, Urine NEGATIVE (NEGATIVE); Cocaine Screen, Urine NEGATIVE (NEGATIVE); Opiate Scree,Urine NEGATIVE (NEGATIVE); Phencyclidine Screen, Urine NEGATIVE (NEGATIVE)
[2021-10-13 18:23] VITALS: BP 131/81
== END 2021-10-13 18:59 | disposition short-term general hospital (02) ==
LOC: ER 12:20
DX: I60.9 Nontraumatic subarachnoid hemorrhage, unspecified (principal); R42 Dizziness and giddiness; J45.909 Unspecified asthma, uncomplicated; Z90.49 Acquired absence of other specified parts of digestive tract; Z79.899 Other long term (current) drug therapy
CPT/HCPCS: 36415; 70450; 71045; 80053; 80307; 81001; 83735; 83880; 84484; 85025; 93005

== ENCOUNTER 2021-10-16 11:41 | Emergency (ER) | payer OTHER ==
[~2021-10-16] VITALS: Ht 172.7 cm; Wt 152.0 kg
[2021-10-16 14:12] VITALS: BP 151/86
== END 2021-10-16 14:24 | disposition home or self-care (01) ==
LOC: ER 11:41
DX: I60.9 Nontraumatic subarachnoid hemorrhage, unspecified (principal); R42 Dizziness and giddiness; J45.909 Unspecified asthma, uncomplicated; E78.5 Hyperlipidemia, unspecified; Z90.49 Acquired absence of other specified parts of digestive tract
CPT/HCPCS: 70450

== ENCOUNTER → 2021-12-31 | Outpatient (CLI) | payer OTHER ==
[~2021-12-31] MED LIST changes: +ALBUTEROL SULF 2.5 MG/0.5ML(0.5%) NEB SOLN ONE
== END | disposition home or self-care (01) ==
LOC: RT 10:45
PROVIDERS: ATTEND Internal Medicine Pulmonary Disease
DX: J44.9 Chronic obstructive pulmonary disease, unspecified (principal); U09.9 Post COVID-19 condition, unspecified
CPT/HCPCS: 94060

== ENCOUNTER 2022-01-28 05:07 | Inpatient (IN) | payer OTHER ==
[~2022-01-28] VITALS: Ht 172.7 cm; Wt 70.0 kg
[~2022-01-28 05:07] MED LIST changes: -ALBUTEROL SULF 2.5 MG/0.5ML(0.5%) NEB SOLN ONE
[2022-01-28 06:46] LABS: Urine Bacteria NONE SEEN /hpf (None Seen); Urine Blood Negative /uL (Negative); Urine Specific Gravity 1.025 (1.001-1.035); Urine WBC 1 /hpf (0 - 3)
[2022-01-28 07:13] LABS: Basophils # (auto) 0 10 ^3/uL (0-0.2); Basophils % (auto) 0.4 % (0.0-2.0); Eosinophils # (auto) 0.2 10 ^3/uL (0-0.8); Eosinophils % (auto) 3.5 % (0.0-7.0); Hematocrit 39.9 % (41.0-53.0); Hemoglobin 13.9 g/dL (13.5-17.5); Lymphocytes # (auto) 0.7 10 ^3/uL (0.4-5.4); Lymphocytes % (auto) 14.8 % (10.0-50.0); Mean Corpuscular Hemoglobin 30.9 pg (28.0-32.0); Mean Corpuscular Hgb Conc. 34.8 g/dL (32.0-36.0); Mean Corpuscular Volume 88.7 fL (80.0-100.0); Monocytes # (auto) 0.4 10 ^3/uL (0-1.3); Monocytes % (auto) 9.8 % (0.0-12.0); Neutrophils # (auto) 3.2 10 ^3/uL (1.6-8.6); Neutrophils % (auto) 71.5 % (37.0-80.0); Nucleated Red Blood Cells % 0.1 %; Red Blood Cells 4.49 10^6/uL (4.5-5.90); Red Cell Distribution Width 13.3 % (11.8-14.3); White Blood Cell 4.5 10^3/uL (4.4-10.8)
[2022-01-28 07:29] LABS: Albumin 3.6 g/dL (3.4-5.0); Potassium 4.1 mmol/L (3.5-5.1)
[2022-01-28 07:33] LABS: BUN/Creatinine Ratio 15.9; Bilirubin, Total 0.5 mg/dL (0.2-1.0)
[2022-01-28] MEDS ORDERED: cefTRIAXone 1GM/50ML D5W 50 ML IV ONE (08:30)
[2022-01-28] MEDS ORDERED: AZITHROMYCIN 500MG/ 250ML 250 ML IV ONE (08:30)
[2022-01-28] MEDS ORDERED: MORPHINE SULFATE INJ 2 MG/ml SYRG IV PRN ×2 (10:15)
[2022-01-28] MEDS ORDERED: ONDANSETRON HCL 4 MG/2 ML VIAL IV PRN ×2 (10:15→16:00)
[2022-01-28] MEDS ORDERED: NITROGLYCERIN 0.4 MG SL TAB SL PRN (10:15)
[2022-01-28] MEDS ORDERED: SODIUM CHLORIDE 0.9% 1,000 ML IV SCH (14:15)
[2022-01-28] MEDS ORDERED: IOHEXOL 350 MG/ML 100ML IJ ONE (14:35)
[2022-01-28] MEDS ORDERED: BUDESONIDE (INHALATION) 0.5 MG/2 ML NEB NEB ONE (16:00)
[2022-01-28] MEDS ORDERED: LORazepam 2MG/ML-1ML VIAL IV PRN (16:00)
[2022-01-28] MEDS ORDERED: hydrALAZINE HCL 20 MG/ML VL IV PRN (16:00)
[2022-01-28] MEDS ORDERED: HYDROcodone-ACET 5/325MG TAB PO PRN (16:00)
[2022-01-28] MEDS ORDERED: DOCUSATE SOD 100 MG CAP PO PRN (16:00)
[2022-01-28] MEDS ORDERED: LORazepam 0.5 MG TAB PO PRN (16:00)
[2022-01-28] MEDS: SODIUM CHLORIDE 0.9% 1,000 ML IV SCH ×2 (16:15→22:31)
[2022-01-28 16:17] LABS: Magnesium 2.5 mg/dL (1.6-2.6)
[2022-01-28 16:19] LABS: Phosphorus 3.1 mg/dL (2.5-4.90)
[2022-01-28 17:27] VITALS: BP 118/62
[2022-01-28 17:50] LABS: INR 1.02 (0.9-1.15); Partial Thromboplastin Time 27.9 sec (23.6-33.0)
[2022-01-28] MEDS ORDERED: IPRATROPIUM BROM 0.5 MG/2.5ML INH SOL NEB SCH (18:00)
[2022-01-28] MEDS ORDERED: TAMSULOSIN HYDROCHLORIDE 0.4 MG CAP PO SCH ×2 (18:00)
[2022-01-28] MEDS: FUROSEMIDE 20 MG/2 ML VIAL IV SCH (19:22)
[2022-01-28] MEDS: ALBUTEROL SULF 2.5 MG/0.5ML(0.5%) NEB SOLN NEB PRN (19:24)
[2022-01-28] MEDS: IPRATROPIUM BROM 0.5 MG/2.5ML INH SOL NEB PRN (19:25)
[2022-01-28 22:00] VITALS: BP 132/76
[2022-01-28] MEDS: APIXABAN 5 MG TAB PO SCH (22:00)
[2022-01-28] MEDS: POTASSIUM CHL 20 Meq TABLET PO SCH (22:16)
[2022-01-28] MEDS: SACUBITRIL-VALSARTAN 24mg/26mg TAB PO SCH (22:16)
[2022-01-28] MEDS: levETIRAcetam 500 MG TAB PO SCH (22:16)
[2022-01-28] MEDS: ATORVASTATIN 20 MG TAB PO SCH (22:17)
[2022-01-29 05:00] VITALS: BP 95/42
[2022-01-29] MEDS: FUROSEMIDE 20 MG/2 ML VIAL IV SCH ×2 (06:00→18:46)
[2022-01-29 06:51] LABS: Basophils # (auto) 0 10 ^3/uL (0-0.2); Eosinophils # (auto) 0.3 10 ^3/uL (0-0.8); Eosinophils % (auto) 6.2 % (0.0-7.0); Hematocrit 38.8 % (41.0-53.0); Hemoglobin 13.8 g/dL (13.5-17.5); Lymphocytes # (auto) 0.8 10 ^3/uL (0.4-5.4); Lymphocytes % (auto) 19.1 % (10.0-50.0); Mean Corpuscular Hemoglobin 31.5 pg (28.0-32.0); Mean Corpuscular Hgb Conc. 35.7 g/dL (32.0-36.0); Mean Corpuscular Volume 88.3 fL (80.0-100.0); Monocytes # (auto) 0.5 10 ^3/uL (0-1.3); Monocytes % (auto) 11.8 % (0.0-12.0); Neutrophils # (auto) 2.6 10 ^3/uL (1.6-8.6); Neutrophils % (auto) 61.9 % (37.0-80.0); Nucleated Red Blood Cells % 0.2 %; Red Cell Distribution Width 13.3 % (11.8-14.3); White Blood Cell 4.2 10^3/uL (4.4-10.8)
[2022-01-29 07:27] LABS: INR 0.99 (0.9-1.15); Partial Thromboplastin Time 28.8 sec (23.6-33.0)
[2022-01-29 08:00] VITALS: BP 116/68
[2022-01-29] MEDS: cefTRIAXone 1GM/50ML D5W 50 ML IV SCH (08:41)
[2022-01-29] MEDS: ACETAMINOPHEN 325 MG TAB PO PRN (08:50)
[2022-01-29 09:28] LABS: Albumin 3.4 g/dL (3.4-5.0); BUN/Creatinine Ratio 15.9; Calcium 8.1 mg/dL (8.5-10.1); Magnesium 2.4 mg/dL (1.6-2.6); Uric Acid 7.1 mg/dL (3.5-7.2)
[2022-01-29 09:36] LABS: Bilirubin, Total 0.5 mg/dL (0.2-1.0); CRP High Sensitivity 1.75 mg/dL (< 0.3); Phosphorus 3.3 mg/dL (2.5-4.90); Total Protein 6.9 g/dL (6.4-8.2)
[2022-01-29] MEDS: FAMOTIDINE (10MG/ML) 2ML VL IV SCH (09:38)
[2022-01-29] MEDS: SACUBITRIL-VALSARTAN 24mg/26mg TAB PO SCH ×2 (09:38→21:56)
[2022-01-29] MEDS: CHOLECALCIFEROL (VITD3) 2,000 UNIT CAP/TAB PO SCH (09:38)
[2022-01-29] MEDS: ASPirin 81 mg TAB PO SCH (09:38)
[2022-01-29] MEDS: APIXABAN 5 MG TAB PO SCH (09:40)
[2022-01-29] MEDS: POTASSIUM CHL 20 Meq TABLET PO SCH ×2 (09:40→21:56)
[2022-01-29] MEDS: AZITHROMYCIN 500MG/ 250ML 250 ML IV SCH (09:40)
[2022-01-29] MEDS: levETIRAcetam 500 MG TAB PO SCH ×2 (09:40→21:55)
[2022-01-29] MEDS: AMIODARONE HCL 200 MG TAB PO SCH (09:45)
[2022-01-29 12:00] VITALS: BP 106/57
[2022-01-29 16:00] VITALS: BP 105/59
[2022-01-29 20:00] VITALS: BP 105/59
[2022-01-29] MEDS: PROMETHAZINE-DM 5 ML ORAL SYRUP PO PRN (21:57)
[2022-01-29] MEDS: ATORVASTATIN 20 MG TAB PO SCH (21:58)
[2022-01-29 22:00] VITALS: BP 100/53
[2022-01-30 05:00] VITALS: BP 92/53
[2022-01-30] MEDS: FUROSEMIDE 20 MG/2 ML VIAL IV SCH ×2 (05:42→17:49)
[2022-01-30 08:00] VITALS: BP 114/68
[2022-01-30] MEDS: SACUBITRIL-VALSARTAN 24mg/26mg TAB PO SCH ×2 (09:21→21:00)
[2022-01-30] MEDS: ASPirin 81 mg TAB PO SCH (09:21)
[2022-01-30] MEDS: POTASSIUM CHL 20 Meq TABLET PO SCH ×2 (09:21→21:00)
[2022-01-30] MEDS: cefTRIAXone 1GM/50ML D5W 50 ML IV SCH (09:21)
[2022-01-30] MEDS: levETIRAcetam 500 MG TAB PO SCH ×2 (09:22→20:59)
[2022-01-30] MEDS: FAMOTIDINE (10MG/ML) 2ML VL IV SCH (09:22)
[2022-01-30] MEDS: CHOLECALCIFEROL (VITD3) 2,000 UNIT CAP/TAB PO SCH (09:22)
[2022-01-30] MEDS: AMIODARONE HCL 200 MG TAB PO SCH (09:23)
[2022-01-30] MEDS: AZITHROMYCIN 500MG/ 250ML 250 ML IV SCH (10:25)
[2022-01-30] MEDS ORDERED: predniSONE 20 MG TAB PO ONE (11:00)
[2022-01-30 12:00] VITALS: BP 114/68
[2022-01-30 16:00] VITALS: BP 128/87
[2022-01-30] MEDS: SODIUM CHLORIDE 0.9% 1,000 ML IV SCH (16:00)
[2022-01-30] MEDS: ALBUTEROL SULF 2.5 MG/0.5ML(0.5%) NEB SOLN NEB PRN (20:38)
[2022-01-30] MEDS: IPRATROPIUM BROM 0.5 MG/2.5ML INH SOL NEB PRN (20:38)
[2022-01-30] MEDS: ATORVASTATIN 20 MG TAB PO SCH (20:59)
[2022-01-30 22:00] VITALS: BP 105/47
[2022-01-30] MEDS: ACETAMINOPHEN 325 MG TAB PO PRN (22:39)
[2022-01-30] MEDS: PROMETHAZINE-DM 5 ML ORAL SYRUP PO PRN (23:44)
[2022-01-31 04:47] VITALS: BP 106/70
[2022-01-31] MEDS: FUROSEMIDE 20 MG/2 ML VIAL IV SCH ×3 (05:58→17:52)
[2022-01-31 08:00] VITALS: BP 141/92
[2022-01-31] MEDS: ASPirin 81 mg TAB PO SCH (08:42)
[2022-01-31] MEDS: FAMOTIDINE (10MG/ML) 2ML VL IV SCH (08:42)
[2022-01-31] MEDS: predniSONE 20 MG TAB PO SCH (08:42)
[2022-01-31] MEDS: cefTRIAXone 1GM/50ML D5W 50 ML IV SCH (08:42)
[2022-01-31] MEDS: levETIRAcetam 500 MG TAB PO SCH ×2 (08:43→20:57)
[2022-01-31] MEDS: SACUBITRIL-VALSARTAN 24mg/26mg TAB PO SCH ×2 (08:43→21:02)
[2022-01-31] MEDS: POTASSIUM CHL 20 Meq TABLET PO SCH ×2 (08:43→20:58)
[2022-01-31] MEDS: AMIODARONE HCL 200 MG TAB PO SCH (08:43)
[2022-01-31] MEDS: CHOLECALCIFEROL (VITD3) 2,000 UNIT CAP/TAB PO SCH (08:44)
[2022-01-31] MEDS: AZITHROMYCIN 500MG/ 250ML 250 ML IV SCH (10:00)
[2022-01-31 12:00] VITALS: BP 123/87
[2022-01-31 16:00] VITALS: BP 97/54
[2022-01-31] MEDS: SODIUM CHLORIDE 0.9% 1,000 ML IV SCH (16:00)
[2022-01-31 18:44] VITALS: BP 97/54
[2022-01-31] MEDS: ATORVASTATIN 20 MG TAB PO SCH (20:56)
[2022-01-31 22:00] VITALS: BP 125/68
[2022-02-01 05:00] VITALS: BP 100/59
[2022-02-01] MEDS: FUROSEMIDE 20 MG/2 ML VIAL IV SCH (06:11)
[2022-02-01 09:00] VITALS: BP 109/80
[2022-02-01] MEDS: FAMOTIDINE (10MG/ML) 2ML VL IV SCH (09:00)
[2022-02-01] MEDS: cefTRIAXone 1GM/50ML D5W 50 ML IV SCH (09:00)
[2022-02-01] MEDS: levETIRAcetam 500 MG TAB PO SCH (09:01)
[2022-02-01] MEDS: predniSONE 20 MG TAB PO SCH (09:01)
[2022-02-01] MEDS: POTASSIUM CHL 20 Meq TABLET PO SCH (09:01)
[2022-02-01] MEDS: SACUBITRIL-VALSARTAN 24mg/26mg TAB PO SCH (09:02)
[2022-02-01] MEDS: CHOLECALCIFEROL (VITD3) 2,000 UNIT CAP/TAB PO SCH (09:02)
[2022-02-01] MEDS: ASPirin 81 mg TAB PO SCH (09:02)
[2022-02-01] MEDS: AMIODARONE HCL 200 MG TAB PO SCH (09:03)
[2022-02-01] MEDS: AZITHROMYCIN 500MG/ 250ML 250 ML IV SCH (10:57)
[2022-02-01] MEDS: ALBUTEROL SULF 2.5 MG/0.5ML(0.5%) NEB SOLN NEB PRN (11:07)
[2022-02-01] MEDS: IPRATROPIUM BROM 0.5 MG/2.5ML INH SOL NEB PRN (11:07)
[2022-02-01] MEDS ORDERED: ALBUAER3 IN (12:05)
[2022-02-01] MEDS ORDERED: PRED20TA2 PO (12:05)
[2022-02-01] MEDS ORDERED: AZIT500T66 PO (12:05)
[2022-02-01 13:00] VITALS: BP 96/52
[2022-02-01 14:16] VITALS: BP 96/52
== END 2022-02-01 16:17 | disposition home or self-care (01) | DRG 193 ==
LOC: ER 05:07 → OVERFLOW 10:16 → TELE-EAST 18:02
PROVIDERS: ADMIT Hospitalist; ATTEND Family Medicine
PROC: 5A09357 Assistance with Respiratory Ventilation, Less than 24 Consecutive Hours, Continuous Positive Airway Pressure (ICD-10-PCS; principal; 2022-01-29)
PROC: 5A09357 Assistance with Respiratory Ventilation, Less than 24 Consecutive Hours, Continuous Positive Airway Pressure (ICD-10-PCS; 2022-01-31)
PROC: 5A09357 Assistance with Respiratory Ventilation, Less than 24 Consecutive Hours, Continuous Positive Airway Pressure (ICD-10-PCS; 2022-02-01)
DX: J18.9 Pneumonia, unspecified organism (principal); I50.33 Acute on chronic diastolic (congestive) heart failure; J96.21 Acute and chronic respiratory failure with hypoxia; J44.1 Chronic obstructive pulmonary disease with (acute) exacerbation; J98.11 Atelectasis; G40.909 Epilepsy, unspecified, not intractable, without status epilepticus; I11.0 Hypertensive heart disease with heart failure; I27.9 Pulmonary heart disease, unspecified; I48.0 Paroxysmal atrial fibrillation; G47.30 Sleep apnea, unspecified; I44.0 Atrioventricular block, first degree; Z20.822 Contact with and (suspected) exposure to COVID-19; J84.10 Pulmonary fibrosis, unspecified; N40.0 Benign prostatic hyperplasia without lower urinary tract symptoms; E78.00 Pure hypercholesterolemia, unspecified; Z87.891 Personal history of nicotine dependence; Z90.49 Acquired absence of other specified parts of digestive tract; Z86.16 Personal history of COVID-19
CPT/HCPCS: 36415; 36600; 70450; 71045; 71275; 80053; 80061; 81001; 82550; 82728; 82805; 83036; 83605; 83615; 83690; 83735; 83880; 83970; 84100; 84439; 84443; 84484; 84550; 85025; 85379; 85610; 85652; 85730; 86141; 87040; 87086; 87804; 93005; 94640; 94660; 96365; 96367; G0378; J0696; J3490

== ENCOUNTER → 2022-02-11 | Outpatient (CLI) | payer OTHER ==
[~2022-02-11] MED LIST changes: +ALBUAER3 IN; -APIX5TAB PO; +AZIT500T66 PO; +PRED20TA2 PO
== END | disposition home or self-care (01) ==
LOC: LAB 09:19
PROVIDERS: ATTEND Internal Medicine
DX: J44.1 Chronic obstructive pulmonary disease with (acute) exacerbation (principal); J98.11 Atelectasis; I10 Essential (primary) hypertension
CPT/HCPCS: 36415; 82550; 83970; 84153; 84443

== ENCOUNTER → 2022-04-01 | Outpatient (CLI) | payer OTHER | END | disposition home or self-care (01) | LOC: LAB 12:08 | PROVIDERS: ATTEND Internal Medicine | DX: K76.0 Fatty (change of) liver, not elsewhere classified (principal); N18.30 Chronic kidney disease, stage 3 unspecified; J44.1 Chronic obstructive pulmonary disease with (acute) exacerbation; M47.9 Spondylosis, unspecified | CPT/HCPCS: 36415; 82607; 84207; 85652 ==

== ENCOUNTER 2022-05-09 07:12 | Day surgery (SDC) | payer OTHER ==
[2022-05-06 11:07] LABS: Basophils # (auto) 0 10 ^3/uL (0-0.2); Basophils % (auto) 0.5 % (0.0-2.0); Eosinophils # (auto) 0.1 10 ^3/uL (0-0.8); Eosinophils % (auto) 1.5 % (0.0-7.0); Hematocrit 39.4 % (41.0-53.0); Hemoglobin 13.4 g/dL (13.5-17.5); Lymphocytes # (auto) 1.1 10 ^3/uL (0.4-5.4); Lymphocytes % (auto) 23.5 % (10.0-50.0); Mean Corpuscular Hemoglobin 30.2 pg (28.0-32.0); Mean Corpuscular Hgb Conc. 34.1 g/dL (32.0-36.0); Mean Corpuscular Volume 88.4 fL (80.0-100.0); Monocytes # (auto) 0.4 10 ^3/uL (0-1.3); Monocytes % (auto) 8.1 % (0.0-12.0); Neutrophils # (auto) 3.2 10 ^3/uL (1.6-8.6); Neutrophils % (auto) 66.4 % (37.0-80.0); Red Blood Cells 4.45 10^6/uL (4.5-5.90); Red Cell Distribution Width 13.3 % (11.8-14.3); White Blood Cell 4.8 10^3/uL (4.4-10.8)
[2022-05-06 11:45] LABS: Albumin 3.5 g/dL (3.4-5.0); Calcium 8.1 mg/dL (8.5-10.1); Potassium 4.1 mmol/L (3.5-5.1)
[2022-05-06 11:50] LABS: Bilirubin, Total 0.5 mg/dL (0.2-1.0); Total Protein 6.6 g/dL (6.4-8.2)
[2022-05-06 13:40] LABS: INR 0.98 (0.9-1.15); Partial Thromboplastin Time 27.9 sec (24.6-33.4)
[2022-05-09] VITALS (9 sets, daily range): BP systolic 112–139; BP diastolic 67–92
[~2022-05-09] VITALS: Ht 172.7 cm; Wt 156.5 kg
[~2022-05-09 07:12] MED LIST changes: +ALBU108A14 IN; +ASPI-543 PO; -AZIT500T66 PO; +CARV3.1240 PO; +CHOL1CAP58 PO; +LEVE100012 PO; +LISI2.5T47 PO; +POTA-180 PO; -POTA10TA51 PO; -PRED20TA2 PO; -SACU1TAB PO; -SPIR25TA8 PO; -TAMS1CAP25 PO
[2022-05-09] MEDS ORDERED: LIDOCAINE 2%HCL (LOCAL ANESTH.) INJ 20ML MDV ONE (09:05)
[2022-05-09] MEDS ORDERED: IODIXANOL 320MG/ML 100ML BTL IV ONE (09:05)
[2022-05-09] MEDS ORDERED: HEPARIN IN NS 1000Units/500mL 0 ML ONE (09:06)
[2022-05-09] MEDS ORDERED: fentaNYL CITRATE 100 MCG/2 ML VL ONE (09:21)
[2022-05-09] MEDS ORDERED: SODIUM CHL 0.9% 0 ML ONE (09:21)
[2022-05-09] MEDS ORDERED: ANGIOMAX 250 MG VIAL IV ONE (09:21)
[2022-05-09] MEDS ORDERED: MIDAZOLAM HCL 2MG/2ML 2ml VIAL (1mg/ml) ONE (09:21)
[2022-05-09] MEDS ORDERED: VERAPAMIL 2.5MG/ML INJ 2ML VIAL IV ONE (09:22)
[2022-05-09] MEDS ORDERED: HEPARIN SODIUM (PORCINE) 5000 UNITS/ML 1ML VIAL ONE (09:22)
== END 2022-05-09 12:29 | disposition home or self-care (01) ==
LOC: CATH 07:12
PROVIDERS: ATTEND Internal Medicine
DX: R94.39 Abnormal result of other cardiovascular function study (principal); J44.9 Chronic obstructive pulmonary disease, unspecified; I11.0 Hypertensive heart disease with heart failure; I50.30 Unspecified diastolic (congestive) heart failure; G47.33 Obstructive sleep apnea (adult) (pediatric); Z80.0 Family history of malignant neoplasm of digestive organs; Z80.8 Family history of malignant neoplasm of other organs or systems; Z82.5 Family history of asthma and other chronic lower respiratory diseases; Z20.822 Contact with and (suspected) exposure to COVID-19
CPT/HCPCS: 36415; 80053; 85025; 85610; 85730; 93458; C1769; C1887; C1894; J1644; J2250; J3010; J7030; Q9967; U0003; 99152; 99153

== ENCOUNTER → 2022-07-01 | Outpatient (CLI) | payer OTHER ==
[2022-07-01 11:07] LABS: Urine Bacteria NONE SEEN /hpf (None Seen); Urine Blood Negative /uL (Negative); Urine Specific Gravity 1.023 (1.001-1.035); Urine WBC 2 /hpf (0 - 3)
== END | disposition home or self-care (01) ==
LOC: LAB 10:27
PROVIDERS: ATTEND Internal Medicine
DX: E66.9 Obesity, unspecified (principal); D64.9 Anemia, unspecified; R35.1 Nocturia; N40.0 Benign prostatic hyperplasia without lower urinary tract symptoms; N20.0 Calculus of kidney; J44.9 Chronic obstructive pulmonary disease, unspecified; J84.10 Pulmonary fibrosis, unspecified
CPT/HCPCS: 36415; 81001; 83880; 84443; 87086

== ENCOUNTER → 2022-10-15 | Outpatient (CLI) | payer OTHER ==
[~2022-10-15] MED LIST changes: +PRED20TA2 PO; +TAMIFLU PO
[2022-10-15 09:11] LABS: Cholesterol 163 mg/dL (< 200); HDL Cholesterol 42 mg/dL (40-59); LDL Cholesterol 101 mg/dL (< 100); Triglycerides 113 mg/dL (< 150)
== END | disposition home or self-care (01) ==
LOC: LAB 07:48
PROVIDERS: ATTEND Internal Medicine
DX: I11.0 Hypertensive heart disease with heart failure (principal); I50.32 Chronic diastolic (congestive) heart failure; J44.9 Chronic obstructive pulmonary disease, unspecified
CPT/HCPCS: 36415; 80061; 82043

== ENCOUNTER → 2023-01-19 | Outpatient (CLI) | payer OTHER | END | disposition home or self-care (01) | LOC: LAB 07:21 | PROVIDERS: ATTEND Urology | DX: N40.0 Benign prostatic hyperplasia without lower urinary tract symptoms (principal); N40.1 Benign prostatic hyperplasia with lower urinary tract symptoms; N39.9 Disorder of urinary system, unspecified | CPT/HCPCS: 84153 ==

== ENCOUNTER → 2023-02-05 | Outpatient (CLI) | payer OTHER | END | disposition home or self-care (01) | LOC: XYW 13:30 | PROVIDERS: ATTEND Internal Medicine | DX: I51.7 Cardiomegaly (principal); I35.8 Other nonrheumatic aortic valve disorders; I50.32 Chronic diastolic (congestive) heart failure | CPT/HCPCS: 93306 ==

== ENCOUNTER 2023-02-17 00:08 | Emergency (ER) | payer OTHER ==
[~2023-02-17] VITALS: Ht 172.7 cm; Wt 154.5 kg
[2023-02-17 03:09] VITALS: BP 118/64
[2023-02-17] MEDS ORDERED: ACET500T58 PO (03:26)
[2023-02-17] MEDS ORDERED: CYCL-837 PO (03:26)
[2023-02-17] MEDS ORDERED: KETOROLAC TROMETH 60MG/2ML VIAL IM ONE (03:30)
== END 2023-02-17 03:34 | disposition home or self-care (01) ==
LOC: ER 00:08
DX: S39.012A Strain of muscle, fascia and tendon of lower back, initial encounter (principal); S50.12XA Contusion of left forearm, initial encounter; J45.909 Unspecified asthma, uncomplicated; E78.5 Hyperlipidemia, unspecified; M54.2 Cervicalgia; Z90.49 Acquired absence of other specified parts of digestive tract; W07.XXXA Fall from chair, initial encounter; Y93.89 Activity, other specified; Y92.89 Other specified places as the place of occurrence of the external cause; Y99.8 Other external cause status
CPT/HCPCS: 70450; 72125; 72131; 73080; 73090; 96372; 99285; J1885

== ENCOUNTER → 2023-02-25 | Outpatient (CLI) | payer OTHER ==
[~2023-02-25] MED LIST changes: +ACET500T58 PO; +CYCL-837 PO
[2023-02-25 09:39] LABS: Basophils # (auto) 0 10 ^3/uL (0-0.2); Basophils % (auto) 0.7 % (0.0-2.0); Eosinophils # (auto) 0.1 10 ^3/uL (0-0.8); Eosinophils % (auto) 1.4 % (0.0-7.0); Hematocrit 43.9 % (41.0-53.0); Hemoglobin 14.7 g/dL (13.5-17.5); Lymphocytes # (auto) 1.3 10 ^3/uL (0.4-5.4); Lymphocytes % (auto) 18.9 % (10.0-50.0); Mean Corpuscular Hemoglobin 30.2 pg (28.0-32.0); Mean Corpuscular Hgb Conc. 33.4 g/dL (32.0-36.0); Mean Corpuscular Volume 90.4 fL (80.0-100.0); Monocytes # (auto) 0.5 10 ^3/uL (0-1.3); Monocytes % (auto) 7.9 % (0.0-12.0); Neutrophils # (auto) 4.9 10 ^3/uL (1.6-8.6); Neutrophils % (auto) 71.1 % (37.0-80.0); Nucleated Red Blood Cells % 0.2 %; Red Blood Cells 4.85 10^6/uL (4.5-5.90); Red Cell Distribution Width 13.8 % (11.8-14.3); White Blood Cell 6.9 10^3/uL (4.4-10.8)
[2023-02-25 10:46] LABS: Potassium 4.5 mmol/L (3.5-5.1)
[2023-02-25 10:50] LABS: Albumin 3.4 g/dL (3.4-5.0); BUN/Creatinine Ratio 14.5 (10.0-20.0); Bilirubin, Total 0.4 mg/dL (0.2-1.0); Calcium 8.6 mg/dL (8.5-10.1)
== END | disposition home or self-care (01) ==
LOC: LAB 09:15
PROVIDERS: ATTEND Internal Medicine
DX: R73.03 Prediabetes (principal); I50.32 Chronic diastolic (congestive) heart failure
CPT/HCPCS: 36415; 80053; 85025

== ENCOUNTER → 2023-03-04 | Outpatient (CLI) | payer OTHER | END | disposition home or self-care (01) | LOC: LAB 14:23 | PROVIDERS: ATTEND Urology | DX: R97.20 Elevated prostate specific antigen [PSA] (principal) | CPT/HCPCS: 84153 ==

== ENCOUNTER → 2023-04-06 | Outpatient (CLI) | payer OTHER ==
[2023-04-06 11:45] LABS: Potassium 4.2 mmol/L (3.5-5.1)
[2023-04-06 11:53] LABS: BUN/Creatinine Ratio 19.4 (10.0-20.0); Calcium 8.4 mg/dL (8.5-10.1)
== END | disposition home or self-care (01) ==
LOC: LAB 10:23
PROVIDERS: ATTEND Internal Medicine
DX: E11.9 Type 2 diabetes mellitus without complications (principal)
CPT/HCPCS: 36415; 80048

== ENCOUNTER → 2023-07-01 | Outpatient (CLI) | payer OTHER ==
[2023-07-01 18:14] LABS: Alanine Aminotransferase 21 U/L (7-40); Albumin 4.4 g/dL (3.2-4.8); Alkaline Phosphatase 82 U/L (46-116); Anion Gap 5 (5-15); Aspartate Aminotransferase 18 U/L (13-40); BUN/Creatinine Ratio 13.3 (10.0-20.0); Bilirubin, Total 0.4 mg/dL (0.2-1.0); Blood Urea Nitrogen 16 mg/dL (9-23); Carbon Dioxide 30 mmol/L (20-30); Chloride 109 mmol/L (98-107); Glucose 89 mg/dL (74-106); Potassium 4.4 mmol/L (3.5-5.1); Sodium 144 mmol/L (136-145); Total Protein 6.9 g/dL (5.7-8.2)
[2023-07-02 08:29] LABS: Creatinine, Urine 65.46 mg/dL (30.0-125.0)
[2023-07-02 08:32] LABS: Micro Albumin < 3.0 mg/L (<30.0)
== END | disposition home or self-care (01) ==
LOC: LAB 15:37
PROVIDERS: ATTEND Internal Medicine
DX: Z12.11 Encounter for screening for malignant neoplasm of colon (principal); R73.03 Prediabetes
CPT/HCPCS: 36415; 80053; 82043; 82570; 83036

== ENCOUNTER → 2023-10-05 | Outpatient (CLI) | payer OTHER ==
[2023-10-05 10:05] LABS: Chloride 108 mmol/L (98-107); Potassium 3.8 mmol/L (3.5-5.1); Sodium 141 mmol/L (136-145)
[2023-10-05 10:06] LABS: Anion Gap 7 (5-15); Calcium 8.6 mg/dL (8.5-10.1); Carbon Dioxide 26 mmol/L (20-30)
[2023-10-05 10:11] LABS: BUN/Creatinine Ratio 17.4 (10.0-20.0); Blood Urea Nitrogen 19 mg/dL (9-23); Glucose 109 mg/dL (74-106)
== END | disposition home or self-care (01) ==
LOC: LAB 09:23
PROVIDERS: ATTEND Internal Medicine
DX: Z12.11 Encounter for screening for malignant neoplasm of colon (principal); R73.03 Prediabetes
CPT/HCPCS: 36415; 80048; 82270; 83036

== ENCOUNTER → 2024-01-29 | Outpatient (CLI) | payer OTHER ==
[~2024-01-29] MED LIST changes: -ALBU108A14 IN; -ALBUAER3 IN; +APIX5TAB PO; -CHOL1CAP58 PO; +CLIN1CAP70 PO; +EMPA1TAB PO; +ERGO1CAP12 PO; +FLUT1AER17 INH; +PANT40TA2 PO; -PRED20TA2 PO; -TAMIFLU PO; +ZOFR4T PO
== END | disposition home or self-care (01) ==
LOC: XYW 15:58
PROVIDERS: ATTEND Student in an Organized Health Care Education/Training Program
DX: Z01.810 Encounter for preprocedural cardiovascular examination (principal)
CPT/HCPCS: 93306

== ENCOUNTER → 2024-02-09 | Outpatient (CLI) | payer OTHER ==
[~2024-02-09] VITALS: Ht 172.7 cm; Wt 149.7 kg
[~2024-02-09] MED LIST changes: +METOPROLOL TARTRATE 1MG/1ML-5ML VIAL IV ONE
[2024-02-09] MEDS: ATROPINE SULF 0.5 MG/5ML SYR ONE (08:33)
[2024-02-09] MEDS: METOPROLOL TARTRATE 1MG/1ML-5ML VIAL IV ONE (08:33)
[2024-02-09 09:07] VITALS: BP 116/76
[2024-02-09] MEDS: DOBUTamine 1000MCG/ML 100 ML IV ONE (09:07)
[2024-02-09] MEDS: DOBUTamine 1000MCG/ML 250 ML IV ONE (09:10)
== END | disposition home or self-care (01) ==
LOC: XYW 02-08 10:23
PROVIDERS: ATTEND Student in an Organized Health Care Education/Training Program
DX: Z01.810 Encounter for preprocedural cardiovascular examination (principal)
CPT/HCPCS: 93017; 93350; J1250; J0461

== ENCOUNTER 2024-03-18 09:31 | Day surgery (SDC) | payer OTHER ==
[2024-03-16 14:49] LABS: Urine Bacteria None Seen /hpf (None Seen)
[2024-03-16 14:55] LABS: Basophils # (auto) 0 10 ^3/uL (0-0.2); Basophils % (auto) 0.7 % (0.0-2.0); Eosinophils # (auto) 0.1 10 ^3/uL (0-0.8); Eosinophils % (auto) 1.3 % (0.0-7.0); Hemoglobin 15.1 g/dL (13.5-17.5); Lymphocytes # (auto) 1.5 10 ^3/uL (0.4-5.4); Mean Corpuscular Hemoglobin 29.8 pg (28.0-32.0); Mean Corpuscular Hgb Conc. 34.2 g/dL (32.0-36.0); Mean Corpuscular Volume 87.1 fL (80.0-100.0); Monocytes # (auto) 0.6 10 ^3/uL (0-1.3); Monocytes % (auto) 9.6 % (0.0-12.0); Neutrophils # (auto) 4.1 10 ^3/uL (1.6-8.6); Neutrophils % (auto) 65.4 % (37.0-80.0); Nucleated Red Blood Cells % 0.1 %; Red Blood Cells 5.05 10^6/uL (4.5-5.90); Red Cell Distribution Width 13.8 % (11.8-14.3); White Blood Cell 6.3 10^3/uL (4.4-10.8)
[2024-03-16 15:12] LABS: Urine Blood Negative /uL (Negative); Urine Clarity Clear (Clear); Urine Color Light-Yellow (Yellow); Urine Protein, UAD Negative (Negative); Urine Specific Gravity 1.029 (1.001-1.035); Urine Urobilinogen Normal (Negative); Urine WBC 1 /hpf (0 - 3)
[2024-03-16 15:26] LABS: Alanine Aminotransferase 29 U/L (7-40); Albumin 4.2 g/dL (3.2-4.8); Alkaline Phosphatase 78 U/L (46-116); Anion Gap 7 (5-15); Aspartate Aminotransferase 16 U/L (13-40); Blood Urea Nitrogen 17 mg/dL (9-23); Calcium 9.3 mg/dL (8.7-10.4); Carbon Dioxide 26 mmol/L (20-30); Chloride 110 mmol/L (98-107); Glucose 87 mg/dL (74-106); Partial Thromboplastin Time 28.3 SEC (24.5-34.5); Potassium 4.2 mmol/L (3.5-5.1); Prothrombin Time 10.6 sec (9.3-11.8); Sodium 143 mmol/L (136-145)
[2024-03-16 15:27] LABS: Bilirubin, Total 0.5 mg/dL (0.2-1.0); Total Protein 6.7 g/dL (5.7-8.2)
[~2024-03-18] VITALS: Ht 172.7 cm; Wt 149.7 kg
[~2024-03-18 09:31] MED LIST changes: -METOPROLOL TARTRATE 1MG/1ML-5ML VIAL IV ONE
[2024-03-18] MEDS ORDERED: LIDOCAINE 1% INJ PF 5ML AMP ONE (11:51)
[2024-03-18] MEDS ORDERED: PROPOFOL 10 MG/ML 20 ML IV ONE ×2 (11:51→12:22)
[2024-03-18 12:40] VITALS: TEMP 97.6; O2SAT 96
[2024-03-18 13:10] VITALS: BP 114/61; PULSE 57; RESP 17; O2SAT 97
== END 2024-03-18 13:20 | disposition home or self-care (01) ==
LOC: GI 09:31
PROVIDERS: ATTEND Internal Medicine Gastroenterology
DX: K92.1 Melena (principal); D12.3 Benign neoplasm of transverse colon; K62.1 Rectal polyp; K57.30 Diverticulosis of large intestine without perforation or abscess without bleeding; K64.8 Other hemorrhoids; I11.0 Hypertensive heart disease with heart failure; I50.9 Heart failure, unspecified; I48.0 Paroxysmal atrial fibrillation; E78.5 Hyperlipidemia, unspecified; G47.33 Obstructive sleep apnea (adult) (pediatric); E66.01 Morbid (severe) obesity due to excess calories; Z79.899 Other long term (current) drug therapy; Z98.890 Other specified postprocedural states; Z87.891 Personal history of nicotine dependence; Z88.5 Allergy status to narcotic agent
CPT/HCPCS: 36415; 45380; 45385; 80053; 81001; 85025; 85610; 85730; 88305; J2704; J7030

== ENCOUNTER → 2024-03-30 | Outpatient (CLI) | payer OTHER ==
[2024-03-30 13:18] LABS: Creatinine, Urine 14.77 mg/dL (30.0-125.0)
[2024-03-30 13:19] LABS: BUN/Creatinine Ratio 11.5 (10.0-20.0); Blood Urea Nitrogen 13 mg/dL (9-23); Glucose 102 mg/dL (74-106)
[2024-03-30 13:20] LABS: Anion Gap 5 (5-15); Calcium 9.2 mg/dL (8.7-10.4); Carbon Dioxide 27 mmol/L (20-30); Chloride 110 mmol/L (98-107); Micro Albumin < 3.0 mg/L (<30.0); Potassium 4.1 mmol/L (3.5-5.1); Sodium 142 mmol/L (136-145)
[2024-03-30 13:26] LABS: Microalb/Creat Ratio, Urine < 20.00
== END | disposition home or self-care (01) ==
LOC: LAB 12:25
PROVIDERS: ATTEND Internal Medicine
DX: I10 Essential (primary) hypertension (principal); J44.9 Chronic obstructive pulmonary disease, unspecified; E78.5 Hyperlipidemia, unspecified
CPT/HCPCS: 36415; 80048; 82043; 82570; 83036

== ENCOUNTER → 2024-07-20 | Outpatient (CLI) | payer OTHER ==
[2024-07-20 09:49] LABS: Cholesterol 155 mg/dL (< 200)
[2024-07-20 09:50] LABS: Triglycerides 80 mg/dL (< 150)
[2024-07-20 09:52] LABS: HDL Cholesterol 42 mg/dL (40-59)
[2024-07-20 09:56] LABS: LDL Cholesterol 104 mg/dL (< 100)
== END | disposition home or self-care (01) ==
LOC: LAB 08:51
PROVIDERS: ATTEND Internal Medicine
DX: E66.9 Obesity, unspecified (principal); E78.5 Hyperlipidemia, unspecified; I50.32 Chronic diastolic (congestive) heart failure
CPT/HCPCS: 36415; 80061; 82607

== ENCOUNTER → 2024-09-20 | Outpatient (CLI) | payer OTHER ==
[2024-09-20 09:00] LABS: Erythrocyte Sedimentation Rate 14 mm/hr (0-20)
== END | disposition home or self-care (01) ==
LOC: LAB 07:55
PROVIDERS: ATTEND Internal Medicine
DX: R73.03 Prediabetes (principal); E78.5 Hyperlipidemia, unspecified; M54.2 Cervicalgia
CPT/HCPCS: 36415; 82746; 84443; 85652; 86141

== ENCOUNTER → 2024-10-24 | Outpatient (CLI) | payer OTHER ==
[2024-10-24 09:00] LABS: Creatinine, Urine 191.07 mg/dL (30.0-125.0)
[2024-10-24 09:06] LABS: Alanine Aminotransferase 25 U/L (7-40); Albumin 4.3 g/dL (3.2-4.8); Alkaline Phosphatase 78 U/L (46-116); Anion Gap 5 (5-15); Aspartate Aminotransferase 18 U/L (13-40); BUN/Creatinine Ratio 16.8 (10.0-20.0); Bilirubin, Total 0.6 mg/dL (0.2-1.0); Blood Urea Nitrogen 19 mg/dL (9-23); Calcium 9.4 mg/dL (8.7-10.4); Carbon Dioxide 28 mmol/L (20-31); Cholesterol 156 mg/dL (< 200); Glucose 104 mg/dL (74-106); Potassium 3.9 mmol/L (3.5-5.1); Sodium 142 mmol/L (136-145); Total Protein 6.8 g/dL (5.7-8.2); Triglycerides 102 mg/dL (< 150)
[2024-10-24 09:08] LABS: Chloride 109 mmol/L (98-107); HDL Cholesterol 37 mg/dL (40-59); LDL Cholesterol 110 mg/dL (< 100)
== END | disposition home or self-care (01) ==
LOC: LAB 07:48
PROVIDERS: ATTEND Internal Medicine
DX: I48.0 Paroxysmal atrial fibrillation (principal); R73.03 Prediabetes; E66.9 Obesity, unspecified
CPT/HCPCS: 36415; 80053; 80061; 82043; 82570; 84153

== ENCOUNTER 2025-02-06 09:39 | Outpatient (CLI) | payer OTHER ==
[2025-02-06 11:05] LABS: Bilirubin, Total 0.6 mg/dL (0.2-1.0); Total Protein 6.4 g/dL (5.7-8.2)
[2025-02-06 11:21] LABS: Bilirubin, Direct 0.2 mg/dL (<0.3)
== END 2025-02-06 17:00 | disposition home or self-care (01) ==
LOC: LAB 09:39
PROVIDERS: ATTEND Internal Medicine
DX: E78.5 Hyperlipidemia, unspecified (principal); E11.9 Type 2 diabetes mellitus without complications
CPT/HCPCS: 36415; 80061; 80076

== ENCOUNTER 2025-04-27 15:06 | Outpatient (CLI) | payer OTHER | END 2025-04-27 17:00 | disposition home or self-care (01) | LOC: RT 15:06 | PROVIDERS: ATTEND Internal Medicine Pulmonary Disease | DX: J44.9 Chronic obstructive pulmonary disease, unspecified (principal); R06.09 Other forms of dyspnea; Z87.891 Personal history of nicotine dependence; Z79.51 Long term (current) use of inhaled steroids | CPT/HCPCS: 94060; 94727; 94729 ==

== ENCOUNTER 2025-05-09 09:55 | Outpatient (CLI) | payer OTHER ==
[2025-05-09 11:35] LABS: Alanine Aminotransferase 23.0 U/L (7-40); Albumin 4.0 g/dL (3.2-4.8); Alkaline Phosphatase 68.0 U/L (46-116)
[2025-05-09 11:36] LABS: Cholesterol 104.0 mg/dL (< 200); Total Protein 6.6 g/dL (5.7-8.2); Triglycerides 70.0 mg/dL (< 150)
[2025-05-09 11:37] LABS: Creatine Kinase IFCC 191.0 U/L (46-171)
[2025-05-09 11:38] LABS: Bilirubin, Direct 0.3 mg/dL (<0.3); Bilirubin, Total 0.7 mg/dL (0.2-1.0)
[2025-05-09 11:43] LABS: HDL Cholesterol 40.0 mg/dL (40-59)
== END 2025-05-09 17:00 | disposition home or self-care (01) ==
LOC: LAB 09:55
PROVIDERS: ATTEND Internal Medicine
DX: E11.9 Type 2 diabetes mellitus without complications (principal); E78.5 Hyperlipidemia, unspecified
CPT/HCPCS: 36415; 80061; 80076; 82550; 83036